=== PATIENT | female | born 1930 | race Caucasian/White ===

== ENCOUNTER 2016-05-05 06:50 | Emergency (ER) | payer MEDICARE ==
--- NOTE | 2016-05-05 08:33 | EDM.PDOC ---
ED HISTORY OF PRESENT ILLNESS - General Chief Complaint: Chest Pain Stated Complaint: CHEST PAIN Time Seen by Provider: 05/05/16 07:00 Source of Information: Reports: Patient History Limitations: Reports: No limitations - History of Present Illness INITIAL COMMENTS - FREE TEXT/NARRATIVE: History of present illness: [] patient started having substernal nonradiating chest pain 11:15 last night and took 3 of her nitroglycerin's without complete resolution of pain she continued to have pain and called the ambulance. The worse pain is right at 4/ 10 and when I interviewed at bedside her pain was completely subsided. She denies any shortness of breath at this time although she felt short of breath when the pain first started. She denies any dizziness, syncope, sweating, nausea or vomiting. Review of systems: As per history of present illness and below otherwise all systems reviewed and negative. Past medical history: As per history of present illness and as reviewed below otherwise noncontributory. Surgical history: As per history of present illness and as reviewed below otherwise noncontributory. Social history: No reported history of drug or alcohol abuse. Family history: As per history of present illness and as reviewed below otherwise noncontributory. Physical exam: General: Well developed, well nourished in NAD HEENT: Atraumatic, normocephalic, pupils reactive, negative for conjunctival pallor or scleral icterus, mucous membranes moist, throat clear, neck supple, nontender, trachea midline. Lungs: Clear to auscultation, breath sounds equal bilaterally, chest nontender. Heart: S1S2, regular, negative for clicks, rubs, or JVD. Abdomen: Soft, nondistended, nontender. Negative for masses or hepatosplenomegaly. Negative for costovertebral tenderness. Pelvis: Stable nontender. Genitourinary: Deferred. Rectal: Deferred. Extremities: Atraumatic, negative for cords or calf pain. Neurovascular unremarkable. Neuro: Awake, alert, oriented. Cranial nerves II through XII unremarkable. Cerebellum unremarkable. Motor and sensory unremarkable throughout. Exam nonfocal. Diagnostics: [] Labs x-ray EKG showing no signs of acute OR Therapeutics: [] Impression: [] Chest pain Plan: [] Followup with PMD or Dr. Vaca return to ED if symptoms worsen or change. Definitive disposition and diagnosis as appropriate pending reevaluation and review of above. - Related Data Allergies/ADRs: Allergies Allergy/AdvReac Type Severity Reaction Status Date / Time hydromorphone HCl Allergy Cannot Verified 05/05/16 07:04 [From Dilaudid] Remember Iodinated Contrast Media - Allergy Cannot Verified 05/05/16 07:04 Oral and Remember [Iodinated Contrast Media - IV Dye] meperidine HCl [From Demerol] Allergy Cannot Verified 05/05/16 07:04 Remember metoclopramide Allergy Cannot Verified 05/05/16 07:04 Remember Penicillins Allergy Cannot Verified 05/05/16 07:04 Remember propoxyphene HCl Allergy Cannot Verified 05/05/16 07:04 [From Darvon] Remember Home Meds: Home Meds Albuterol Sulfate [Proair Respiclick] 2 inhaler LOREE Q6H 05/05/16 [History] Furosemide [Lasix] 40 mg PO DAILY 05/05/16 [History] Iron Polysaccharide Complex [Poly-Iron] 150 mg PO DAILY 05/05/16 [History] Isosorbide Mononitrate [Imdur] 30 mg PO DAILY 05/05/16 [History] Levothyroxine [Synthroid] 1 tab PO DAILY 05/05/16 [History] Nitroglycerin [Nitrostat] 0.4 mg SL ASDIRECTED PRN 05/05/16 [History] Warfarin [Coumadin] 1 tab PO DAILY 05/05/16 [History] Past Medical History HEENT History: Reports: Other (see below) Other HEENT History: dysphagia Cardiovascular History: Reports: Hypertension, Other (see below) Other Cardiovascular History: lung nodule followed by CT Respiratory History: Reports: Bronchitis, recurrent, Other (see below) Other Respiratory History: On 07/16/[address] scan identified 6 mm nodule plural base. History of PE. Gastrointestinal History: Reports: Bowel obstruction, GERD Genitourinary History: Reports: None CHILD ADVOCATE History: Reports: Other OB/BYN History: Of breast cancer right side/right mastectomy Neurological History: Reports: Other (see below) Other Neuro History: tardive dyskinesia Psychiatric History: Reports: None Endocrine/Metabolic History: Reports: Hypothyroidism, Other (see below) Other Endocrine/Metabolic History: none Hematologic History: Reports: Anemia, Anticoagulation therapy Other Hematologic History: DVT and PE Immunologic History: Reports: Other (see below) Other Immunologic History: lupus Oncologic (Cancer) History: Reports: Breast, Other (see below) Other Oncologic History: left breast Dermatologic History: Reports: None - Infectious Disease History Infectious Disease History: Reports: Chicken pox, Measles, Mumps - Past Surgical History HEENT Surgical History: Reports: Adenoidectomy, Tonsillectomy Cardiovascular Surgical History: Reports: None GI Surgical History: Reports: Appendectomy, Other (see below) Other GI Surgeries/Procedures: laparotomy Female Surgical History: Reports: Breast biopsy, D&C, Hysterectomy, Mastectomy, Tubal ligation, Other (see below) Other Female Surgeries/Procedures: left masectomy Endocrine Surgical History: Reports: Thyroidectomy, Other (see below) Other Endocrine Surgeries/Procedures: goiter removal Oncologic Surgical History: Reports: Biopsy of breast, Mastectomy, Other (see below) Other Oncologic Surgeries/Procedures: left breast Social & Family History - Family History Family Medical History: Noncontributory - Tobacco Use Smoking Status *Q: Never Smoker Second Hand Smoke Exposure: No - Caffeine Use Caffeine Use: Reports: None - Recreational Drug Use Recreational Drug Use: No ED ROS GENERAL - Review of Systems Review Of Systems: See Below (See history of present illness) ED EXAM, GENERAL - Physical Exam Exam: See Below (See history of present illness) Course - Vital Signs Last Recorded V/S: Last Vital Signs Temp 36.9 C 05/05/16 08:50 Pulse 60 05/05/16 08:50 Resp 18 05/05/16 08:50 BP 131/72 05/05/16 08:50 Pulse Ox 100 05/05/16 08:50 - Orders/Labs/Meds Orders: Active Orders 24 hr Category Date Time Status Cardiac Monitoring [RC] . DIRECTED Care 05/05/16 07:00 Active EKG Documentation Completion [RC] STAT Care 05/05/16 07:00 Active Chest 1V Frontal [CR] Stat Exams 05/05/16 07:01 Taken Labs: Laboratory Tests 05/05/16 05/05/16 05/05/16 Range/Units 07:11 07:11 07:11 WBC 4.81 (4.0-11.0) K/uL RBC 3.29 L (4.30-5.90) M/uL Hgb 9.6 L (12.0-16.0) g/dL Hct 30.3 L (36.0-46.0) % MCV 92.1 (80.0-98.0) fL MCH 29.2 (27.0-32.0) pg MCHC 31.7 (31.0-37.0) g/dL RDW Std Deviation 53.8 (28.0-62.0) fl RDW Coeff of Avinash 16 H (11.0-15.0) % Plt Count 154 (150-400) K/uL MPV 9.00 (7.40-12.00) fL Neut % (Auto) 69.9 (48.0-80.0) % Lymph % (Auto) 18.1 (16.0-40.0) % [place] % (Auto) 8.1 (0.0-15.0) % Eos % (Auto) 3.5 (0.0-7.0) % Baso % (Auto) 0.4 (0.0-1.5) % Neut # 3.4 (1.4-5.7) K/uL Lymph # 0.9 (0.6-2.4) K/uL [place] # 0.4 (0.0-0.8) K/uL Eos # 0.2 (0.0-0.7) K/uL Baso # 0.0 (0.0-0.1) K/uL Nucleated RBC % 0.0 /100WBC Nucleated RBCs # 0 K/uL INR 1.01 (0.86-1.11) Sodium 138 (136-146) mmol/L Potassium 3.7 (3.5-5.1) mmol/L Chloride 102 (98-110) mmol/L Carbon Dioxide 26 (21-31) mmol/L BUN 12 (6.0-23.0) mg/dL Creatinine 0.9 (0.6-1.5) mg/dL Est Cr Clr Drug Dosing 38.49 mL/min Estimated GFR (MDRD) 59.7 ml/min Glucose 77 (60-110) mg/dL Calcium 8.5 L (8.8-10.8) mg/dL Total Bilirubin 0.2 (0.1-1.5) mg/dL AST 28 (5-40) IU/L ALT 15 (8-54) IU/L Alkaline Phosphatase 45 (40-150) CK-MB (CK-2) 6.7 H (0-6.6) ng/ml Troponin I (0.0-0.29) NG/ML B-Natriuretic Peptide (<100) PG/ML Total Protein 7.1 (6.0-8.0) g/dL Albumin 2.6 L (3.4-4.8) g/dL Globulin 4.5 H (2.0-3.5) g/dL Albumin/Globulin Ratio 0.6 L (1.3-2.8) 05/05/16 05/05/16 Range/Units 07:11 07:11 WBC (4.0-11.0) K/uL RBC (4.30-5.90) M/uL Hgb (12.0-16.0) g/dL Hct (36.0-46.0) % MCV (80.0-98.0) fL MCH (27.0-32.0) pg MCHC (31.0-37.0) g/dL RDW Std Deviation (28.0-62.0) fl RDW Coeff of Avinash (11.0-15.0) % Plt Count (150-400) K/uL MPV (7.40-12.00) fL Neut % (Auto) (48.0-80.0) % Lymph % (Auto) (16.0-40.0) % [place] % (Auto) (0.0-15.0) % Eos % (Auto) (0.0-7.0) % Baso % (Auto) (0.0-1.5) % Neut # (1.4-5.7) K/uL Lymph # (0.6-2.4) K/uL [place] # (0.0-0.8) K/uL Eos # (0.0-0.7) K/uL Baso # (0.0-0.1) K/uL Nucleated RBC % /100WBC Nucleated RBCs # K/uL INR (0.86-1.11) Sodium (136-146) mmol/L Potassium (3.5-5.1) mmol/L Chloride (98-110) mmol/L Carbon Dioxide (21-31) mmol/L BUN (6.0-23.0) mg/dL Creatinine (0.6-1.5) mg/dL Est Cr Clr Drug Dosing mL/min Estimated GFR (MDRD) ml/min Glucose (60-110) mg/dL Calcium (8.8-10.8) mg/dL Total Bilirubin (0.1-1.5) mg/dL AST (5-40) IU/L ALT (8-54) IU/L Alkaline Phosphatase (40-150) CK-MB (CK-2) (0-6.6) ng/ml Troponin I < 0.10 (0.0-0.29) NG/ML B-Natriuretic Peptide 113 H (<100) PG/ML Total Protein (6.0-8.0) g/dL Albumin (3.4-4.8) g/dL Globulin (2.0-3.5) g/dL Albumin/Globulin Ratio (1.3-2.8) Departure - Departure Time of Disposition: 08:33 Disposition: Home, Self-Care 01 Condition: good Clinical Impression: Chest pain Qualifiers: Chest pain type: unspecified Qualified Code(s): R07.9 - Chest pain, unspecified Referrals: Deandre Antony MD [Primary Care Provider] - Forms: ED Department Discharge Additional Instructions: The following information is given to patients seen in the emergency department who are being discharged to home. This information is to outline your options for follow-up care. We provide all patients seen in our emergency department with a follow-up referral. The need for follow-up, as well as the timing and circumstances, are variable depending upon the specifics of your emergency department visit. If you don't have a primary care physician on staff, we will provide you with a referral. We always advise you to contact your personal physician following an emergency department visit to inform them of the circumstance of the visit and for follow-up with them and/or the need for any referrals to a consulting specialist. The emergency department will also refer you to a specialist when appropriate. This referral assures that you have the opportunity for follow-up care with a specialist. All of these measure are taken in an effort to provide you with optimal care, which includes your follow-up. Under all circumstances we always encourage you to contact your private physician who remains a resource for coordinating your care. When calling for follow-up care, please make the office aware that this follow-up is from your recent emergency room visit. If for any reason you are refused follow-up, please contact the [facility] Emergency Department at and asked to speak to the emergency department charge nurse. Take one extra dose of her Coumadin today then continue regular dosing Follow up with Dr. Vaca on Monday at 10:30 AM [facility] [address] [place] [address] [phone]
[2016-05-05 09:05] VITALS: BP 131/72
--- NOTE | 2016-05-05 16:08 | CR ---
EXAM DATE: 05/05/16 PATIENT'S AGE: 85 Patient: KATHI ELIZONDO Facility: [place], [place] Site . Site : [id number] Study: XRay Chest [id number]/9/2017 9:24:28 AM Ordering Physician: José Miguel Benites Final Report: HISTORY: Chest pain. Technique: One view portable chest. Comparison: Chest x-ray 07/14/2015. Findings: Atelectasis or scarring at the left lung base. Bilateral peripheral increased interstitial opacities similar to prior. No airspace consolidation. No pleural effusion or pneumothorax. Cardiomediastinal silhouette is unchanged. Surgical clips in left axilla. Impression: Bilateral peripheral interstitial opacities similar to 07/14/2015 chest x-ray may be chronic fibrotic changes or interstitial edema. Dictated by Torey Gonzalez MD @ May 05 2016 9:29AM (Electronic Signature) Report Signed by Proxy and Original Signed Document filed in the Medical Record. MTDD
== END 2016-05-05 09:15 | disposition home or self-care (01) ==
LOC: MW.ED 06:50
DX: R07.2 Precordial pain (principal); I10 Essential (primary) hypertension; K21.9 Gastro-esophageal reflux disease without esophagitis; Z85.3 Personal history of malignant neoplasm of breast; Z90.11 Acquired absence of right breast and nipple; Z90.49 Acquired absence of other specified parts of digestive tract; Z98.890 Other specified postprocedural states; E89.0 Postprocedural hypothyroidism; Z90.710 Acquired absence of both cervix and uterus; Z79.899 Other long term (current) drug therapy; Z88.0 Allergy status to penicillin; Z88.8 Allergy status to other drugs, medicaments and biological substances; Z88.5 Allergy status to narcotic agent; Z91.041 Radiographic dye allergy status
CPT/HCPCS: 36415; 71010; 71010-26; 80053; 82553; 83880; 84484; 85025; 85610; 99284; 99285-25

== ENCOUNTER → 2016-05-10 | Outpatient (CLI) | payer MEDICARE | LOC: MW.CHIM 08:00 | PROVIDERS: ATTEND Internal Medicine | DX: I35.0 Nonrheumatic aortic (valve) stenosis (principal); I48.91 Unspecified atrial fibrillation; I20.9 Angina pectoris, unspecified; I10 Essential (primary) hypertension | CPT/HCPCS: 99214 ==

== ENCOUNTER → 2016-05-12 | Outpatient (CLI) | payer MEDICARE | LOC: MW.CHFP 08:00 | PROVIDERS: ATTEND Emergency Medicine | DX: Z51.81 Encounter for therapeutic drug level monitoring (principal); Z79.01 Long term (current) use of anticoagulants; I48.91 Unspecified atrial fibrillation | CPT/HCPCS: 85610; 99211 ==

== ENCOUNTER → 2016-05-24 | Outpatient (CLI) | payer MEDICARE ==
--- NOTE | 2016-05-24 10:50 | NM ---
EXAMINATION: Nuclear medicine myocardial perfusion study HISTORY: Atrial fibrillation. PROCEDURE: Following intravenous administration of 0.4 mg of Lexiscan and 27.4 mCi of technetium 99m sestamib i, stress SPECT images including gating imaging was performed. FINDINGS: Stress myocardial SPECT images demonstrates mildly decreased perfusion along the inferior wall from the midportion and base. Review of gated images demonstrates normal wall motion, contractility and wall thickening. The left ventricular ejection fraction is 66 %. The left ventricular chamber size is normal. IMPRESSION: 1. Mildly decreased perfusion along the inferior wall, correlation with rest imaging may be benefici al. 2. Normal ventricular chamber size and function with ejection fraction of 66 %.
--- NOTE | 2016-05-24 18:26 | PCM.PRNOTE ---
- Free Text/Narrative Note: Lexiscan Indication chest pain Patient was supervised today during infusion portion of the stress test. The patient received Regadenoson 0.4 mg IV and nuclear agent using standard protocol. Sestamibi Tm99 25 Mci was gievn afterwards Baseline blood pressure is 103/59 with a heart rate 67 EKG sinus rhythm without ST abnormalities Vital signs at injection: Peak blood pressure 109/59 with a heart rate of 67 Vital signs at 4 minutes post injection: Peak blood pressure 139/75 with a heart rate of 66 EKG sinus rhythm without further ST changes Patient complains of abdominal cramps and headaches spontaneously resolved Adverse effects from Liz scan none Test done due to end of protocol Impression 1. electrocardiographically nondiagnostic for ischemia due to chemical protocol 2. nuclear imaging pending
== END ==
LOC: MW.NM 06:53
PROVIDERS: ATTEND Internal Medicine
DX: I48.91 Unspecified atrial fibrillation (principal); Z51.81 Encounter for therapeutic drug level monitoring; Z79.01 Long term (current) use of anticoagulants; I82.409 Acute embolism and thrombosis of unspecified deep veins of unspecified lower extremity
CPT/HCPCS: 78451; 85610; 93017; 99211; A9500; J2785

== ENCOUNTER → 2016-06-08 | Outpatient (CLI) | payer MEDICARE ==
[2016-06-08 10:50] LABS: CHLORIDE,CL 98 mmol/L (98-110); SODIUM,NA 136 mmol/L (136-146)
== END ==
LOC: MW.CHFP 10:00
PROVIDERS: ATTEND Emergency Medicine
DX: I10 Essential (primary) hypertension (principal); E11.59 Type 2 diabetes mellitus with other circulatory complications; I20.9 Angina pectoris, unspecified; E78.5 Hyperlipidemia, unspecified; E61.1 Iron deficiency; E03.9 Hypothyroidism, unspecified; D68.61 Antiphospholipid syndrome; J45.909 Unspecified asthma, uncomplicated; F41.0 Panic disorder [episodic paroxysmal anxiety]; D50.9 Iron deficiency anemia, unspecified
CPT/HCPCS: 36415; 80053; 80061; 83036; 83550; 84443; 85027; 85610; G0463

== ENCOUNTER → 2016-06-09 | Outpatient (CLI) | payer MEDICARE | LOC: MW.CHFP 08:00 | PROVIDERS: ATTEND Emergency Medicine | DX: Z51.81 Encounter for therapeutic drug level monitoring (principal); Z79.01 Long term (current) use of anticoagulants; I48.91 Unspecified atrial fibrillation | CPT/HCPCS: 85610; 99211 ==

== ENCOUNTER → 2016-06-14 | Outpatient (CLI) | payer MEDICARE | LOC: MW.CHIM 08:00 | PROVIDERS: ATTEND Internal Medicine | DX: I20.9 Angina pectoris, unspecified (principal); I35.0 Nonrheumatic aortic (valve) stenosis; I82.409 Acute embolism and thrombosis of unspecified deep veins of unspecified lower extremity; E78.5 Hyperlipidemia, unspecified | CPT/HCPCS: 99214 ==

== ENCOUNTER → 2016-06-15 | Outpatient (CLI) | payer MEDICARE | END | disposition home or self-care (01) | LOC: MW.CHFP 09:12 | PROVIDERS: ATTEND Emergency Medicine | DX: I48.91 Unspecified atrial fibrillation (principal); I82.409 Acute embolism and thrombosis of unspecified deep veins of unspecified lower extremity | CPT/HCPCS: 36415; 85610 ==

== ENCOUNTER → 2016-06-23 | Outpatient (CLI) | payer MEDICARE | LOC: MW.CHFP 11:13 | PROVIDERS: ATTEND Emergency Medicine | DX: I82.409 Acute embolism and thrombosis of unspecified deep veins of unspecified lower extremity (principal); Z51.81 Encounter for therapeutic drug level monitoring; Z79.01 Long term (current) use of anticoagulants; I48.91 Unspecified atrial fibrillation | CPT/HCPCS: 36415; 85014; 85018; 85610; 99211 ==

== ENCOUNTER → 2016-07-07 | Outpatient (CLI) | payer MEDICARE | LOC: MW.CHFP 08:00 | PROVIDERS: ATTEND Emergency Medicine | DX: Z51.81 Encounter for therapeutic drug level monitoring (principal); Z79.01 Long term (current) use of anticoagulants; I48.91 Unspecified atrial fibrillation | CPT/HCPCS: 85610; 99211 ==

== ENCOUNTER 2016-10-27 14:04 | Emergency (ER) | payer MEDICARE, SELFPAY ==
[2016-10-27 14:16] VITALS: BP 165/72
--- NOTE | 2016-10-27 14:53 | CR ---
EXAMINATION: Left shoulder HISTORY: Fall COMPARISON: None TECHNIQUE: 3 views FINDINGS: There is mildly displaced mid left clavicle fracture. The acromioclavicular and glenohumera l joints are preserved. The osseous structures appear mildly osteopenic. Clips project over the axill jack region. IMPRESSION: 1. Mid clavicle fracture.
--- NOTE | 2016-10-27 15:11 | EDM.PDOC ---
ED HPI GENERAL MEDICAL PROBLEM - General Chief Complaint: Upper Extremity Injury/Pain Stated Complaint: LEFT SHOULDER PAIN FROM FALL Time Seen by Provider: 10/27/16 15:04 - History of Present Illness INITIAL COMMENTS - FREE TEXT/NARRATIVE: HISTORY AND PHYSICAL: History of present illness: Patient is an 85-year-old white female presents status post fall she injured her left shoulder/clavicle she did this when she fell down approximately 8 stairs she denies any other trauma or concern she does have a history of chronic back pain and she is on multiple medicines including Coumadin she is followed at Coumadin clinic and had her last PT/INR check several weeks prior Review of systems: As per history of present illness and below otherwise all systems reviewed and negative. Past medical history: As per history of present illness and as reviewed below otherwise noncontributory. Surgical history: As per history of present illness and as reviewed below otherwise noncontributory. Social history: No reported history of drug or alcohol abuse. Family history: As per history of present illness and as reviewed below otherwise noncontributory. Physical exam: HEENT: Atraumatic, normocephalic, pupils reactive, negative for conjunctival pallor or scleral icterus, mucous membranes moist, throat clear, neck supple, nontender, trachea midline. Lungs: Clear to auscultation, breath sounds equal bilaterally, chest with left clavicle tenderness and what appears to be an obvious mid clavicle fracture clinically. Heart: S1S2, , negative for clicks, rubs, or JVD. Abdomen: Soft, nondistended, nontender. Negative for masses or hepatosplenomegaly. Negative for costovertebral tenderness. Pelvis: Stable nontender. Genitourinary: Deferred. Rectal: Deferred. Extremities: Atraumatic, negative for cords or calf pain. Neurovascular unremarkable. Neuro: Awake, alert, oriented. Cranial nerves II through XII unremarkable. Cerebellum unremarkable. Motor and sensory unremarkable throughout. Exam nonfocal. Diagnostics: CBC CMP PT/INR x-ray left shoulder CT brain EKG Therapeutics: To be determined Impression: #1 observation status post fall #2 left clavicle fracture Definitive disposition and diagnosis as appropriate pending reevaluation and review of above. Left Shoulder Pain Score (Numeric/FACES): 10 - Related Data Allergies Allergy/AdvReac Type Severity Reaction Status Date / Time hydromorphone HCl Allergy Other Verified 10/27/16 14:17 [From Dilaudid] Iodinated Contrast- Oral and Allergy Cannot Verified 10/27/16 14:17 IV Dye Remember [Iodinated Contrast Media - IV Dye] meperidine HCl [From Demerol] Allergy Hallucinati Verified 10/27/16 14:17 ons metoclopramide Allergy Cannot Verified 10/27/16 14:17 Remember Penicillins Allergy Swelling Verified 10/27/16 14:17 propoxyphene HCl Allergy Hallucinati Verified 10/27/16 14:17 [From Darvon] ons Home Meds: Home Meds Furosemide [Lasix] 40 mg PO DAILY 05/05/16 [History] Iron Polysaccharide Complex [Poly-Iron] 150 mg PO DAILY 05/05/16 [History] Isosorbide Mononitrate [Imdur] 30 mg PO DAILY 05/05/16 [History] Levothyroxine [Synthroid] 88 mcg PO DAILY 05/05/16 [History] Warfarin [Coumadin] 7.5 mg PO DAILY 05/05/16 [History] Acetaminophen with Codeine [Acetaminophen-Cod #3] 30 - 300 mg PO QID PRN [History] Atenolol [Tenormin] 50 mg PO BID 10/27/16 [History] Midodrine 2.5 mg PO DAILY 10/27/16 [History] Potassium Chloride 40 meq PO DAILY 10/27/16 [History] Past Medical History - Past Health History Medical/Surgical History: Denies Medical/Surgical History HEENT History: Reports: Other (See Below) Other HEENT History: dysphagia Cardiovascular History: Reports: Hypertension, [place] Other Cardiovascular History: lung nodule followed by CT Respiratory History: Reports: Bronchitis, Recurrent, Other (See Below) Other Respiratory History: On 07/16/[address] scan identified 6 mm nodule plural base. History of PE. Gastrointestinal History: Reports: Bowel Obstruction, GERD Genitourinary History: Reports: None ADVOCACY DIRECTOR History: Reports: Other OB/BYN History: Of breast cancer right side/right mastectomy Neurological History: Reports: CVA Other Neuro History: stroke 1991 Psychiatric History: Reports: None Endocrine/Metabolic History: Reports: Hypothyroidism, Other (See Below) Other Endocrine/Metabolic History: none Hematologic History: Reports: Anemia, Anticoagulation Therapy Other Hematologic History: DVT and PE Immunologic History: Reports: Other (See Below) Other Immunologic History: lupus Oncologic (Cancer) History: Reports: Breast Other Oncologic History: left breast removed Dermatologic History: Reports: None - Infectious Disease History Infectious Disease History: Reports: Chicken Pox, Measles, Mumps - Past Surgical History Cardiovascular Surgical History: Reports: None GI Surgical History: Reports: Appendectomy Other GI Surgeries/Procedures: surgery for bowel obstruction Female Surgical History: Reports: Breast Biopsy, D&C, Hysterectomy, Mastectomy, Other (See Below), Tubal Ligation Other Female Surgeries/Procedures: left breast removed Endocrine Surgical History: Reports: Thyroidectomy Oncologic Surgical History: Reports: Biopsy of Breast, Mastectomy, Other (See Below) Social & Family History - Family History Family Medical History: Noncontributory - Tobacco Use Smoking Status *Q: Never Smoker Second Hand Smoke Exposure: No - Caffeine Use Caffeine Use: Reports: Coffee Caffeine Use Comment: 3cups/day - Recreational Drug Use Recreational Drug Use: No Review of Systems - Review of Systems Review Of Systems: ROS reveals no pertinent complaints other than HPI. ED EXAM, GENERAL - Physical Exam Exam: See Below (See dictation) Course - Vital Signs Last Recorded V/S: Last Vital Signs Temp 36.8 C 10/27/16 14:09 Pulse 98 10/27/16 14:09 Resp 21 H 10/27/16 14:09 BP 165/72 H 10/27/16 14:09 Pulse Ox 97 10/27/16 14:09 - Orders/Labs/Meds Orders: Active Orders 24 hr Category Date Time Status EKG Documentation Completion [RC] STAT Care 10/27/16 15:08 Active Labs: Laboratory Tests 10/27/16 10/27/16 10/27/16 Range/Units 15:30 15:30 15:30 WBC 5.53 (4.0-11.0) K/uL RBC 3.37 L (4.30-5.90) M/uL Hgb 10.1 L (12.0-16.0) g/dL Hct 31.2 L (36.0-46.0) % MCV 92.6 (80.0-98.0) fL MCH 30.0 (27.0-32.0) pg MCHC 32.4 (31.0-37.0) g/dL RDW Std Deviation 54.6 (28.0-62.0) fl RDW Coeff of Avinash 16 H (11.0-15.0) % Plt Count 167 (150-400) K/uL MPV 9.20 (7.40-12.00) fL Neut % (Auto) 77.2 (48.0-80.0) % Lymph % (Auto) 12.1 L (16.0-40.0) % [place] % (Auto) 9.2 (0.0-15.0) % Eos % (Auto) 1.3 (0.0-7.0) % Baso % (Auto) 0.2 (0.0-1.5) % Neut # (Auto) 4.3 (1.4-5.7) K/uL Lymph # (Auto) 0.7 (0.6-2.4) K/uL [place] # (Auto) 0.5 (0.0-0.8) K/uL Eos # (Auto) 0.1 (0.0-0.7) K/uL Baso # (Auto) 0.0 (0.0-0.1) K/uL Nucleated RBC % 0.0 /100WBC Nucleated RBCs # 0 K/uL INR 4.04 H (0.86-1.11) Sodium 135 L (136-146) mmol/L Potassium 4.0 (3.5-5.1) mmol/L Chloride 102 (98-110) mmol/L Carbon Dioxide 22 (21-31) mmol/L BUN 15 (6.0-23.0) mg/dL Creatinine 1.0 (0.6-1.5) mg/dL Est Cr Clr Drug Dosing 34.64 mL/min Estimated GFR (MDRD) 52.8 ml/min Glucose 100 (60-110) mg/dL Calcium 9.1 (8.8-10.8) mg/dL Total Bilirubin 0.2 (0.1-1.5) mg/dL AST 21 (5-40) IU/L ALT 11 (8-54) IU/L Alkaline Phosphatase 47 (40-150) Total Protein 7.6 (6.0-8.0) g/dL Albumin 2.9 L (3.4-4.8) g/dL Globulin 4.7 H (2.0-3.5) g/dL Albumin/Globulin Ratio 0.6 L (1.3-2.8) Departure - Departure Time of Disposition: 16:23 Disposition: Home, Self-Care 01 Condition: Good Clinical Impression: Fracture of clavicle - Discharge Information Referrals: PCP,Unknown [Primary Care Provider] - Forms: ED Department Discharge Additional Instructions: The following information is given to patients seen in the emergency department who are being discharged to home. This information is to outline your options for follow-up care. We provide all patients seen in our emergency department with a follow-up referral. The need for follow-up, as well as the timing and circumstances, are variable depending upon the specifics of your emergency department visit. If you don't have a primary care physician on staff, we will provide you with a referral. We always advise you to contact your personal physician following an emergency department visit to inform them of the circumstance of the visit and for follow-up with them and/or the need for any referrals to a consulting specialist. The emergency department will also refer you to a specialist when appropriate. This referral assures that you have the opportunity for followup care with a specialist. All of these measure are taken in an effort to provide you with optimal care, which includes your followup. Under all circumstances we always encourage you to contact your private physician who remains a resource for coordinating your care. When calling for followup care, please make the office aware that this follow-up is from your recent emergency room visit. If for any reason you are refused follow-up, please contact the [facility] emergency department at and asked to speak to the emergency department charge nurse. [facility] Professional [address], [address] [place] [address] Sling as directed continue current medications hold Coumadin 2 days then resume follow-up with Coumadin clinic and/or private medical doctor for repeat PT/INR call to schedule appointment with orthopedic clinic as discussed return as needed as discussed - My Orders Last 24 Hours: My Active Orders 10/27/16 15:08 EKG Documentation Completion [RC] STAT - Assessment/Plan Last 24 Hours: My Active Orders 10/27/16 15:08 EKG Documentation Completion [RC] STAT
--- NOTE | 2016-10-27 16:07 | CT ---
EXAMINATION: Non contrast CT head. Coronal and sagittal reformats. HISTORY: Pain FINDINGS: No evidence of intra or extra axial hemorrhage, mass, midline shift, hydrocephalus or edema. Moderat e generalized atrophy. No hypoattenuation changes in the major vascular territories to suggest acute infarct. Likely old tin y right basal ganglia lacunar infarct. No abnormal intracranial calcifications are detected. No evidence of substantial vascular calcificat ions. Paranasal sinuses and mastoid air cells are well aerated without substantial findings. Pituitary fossa appears unremarkable. The orbits and globes are symmetric. Calvarium is intact. No evidence of skull fracture. IMPRESSION: 1. No acute intracranial findings. 2. Moderate generalized atrophy.
== END 2016-10-27 16:52 | disposition home or self-care (01) ==
LOC: MW.ED 14:04
DX: S42.022A Displaced fracture of shaft of left clavicle, initial encounter for closed fracture (principal); E03.9 Hypothyroidism, unspecified; K21.9 Gastro-esophageal reflux disease without esophagitis; Z86.718 Personal history of other venous thrombosis and embolism; Z86.711 Personal history of pulmonary embolism; Z91.041 Radiographic dye allergy status; Z88.0 Allergy status to penicillin; Z88.8 Allergy status to other drugs, medicaments and biological substances; Z79.899 Other long term (current) drug therapy; Z79.01 Long term (current) use of anticoagulants; Z86.73 Personal history of transient ischemic attack (TIA), and cerebral infarction without residual deficits; Z90.49 Acquired absence of other specified parts of digestive tract; W10.9XXA Fall (on) (from) unspecified stairs and steps, initial encounter; Z88.5 Allergy status to narcotic agent
CPT/HCPCS: 36415; 70450; 73030; 80053; 85025; 85610; 93005; 99284; A4566; 99283

== ENCOUNTER 2018-06-01 16:59 | Inpatient (IN) | payer MEDICARE ==
[2018-06-01] MEDS ORDERED: Sodium Chloride 0.9% 10 ML SDV IV PRN (17:01)
[2018-06-01] MEDS ORDERED: Sodium Chloride 0.9% 10 ML Syringe FLUSH PRN (17:01)
[2018-06-01] MEDS ORDERED: Sodium Chloride 0.9% 2.5 ML Syringe FLUSH PRN (17:01)
--- NOTE | 2018-06-01 17:31 | EDM.PDOC ---
ED HPI GENERAL MEDICAL PROBLEM - General Chief Complaint: Neuro Symptoms/Deficits Stated Complaint: POSSIBLE STROKE Time Seen by Provider: 06/01/18 17:01 Source of Information: Reports: Patient History Limitations: Reports: No Limitations - History of Present Illness INITIAL COMMENTS - FREE TEXT/NARRATIVE: History of present illness: []She was brought in by her daughter after she found her at 5 PM unable to plate a sentence and and saying random words. She did not have slurred speech and she has not noted any motor function or facial droop but this behavior is very abnormal for her. The daughter states she normally is very clear and coherent and speaks well. Stroke code was called on patient's arrival Review of systems: As per history of present illness and below otherwise all systems reviewed and negative. Past medical history: As per history of present illness and as reviewed below otherwise noncontributory. Surgical history: As per history of present illness and as reviewed below otherwise noncontributory. Social history: No reported history of drug or alcohol abuse. Family history: As per history of present illness and as reviewed below otherwise noncontributory. Physical exam: General: Well developed, well nourished in NAD HEENT: Atraumatic, normocephalic, pupils reactive, negative for conjunctival pallor or scleral icterus, mucous membranes moist, throat clear, neck supple, nontender, trachea midline. Lungs: Clear to auscultation, breath sounds equal bilaterally, chest nontender. Heart: S1S2, regular, negative for clicks, rubs, or JVD. Abdomen: NABS, Soft, nondistended, nontender. Negative for masses or hepatosplenomegaly. Negative for costovertebral tenderness. Pelvis: Stable nontender. Genitourinary: Deferred. Rectal: Deferred. Extremities: Atraumatic, negative for cords or calf pain. Neurovascular unremarkable. Neuro: Awake, alert, oriented. Cranial nerves II through XII unremarkable. Cerebellum unremarkable. Motor and sensory unremarkable throughout. Exam nonfocal. Skin:warm and dry Diagnostics: Stroke workup including CT head-neg bleed left, subacure infarct parietal lobe, CBC, chemistry, troponin, TSH, EKG Therapeutics: None ED Course: 17:45- discussed with Dr. Weber at [facility] neurology and he recommends admission for further stroke workup. Patient is beyond the time of any interventions Impression: CVA left parietal Prescriptions: Plan: Admit to Dr. Alves he accepts patient at 17:54 Definitive disposition and diagnosis as appropriate pending reevaluation and review of above. chest Pain Score (Numeric/FACES): 10 - Related Data Allergies Allergy/AdvReac Type Severity Reaction Status Date / Time hydromorphone HCl Allergy Other Verified 10/27/16 14:17 [From Dilaudid] Iodinated Contrast- Oral and Allergy Cannot Verified 10/27/16 14:17 IV Dye Remember [Iodinated Contrast Media - IV Dye] meperidine HCl [From Demerol] Allergy Hallucinati Verified 10/27/16 14:17 ons metoclopramide Allergy Cannot Verified 10/27/16 14:17 Remember Penicillins Allergy Swelling Verified 10/27/16 14:17 propoxyphene HCl Allergy Hallucinati Verified 10/27/16 14:17 [From Darvon] ons Home Meds: Home Meds Furosemide [Lasix] 40 mg PO DAILY 05/05/16 [History] Iron Polysaccharide Complex [Poly-Iron] 150 mg PO DAILY 05/05/16 [History] Isosorbide Mononitrate [Imdur] 30 mg PO DAILY 05/05/16 [History] Levothyroxine [Synthroid] 100 mcg PO DAILY 05/05/16 [History] Atenolol [Tenormin] 50 mg PO BID 10/27/16 [History] Potassium Chloride 40 meq PO DAILY 10/27/16 [History] Folic Acid 1 mg PO DAILY 06/01/18 [History] Turmeric Root Extract [Turmeric Curcumin] 1 cap PO DAILY 06/01/18 [History] Past Medical History - Past Health History Medical/Surgical History: Denies Medical/Surgical History HEENT History: Reports: Other (See Below) Other HEENT History: dysphagia Cardiovascular History: Reports: Hypertension, [place] Other Cardiovascular History: lung nodule followed by CT Respiratory History: Reports: Bronchitis, Recurrent, Other (See Below) Other Respiratory History: On 07/16/[address] scan identified 6 mm nodule plural base. History of PE. Gastrointestinal History: Reports: Bowel Obstruction, GERD Genitourinary History: Reports: None CERTIFIED CREDIT COUNSELOR History: Reports: Other CERTIFIED CREDIT COUNSELOR History: Of breast cancer right side/right mastectomy Neurological History: Reports: CVA Other Neuro History: stroke 1991 Psychiatric History: Reports: None Endocrine/Metabolic History: Reports: Hypothyroidism, Other (See Below) Other Endocrine/Metabolic History: none Hematologic History: Reports: Anemia, Anticoagulation Therapy Other Hematologic History: DVT and PE Immunologic History: Reports: Other (See Below) Other Immunologic History: lupus Oncologic (Cancer) History: Reports: Breast Other Oncologic History: left breast removed Dermatologic History: Reports: None - Infectious Disease History Infectious Disease History: Reports: Chicken Pox, Measles, Mumps - Past Surgical History Cardiovascular Surgical History: Reports: None GI Surgical History: Reports: Appendectomy Other GI Surgeries/Procedures: surgery for bowel obstruction Female Surgical History: Reports: Breast Biopsy, D&C, Hysterectomy, Mastectomy, Other (See Below), Tubal Ligation Other Female Surgeries/Procedures: left breast removed Endocrine Surgical History: Reports: Thyroidectomy Oncologic Surgical History: Reports: Biopsy of Breast, Mastectomy, Other (See Below) Social & Family History - Family History Family Medical History: Noncontributory - Tobacco Use Smoking Status *Q: Never Smoker - Caffeine Use Caffeine Use: Reports: Coffee Caffeine Use Comment: 3cups/day - Recreational Drug Use Recreational Drug Use: No ED ROS GENERAL - Review of Systems Review Of Systems: ROS reveals no pertinent complaints other than HPI. ED EXAM, NEURO - Physical Exam Exam: See Below (See history of present illness) Course - Vital Signs Last Recorded V/S: Last Vital Signs Temp Pulse 74 06/01/18 17:20 Resp 24 H 06/01/18 17:20 BP 140/64 06/01/18 17:20 Pulse Ox 95 06/01/18 17:20 - Orders/Labs/Meds Orders: Active Orders 24 hr Category Date Time Status Patient Status [ADT] Stat ADT 06/01/18 17:52 Ordered Assess Neurological Status [RC] ASDIRECTED Care 06/01/18 17:01 Active Bedrest [RC] ASDIRECTED Care 06/01/18 17:01 Active Cardiac Monitoring [RC] . DIRECTED Care 06/01/18 17:01 Active EKG Documentation Completion [RC] STAT Care 06/01/18 17:01 Active Height and Weight [RC] UPON Care 06/01/18 17:01 Active Initiate Acute Stroke Protocol [RC] STAT Care 06/01/18 17:01 Active NIH Stroke Scale [RC] ASDIRECTED Care 06/01/18 17:01 Active Nursing Bedside Swallow Screen [RC] ASDIRECTED Care 06/01/18 17:01 Active Oxygen Therapy [RC] ASDIRECTED Care 06/01/18 17:01 Active Stroke Education, General [RC] Click to Edit Care 06/01/18 17:01 Active Vital Signs [RC] Q15M Care 06/01/18 17:01 Active Head wo Cont [CT] Stat Exams 06/01/18 17:01 Taken CBC WITH AUTO DIFF [HEME] Stat Lab 06/01/18 17:01 Ordered COMPREHENSIVE METABOLIC PN,CMP [CHEM] Stat Lab 06/01/18 17:01 Ordered INR,PT,PROTHROMBIN TIME [COAG] Stat Lab 06/01/18 17:01 Ordered PTT,PARTIAL THROMBOPLSTIN TIME [COAG] Stat Lab 06/01/18 17:01 Ordered TROPONIN I [CHEM] Stat Lab 06/01/18 17:01 Ordered TSH [CHEM] Stat Lab 06/01/18 17:01 Ordered Sodium Chloride 0.9% [Normal Saline] Med 06/01/18 17:01 Active 10 ml IV ASDIRECTED PRN Sodium Chloride 0.9% [Saline Flush] Med 06/01/18 17:01 Active 10 ml FLUSH ASDIRECTED PRN Sodium Chloride 0.9% [Saline Flush] Med 06/01/18 17:01 Active 2.5 ml FLUSH ASDIRECTED PRN Peripheral IV Insertion Adult [OM.PC] Stat Oth 06/01/18 17:01 Ordered Peripheral IV Insertion Adult [OM.PC] Stat Oth 06/01/18 17:01 Ordered Medication Orders Sodium Chloride (Saline Flush) 10 ml FLUSH ASDIRECTED PRN PRN Reason: Keep Vein Open Sodium Chloride (Saline Flush) 2.5 ml FLUSH ASDIRECTED PRN PRN Reason: Keep Vein Open Sodium Chloride (Normal Saline) 10 ml IV ASDIRECTED PRN PRN Reason: IV Use Meds: Medications Generic Name Dose Route Start Last Admin Trade Name Freq PRN Reason Stop Dose Admin Sodium Chloride 10 ml 06/01/18 17:01 Saline Flush FLUSH ASDIRECTED PRN Keep Vein Open Sodium Chloride 2.5 ml 06/01/18 17:01 Saline Flush FLUSH ASDIRECTED PRN Keep Vein Open Sodium Chloride 10 ml 06/01/18 17:01 Normal Saline IV ASDIRECTED PRN IV Use Departure - Departure Time of Disposition: 17:55 Disposition: Admitted As Inpatient 67 Condition: Good Clinical Impression: CVA (cerebral vascular accident) Qualifiers: CVA mechanism: unspecified Qualified Code(s): I63.9 - Cerebral infarction, unspecified - Discharge Information *PRESCRIPTION DRUG MONITORING PROGRAM REVIEWED*: No *COPY OF PRESCRIPTION DRUG MONITORING REPORT IN PATIENT DAREN: No Referrals: PCP,Unknown [Primary Care Provider] - Forms: ED Department Discharge - My Orders Last 24 Hours: My Active Orders 06/01/18 17:01 Assess Neurological Status [RC] ASDIRECTED Bedrest [RC] ASDIRECTED Cardiac Monitoring [RC] . DIRECTED EKG Documentation Completion [RC] STAT Height and Weight [RC] UPON Initiate Acute Stroke Protocol [RC] STAT NIH Stroke Scale [RC] ASDIRECTED Nursing Bedside Swallow Screen [RC] ASDIRECTED Oxygen Therapy [RC] ASDIRECTED Stroke Education, General [RC] Click to Edit Vital Signs [RC] Q15M Head wo Cont [CT] Stat CBC WITH AUTO DIFF [HEME] Stat COMPREHENSIVE METABOLIC PN,CMP [CHEM] Stat INR,PT,PROTHROMBIN TIME [COAG] Stat PTT,PARTIAL THROMBOPLSTIN TIME [COAG] Stat TROPONIN I [CHEM] Stat TSH [CHEM] Stat Sodium Chloride 0.9% [Normal Saline] 10 ml IV ASDIRECTED PRN Sodium Chloride 0.9% [Saline Flush] 10 ml FLUSH ASDIRECTED PRN Sodium Chloride 0.9% [Saline Flush] 2.5 ml FLUSH ASDIRECTED PRN Peripheral IV Insertion Adult [OM.PC] Stat Peripheral IV Insertion Adult [OM.PC] Stat 06/01/18 17:52 Patient Status [ADT] Stat - Assessment/Plan Last 24 Hours: My Active Orders 06/01/18 17:01 Assess Neurological Status [RC] ASDIRECTED Bedrest [RC] ASDIRECTED Cardiac Monitoring [RC] . DIRECTED EKG Documentation Completion [RC] STAT Height and Weight [RC] UPON Initiate Acute Stroke Protocol [RC] STAT NIH Stroke Scale [RC] ASDIRECTED Nursing Bedside Swallow Screen [RC] ASDIRECTED Oxygen Therapy [RC] ASDIRECTED Stroke Education, General [RC] Click to Edit Vital Signs [RC] Q15M Head wo Cont [CT] Stat CBC WITH AUTO DIFF [HEME] Stat COMPREHENSIVE METABOLIC PN,CMP [CHEM] Stat INR,PT,PROTHROMBIN TIME [COAG] Stat PTT,PARTIAL THROMBOPLSTIN TIME [COAG] Stat TROPONIN I [CHEM] Stat TSH [CHEM] Stat Sodium Chloride 0.9% [Normal Saline] 10 ml IV ASDIRECTED PRN Sodium Chloride 0.9% [Saline Flush] 10 ml FLUSH ASDIRECTED PRN Sodium Chloride 0.9% [Saline Flush] 2.5 ml FLUSH ASDIRECTED PRN Peripheral IV Insertion Adult [OM.PC] Stat Peripheral IV Insertion Adult [OM.PC] Stat 06/01/18 17:52 Patient Status [ADT] Stat
[2018-06-01 18:41] LABS: CHLORIDE,CL 98 mmol/L (98-107); SODIUM,NA 136 mmol/L (136-145)
--- NOTE | 2018-06-01 18:43 | PCM.HP ---
H&P History of Present Illness - General Date of Service: 06/01/18 Admit Problem/Dx: Admission Diagnosis/Problem Admission Diagnosis/Problem CVA, Cerebrovascular accident - History of Present Illness Initial Comments - Free Text/Narative: The patient is a 87 year old female who presented to the ER with difficulty speaking and not making sense to her daughter. Her daughter went to her house around 5 pm and discovered her like this, last known normal was yesterday at the same time. Patient reports difficulty finding words. Daughter and patient denies any extremity weakness, facial droop, or slurred speech. The patient has a history of CVA back in 1991 without any residual effects. She also has a past medical history of GA, HTN, hypothyroidism, and PE. She denies headahce, vision changes, shortness of breath, abdominal pain, nausea/vomiting, constipation/diarrhea, burning with urination. The daughter reports the patient lives at home with her but notes both their memories aren't great. The patient does complain of sharp chest pain on the left side, non radiating, that is reproducible on palpation. She denies recent falls. In the ER workup included CBC, CMP, INR, and troponin. She has a hemoglobin of 9.9 but has a history of anemia and is at her baseline hemoglobin. CT of the head showed small to moderate subacute infarct of the left parietal lobe, no hemorrhage, with age related atrophy. chest Pain Score (Numeric/FACES): 10 - Related Data Allergies/Adverse Reactions: Allergies Allergy/AdvReac Type Severity Reaction Status Date / Time hydromorphone HCl Allergy Other Verified 10/27/16 14:17 [From Dilaudid] Iodinated Contrast- Oral and Allergy Cannot Verified 10/27/16 14:17 IV Dye Remember [Iodinated Contrast Media - IV Dye] meperidine HCl [From Demerol] Allergy Hallucinati Verified 10/27/16 14:17 ons metoclopramide Allergy Cannot Verified 10/27/16 14:17 Remember Penicillins Allergy Swelling Verified 10/27/16 14:17 propoxyphene HCl Allergy Hallucinati Verified 10/27/16 14:17 [From Darvon] ons Home Medications: Home Meds Furosemide [Lasix] 40 mg PO DAILY 05/05/16 [History] Iron Polysaccharide Complex [Poly-Iron] 150 mg PO DAILY 05/05/16 [History] Isosorbide Mononitrate [Imdur] 30 mg PO DAILY 05/05/16 [History] Levothyroxine [Synthroid] 100 mcg PO DAILY 05/05/16 [History] Atenolol [Tenormin] 50 mg PO BID 10/27/16 [History] Potassium Chloride 40 meq PO DAILY 10/27/16 [History] Folic Acid 1 mg PO DAILY 06/01/18 [History] Turmeric Root Extract [Turmeric Curcumin] 1 cap PO DAILY 06/01/18 [History] Past Medical History - Past Health History Medical/Surgical History: Denies Medical/Surgical History HEENT History: Reports: Other (See Below) Other HEENT History: dysphagia Cardiovascular History: Reports: Hypertension, [place] Other Cardiovascular History: lung nodule followed by CT Respiratory History: Reports: Bronchitis, Recurrent, Other (See Below) Other Respiratory History: On 07/16/[address] scan identified 6 mm nodule plural base. History of PE. Gastrointestinal History: Reports: Bowel Obstruction, GERD Genitourinary History: Reports: None DEAN OF EDUCATION History: Reports: Other OB/BYN History: Of breast cancer right side/right mastectomy Neurological History: Reports: CVA Other Neuro History: stroke 1991 Psychiatric History: Reports: None Endocrine/Metabolic History: Reports: Hypothyroidism, Other (See Below) Other Endocrine/Metabolic History: none Hematologic History: Reports: Anemia, Anticoagulation Therapy Other Hematologic History: DVT and PE Immunologic History: Reports: Other (See Below) Other Immunologic History: lupus Oncologic (Cancer) History: Reports: Breast Other Oncologic History: left breast removed Dermatologic History: Reports: None - Infectious Disease History Infectious Disease History: Reports: Chicken Pox, Measles, Mumps - Past Surgical History Cardiovascular Surgical History: Reports: None GI Surgical History: Reports: Appendectomy Other GI Surgeries/Procedures: surgery for bowel obstruction Female Surgical History: Reports: Breast Biopsy, D&C, Hysterectomy, Mastectomy, Other (See Below), Tubal Ligation Other Female Surgeries/Procedures: left breast removed Endocrine Surgical History: Reports: Thyroidectomy Oncologic Surgical History: Reports: Biopsy of Breast, Mastectomy, Other (See Below) Social & Family History - Family History Family Medical History: Noncontributory - Tobacco Use Smoking Status *Q: Never Smoker - Caffeine Use Caffeine Use: Reports: Coffee Caffeine Use Comment: 3cups/day - Recreational Drug Use Recreational Drug Use: No H&P Review of Systems - Review of Systems: Review Of Systems: See Below General: Reports: No Symptoms HEENT: Reports: No Symptoms Pulmonary: Reports: No Symptoms Cardiovascular: Reports: Chest Pain Gastrointestinal: Reports: No Symptoms Genitourinary: Reports: No Symptoms Musculoskeletal: Reports: No Symptoms Skin: Reports: No Symptoms Psychiatric: Reports: No Symptoms Neurological: Reports: Change in Speech Hematologic/Lymphatic: Reports: Anemia Immunologic: Reports: No Symptoms Exam - Exam Exam: See Below - Vital Signs Vital Signs: Last Vital Signs Temp Pulse 74 06/01/18 17:20 Resp 24 H 06/01/18 17:20 BP 140/64 06/01/18 17:20 Pulse Ox 95 06/01/18 17:20 Weight: 58.967 kg - Exam General: Alert, Cooperative. No: Oriented HEENT: Conjunctiva Clear, EOMI, Mucosa Moist & [place], Posterior Pharynx Clear, Pupils Equal, Pupils Reactive Neck: Supple, Trachea Midline Lungs: Clear to Auscultation, Normal Respiratory Effort Cardiovascular: Regular Rate, Regular Rhythm GI/Abdominal Exam: Normal Bowel Sounds, Soft, Non-Tender, No Distention Extremities: No Pedal Edema Skin: Warm, Dry Neuro Extensive - Mental Status: Alert. No: Oriented x3 Neuro Extensive - Motor, Sensory, Reflexes: Expressive Aphasia, Other (slight weakness in left upper extremity, no facial asymmetry, word finding difficulties ). No: Tongue Deviation (L), Tongue Deviation (R) Psychiatric: Alert, Normal Affect, Normal Mood - Patient Data Lab Results Last 24 hrs: Laboratory Results - last 24 hr 06/01/18 06/01/18 Range/Units 18:04 18:04 WBC 3.78 L (4.0-11.0) K/uL RBC 3.41 L (4.30-5.90) M/uL Hgb 9.9 L (12.0-16.0) g/dL Hct 30.0 L (36.0-46.0) % MCV 88.0 (80.0-98.0) fL MCH 29.0 (27.0-32.0) pg MCHC 33.0 (31.0-37.0) g/dL RDW Std Deviation 53.4 (28.0-62.0) fl RDW Coeff of Avinash 17 H (11.0-15.0) % Plt Count 224 (150-400) K/uL MPV 9.10 (7.40-12.00) fL Neut % (Auto) 72.0 (48.0-80.0) % Lymph % (Auto) 12.4 L (16.0-40.0) % Faulk % (Auto) 9.5 (0.0-15.0) % Eos % (Auto) 5.8 (0.0-7.0) % Baso % (Auto) 0.3 (0.0-1.5) % Neut # (Auto) 2.7 (1.4-5.7) K/uL Lymph # (Auto) 0.5 L (0.6-2.4) K/uL Faulk # (Auto) 0.4 (0.0-0.8) K/uL Eos # (Auto) 0.2 (0.0-0.7) K/uL Baso # (Auto) 0.0 (0.0-0.1) K/uL Nucleated RBC % 0.0 /100WBC Nucleated RBCs # 0 K/uL INR 1.03 APTT 26.4 (18.6-31.3) SEC Result Diagrams: 06/01/18 18:04 06/01/18 18:04 Problem List Initiated/Reviewed/Updated: Yes Orders Last 24hrs: Active Orders 24 hr Category Date Time Status Patient Status [ADT] Stat ADT 06/01/18 17:52 Active Assess Neurological Status [RC] ASDIRECTED Care 06/01/18 17:01 Active Bedrest [RC] ASDIRECTED Care 06/01/18 17:01 Active Cardiac Monitoring [RC] . DIRECTED Care 06/01/18 17:01 Active EKG Documentation Completion [RC] STAT Care 06/01/18 17:01 Active Height and Weight [RC] UPON Care 06/01/18 17:01 Active Initiate Acute Stroke Protocol [RC] STAT Care 06/01/18 17:01 Active NIH Stroke Scale [RC] ASDIRECTED Care 06/01/18 17:01 Active Nursing Bedside Swallow Screen [RC] ASDIRECTED Care 06/01/18 17:01 Active Oxygen Therapy [RC] ASDIRECTED Care 06/01/18 17:01 Active Stroke Education, General [RC] Click to Edit Care 06/01/18 17:01 Active Vital Signs [RC] Q15M Care 06/01/18 17:01 Active Head wo Cont [CT] Stat Exams 06/01/18 17:01 Taken COMPREHENSIVE METABOLIC PN,CMP [CHEM] Stat Lab 06/01/18 18:04 Received TROPONIN I [CHEM] Stat Lab 06/01/18 18:04 Received TSH [CHEM] Stat Lab 06/01/18 18:04 Received Sodium Chloride 0.9% [Normal Saline] Med 06/01/18 17:01 Active 10 ml IV ASDIRECTED PRN Sodium Chloride 0.9% [Saline Flush] Med 06/01/18 17:01 Active 10 ml FLUSH ASDIRECTED PRN Sodium Chloride 0.9% [Saline Flush] Med 06/01/18 17:01 Active 2.5 ml FLUSH ASDIRECTED PRN Peripheral IV Insertion Adult [OM.PC] Stat Oth 06/01/18 17:01 Ordered Peripheral IV Insertion Adult [OM.PC] Stat Oth 06/01/18 17:01 Ordered Medication Orders Sodium Chloride (Saline Flush) 10 ml FLUSH ASDIRECTED PRN PRN Reason: Keep Vein Open Sodium Chloride (Saline Flush) 2.5 ml FLUSH ASDIRECTED PRN PRN Reason: Keep Vein Open Sodium Chloride (Normal Saline) 10 ml IV ASDIRECTED PRN PRN Reason: IV Use Assessment/Plan Comment:: 1. Admit to inpatient 2. Code status- full 3. Vitals per routine 4. I/Os per routine 5. Diet- heart healthy once she has passed bedside swallow screen 6. DVT prophylaxis with lovenox 7. CVA- subacute infarct L parietal lobe- PT/OT/ST evaluate and treat. Will allow for permissive HTN and hold atenolol. Will start aspirin and statin. Family wants full workup, so will order MRI brain w/wo, MRA neck wo, MRA brain wo, echo. Explained that these services will not be available until Monday and family voiced understanding. Will watch on telemetry. 8. Chest pain- reproducible, troponin negative- will get CXR 9. Hypokalemia- will replace and recheck in AM
[2018-06-01] MEDS ORDERED: Potassium Chloride 20 MEQ Tab.ER PO ONE (19:01)
--- NOTE | 2018-06-01 19:26 | CR ---
INDICATION: Stroke TECHNIQUE: Chest radiograph 1 view COMPARISON: None FINDINGS: Mediastinum: The mediastinum is normal in appearance. The heart silhouette is normal in size and morphology. Lung: Moderate stable pulmonary fibrosis is present with a predominance in the lung bases. No sign of pleural effusion seen. No pneumothorax is identified. Musculoskeletal: Severe diffuse osteopenia is noted. Patient status post left axillary dissection. IMPRESSION: 1. Moderate stable pulmonary fibrosis is present with a predominance in the lung bases. Dictated by Ernesto Elizabeth MD @ 06/01/2018 7:21:55 PM Dictated by: Ernesto Elizabeth MD @ 06/01/2018 19:23:56 (Electronically Signed)
[2018-06-01] MEDS ORDERED: Potassium Chloride 20 MEQ Tab.ER ONE (21:28)
[2018-06-01] MEDS: atorvaSTATin 40 MG Tab PO SCH (21:31)
[2018-06-01] MEDS: Enoxaparin 40 MG/0.4 ML Syringe SUBCUT SCH (21:32)
[2018-06-02] MEDS ORDERED: Potassium Chloride 20 MEQ Packet PO SCH (09:00)
--- NOTE | 2018-06-02 09:42 | PCM.PN ---
- General Info Date of Service: 06/02/18 Subjective Update: The patient is a 87 year old female admitted for CVA. Patient has no complaints today. She is still having trouble with word finding and word salad. Yesterday she knew her name but was not oriented to time or place. Today she is not oriented at all but is pleasant. Daughter in the room and thinks there is slight improvement. Review of medical records found that she has been diagnosed with paroxysmal Afib and was on warfarin. This was discontinued by her PCP due to frequent falls and medication non compliance. The patient would forget to take her medications and did not follow up with INR checks. Echo from 2017 showed a EF of 55-60% with Grade 2 LV diastolic filling, and aortic stenosis. Stress test fro m2017 showed no ischemia. She was started on Imdur by Dr. López for angina. She was monitored on telemetry and found to be in sinus rhythm with HR ranging from 60-80s with rare PVCs. - Review of Systems General: Reports: No Symptoms HEENT: Reports: No Symptoms Pulmonary: Reports: No Symptoms Cardiovascular: Reports: No Symptoms Gastrointestinal: Reports: No Symptoms Genitourinary: Reports: No Symptoms Musculoskeletal: Reports: No Symptoms Skin: Reports: No Symptoms Neurological: Reports: Confusion, Trouble Speaking - Patient Data Vitals - Most Recent: Last Vital Signs Temp 97.5 F 06/02/18 08:00 Pulse 78 06/02/18 08:00 Resp 16 06/02/18 08:00 BP 117/59 L 06/02/18 08:00 Pulse Ox 94 L 06/02/18 08:00 Weight - Most Recent: 50.916 kg I&O - Last 24 Hours: Intake & Output 06/01/18 06/02/18 06/02/18 22:59 06:59 14:59 Intake Total 240 Balance 240 Lab Results Last 24 Hours: Laboratory Results - last 24 hr 06/01/18 06/01/18 06/01/18 Range/Units 18:04 18:04 18:04 WBC 3.78 L (4.0-11.0) K/uL RBC 3.41 L (4.30-5.90) M/uL Hgb 9.9 L (12.0-16.0) g/dL Hct 30.0 L (36.0-46.0) % MCV 88.0 (80.0-98.0) fL MCH 29.0 (27.0-32.0) pg MCHC 33.0 (31.0-37.0) g/dL RDW Std Deviation 53.4 (28.0-62.0) fl RDW Coeff of Avinash 17 H (11.0-15.0) % Plt Count 224 (150-400) K/uL MPV 9.10 (7.40-12.00) fL Neut % (Auto) 72.0 (48.0-80.0) % Lymph % (Auto) 12.4 L (16.0-40.0) % [place] % (Auto) 9.5 (0.0-15.0) % Eos % (Auto) 5.8 (0.0-7.0) % Baso % (Auto) 0.3 (0.0-1.5) % Neut # (Auto) 2.7 (1.4-5.7) K/uL Lymph # (Auto) 0.5 L (0.6-2.4) K/uL [place] # (Auto) 0.4 (0.0-0.8) K/uL Eos # (Auto) 0.2 (0.0-0.7) K/uL Baso # (Auto) 0.0 (0.0-0.1) K/uL Nucleated RBC % 0.0 /100WBC Nucleated RBCs # 0 K/uL INR 1.03 APTT 26.4 (18.6-31.3) SEC Sodium 136 (136-145) mmol/L Potassium 3.2 L (3.5-5.1) mmol/L Chloride 98 (98-107) mmol/L Carbon Dioxide 28.6 (21.0-32.0) mmol/L BUN 26 H (7.0-18.0) mg/dL Creatinine 1.0 (0.6-1.0) mg/dL Est Cr Clr Drug Dosing 31.94 mL/min Estimated GFR (MDRD) 52.6 ml/min Glucose 101 (74-106) mg/dL Calcium 9.0 (8.5-10.1) mg/dL Total Bilirubin 0.3 (0.2-1.0) mg/dL AST 18 (15-37) IU/L ALT 16 (14-63) IU/L Alkaline Phosphatase 54 (46-116) U/L Troponin I < 0.050 (0.000-0.056) ng/mL Total Protein 7.1 (6.4-8.2) g/dL Albumin 1.5 L (3.4-5.0) g/dL Globulin 5.6 H (2.6-4.0) g/dL Albumin/Globulin Ratio 0.3 L (0.9-1.6) TSH 3rd Generation 2.87 (0.36-3.74) uIU/mL 06/02/18 06/02/18 Range/Units 05:53 05:53 WBC 3.37 L (4.0-11.0) K/uL RBC 3.14 L (4.30-5.90) M/uL Hgb 8.9 L (12.0-16.0) g/dL Hct 27.6 L (36.0-46.0) % MCV 87.9 (80.0-98.0) fL MCH 28.3 (27.0-32.0) pg MCHC 32.2 (31.0-37.0) g/dL RDW Std Deviation 52.8 (28.0-62.0) fl RDW Coeff of Avinash 17 H (11.0-15.0) % Plt Count 199 (150-400) K/uL MPV 9.20 (7.40-12.00) fL Neut % (Auto) 66.5 (48.0-80.0) % Lymph % (Auto) 14.2 L (16.0-40.0) % [place] % (Auto) 11.6 (0.0-15.0) % Eos % (Auto) 7.4 H (0.0-7.0) % Baso % (Auto) 0.3 (0.0-1.5) % Neut # (Auto) 2.2 (1.4-5.7) K/uL Lymph # (Auto) 0.5 L (0.6-2.4) K/uL [place] # (Auto) 0.4 (0.0-0.8) K/uL Eos # (Auto) 0.3 (0.0-0.7) K/uL Baso # (Auto) 0.0 (0.0-0.1) K/uL Nucleated RBC % 0.0 /100WBC Nucleated RBCs # 0 K/uL INR APTT (18.6-31.3) SEC Sodium 137 (136-145) mmol/L Potassium 3.8 (3.5-5.1) mmol/L Chloride 102 (98-107) mmol/L Carbon Dioxide 25.2 (21.0-32.0) mmol/L BUN 23 H (7.0-18.0) mg/dL Creatinine 0.9 (0.6-1.0) mg/dL Est Cr Clr Drug Dosing 35.49 mL/min Estimated GFR (MDRD) 59.4 ml/min Glucose 70 L (74-106) mg/dL Calcium 8.4 L (8.5-10.1) mg/dL Total Bilirubin (0.2-1.0) mg/dL AST (15-37) IU/L ALT (14-63) IU/L Alkaline Phosphatase (46-116) U/L Troponin I (0.000-0.056) ng/mL Total Protein (6.4-8.2) g/dL Albumin (3.4-5.0) g/dL Globulin (2.6-4.0) g/dL Albumin/Globulin Ratio (0.9-1.6) TSH 3rd Generation (0.36-3.74) uIU/mL Med Orders - Current: Current Medications Aspirin (Aspirin) 81 mg PO DAILY [facility] Atorvastatin Calcium (Lipitor) 40 mg PO BEDTIME [facility] Last Admin: 06/01/18 21:31 Dose: 40 mg Enoxaparin Sodium (Lovenox) 40 mg SUBCUT Q24H [facility] Last Admin: 06/01/18 21:32 Dose: 40 mg Folic Acid (Folic Acid) 1 mg PO DAILY [facility] Furosemide (Lasix) 40 mg PO DAILY [facility] Isosorbide Mononitrate (Imdur) 30 mg PO DAILY [facility] Levothyroxine Sodium (Synthroid) 100 mcg PO DAILY [facility] Polysaccharide Iron Complex (Ferrex 150) 150 mg PO DAILY [facility] Potassium Chloride (Klor-Con M20) 40 meq PO DAILY [facility] Sodium Chloride (Saline Flush) 10 ml FLUSH ASDIRECTED PRN PRN Reason: Keep Vein Open Sodium Chloride (Saline Flush) 2.5 ml FLUSH ASDIRECTED PRN PRN Reason: Keep Vein Open Sodium Chloride (Normal Saline) 10 ml IV ASDIRECTED PRN PRN Reason: IV Use Discontinued Medications Potassium Chloride (Klor-Con M20) 40 meq PO ONETIME ONE Stop: 06/01/18 19:02 Last Admin: 06/01/18 21:31 Dose: 40 meq Potassium Chloride (Klor-Con M20) Confirm Administered Dose 40 meq .ROUTE .STK- MED ONE Stop: 06/01/18 21:29 Last Admin: 06/01/18 21:32 Dose: Not Given Potassium Chloride (Klor-Con) 40 meq PO DAILY [facility] - Exam General: Alert, Cooperative. No: Oriented Lungs: Normal Respiratory Effort Cardiovascular: Regular Rate, Regular Rhythm, Murmurs GI/Abdominal Exam: Normal Bowel Sounds, Soft, Non-Tender, No Distention Extremities: No Pedal Edema Skin: Warm, Dry Neurological: Other (word finding difficulites, word salad, not oriented at all , difficulty following directions when testing cranial nerves, follows directions with strenthg testing, slight LUE weakness). No: Normal Speech Psy/Mental Status: Alert, Normal Affect, Normal Mood - Problem List Review Problem List Initiated/Reviewed/Updated: Yes - My Orders Last 24 Hours: My Active Orders 06/01/18 19:01 Intake and Output [RC] Q12H Vital Signs [RC] Q4H OT Evaluation and Treatment [CONS] Stat PT Evaluation and Treatment [CONS] Stat [employer] Evaluation and Treatment [CONS] Routine Ang Head wo Cont [MR] Stat Ang Neck wo Cont [MR] Stat Brain w wo Cont [MR] Stat Echo Comp wo Cont [US] Stat UA W/CHELSEY RFLX IF INDICATED [URIN] Stat Resuscitation Status Stat 06/01/18 19:15 Enoxaparin [Lovenox] 40 mg SUBCUT Q24H 06/01/18 21:00 atorvaSTATin [Lipitor] 40 mg PO BEDTIME 06/01/18 21:01 Telemetry Monitoring [Cardiac Monitoring] [RC] Q8H 06/02/18 09:00 Aspirin 81 mg PO DAILY Folic Acid 1 mg PO DAILY Furosemide [Lasix] 40 mg PO DAILY Iron Polysaccharides Complex [Ferrex 150] 150 mg PO DAILY Isosorbide Mononitrate [Imdur] 30 mg PO DAILY Levothyroxine [Synthroid] 100 mcg PO DAILY Potassium Chloride [Klor-Con M20] 40 meq PO DAILY 06/02/18 Breakfast Heart Healthy Diet [DIET] - Plan Plan:: 1. CVA- subacute infarct L parietal lobe- PT/OT/ST evaluate and treat. Will allow for permissive HTN and hold atenolol. Will start aspirin and statin. Family wants full workup, so will order MRI brain w/wo, MRA neck wo, MRA brain wo, echo. Explained that these services will not be available until Monday and family voiced understanding. Will watch on telemetry. Based on medical record review, patient has history of paroxysmal Afib but was taken off warfarin due to falls and non compliance. 2. Chest pain- resolved, has history of angina and takes imdur at home, this was restarted. 3. Hypokalemia- resolved 4. Hypothyroidism- TSH within normal limits- continue home meds
[2018-06-02] MEDS: Isosorbide Mononitrate 30 MG Tab.ER PO SCH (09:56)
[2018-06-02] MEDS: Potassium Chloride 20 MEQ Tab.ER PO SCH (09:56)
[2018-06-02] MEDS: Folic Acid 1 MG Tab PO SCH (09:56)
[2018-06-02] MEDS: Iron Polysaccharides Complex 150 MG Cap PO SCH (09:56)
[2018-06-02] MEDS: Aspirin 81 MG Tab.Chew PO SCH (09:56)
[2018-06-02] MEDS: Furosemide 40 MG Tab PO SCH (09:57)
[2018-06-02] MEDS: Levothyroxine 100 MCG Tab PO SCH (13:04)
[2018-06-02] MEDS: Enoxaparin 40 MG/0.4 ML Syringe SUBCUT SCH (18:30)
[2018-06-02] MEDS: Sodium Chloride 0.9% 1,000 ML IV SCH (18:30)
[2018-06-02] MEDS: atorvaSTATin 40 MG Tab PO SCH (20:18)
[2018-06-02] MEDS: Nitrofurantoin Monohydrate/Macrocrystalline 100 MG Cap PO SCH (20:19)
[2018-06-03] MEDS: Isosorbide Mononitrate 30 MG Tab.ER PO SCH (09:52)
[2018-06-03] MEDS: Aspirin 81 MG Tab.Chew PO SCH (09:52)
[2018-06-03] MEDS: Potassium Chloride 20 MEQ Tab.ER PO SCH (09:52)
[2018-06-03] MEDS: Furosemide 40 MG Tab PO SCH (09:52)
[2018-06-03] MEDS: Levothyroxine 100 MCG Tab PO SCH (09:53)
[2018-06-03] MEDS: Folic Acid 1 MG Tab PO SCH (09:53)
[2018-06-03] MEDS: Iron Polysaccharides Complex 150 MG Cap PO SCH (09:53)
[2018-06-03] MEDS: Nitrofurantoin Monohydrate/Macrocrystalline 100 MG Cap PO SCH ×2 (09:53→20:51)
[2018-06-03] MEDS: Sodium Chloride 0.9% 1,000 ML IV SCH (09:57)
--- NOTE | 2018-06-03 18:15 | PCM.PN ---
- General Info Date of Service: 06/03/18 - Review of Systems Systems Review Comment:: no new complaints, still having difficulty with word finding. - Patient Data Vitals - Most Recent: Last Vital Signs Temp 36.3 C 06/03/18 16:00 Pulse 76 06/03/18 16:00 Resp 16 06/03/18 16:00 BP 101/57 L 06/03/18 16:00 Pulse Ox 97 06/03/18 16:00 Weight - Most Recent: 50.916 kg I&O - Last 24 Hours: Intake & Output 06/03/18 06/03/18 06/03/18 06:59 14:59 22:59 Intake Total 1011 1690 Output Total 350 225 Balance 661 1465 Lab Results Last 24 Hours: Laboratory Results - last 24 hr 06/03/18 06/03/18 Range/Units 06:28 06:28 WBC 3.60 L (4.0-11.0) K/uL RBC 2.90 L (4.30-5.90) M/uL Hgb 8.2 L (12.0-16.0) g/dL Hct 25.6 L (36.0-46.0) % MCV 88.3 (80.0-98.0) fL MCH 28.3 (27.0-32.0) pg MCHC 32.0 (31.0-37.0) g/dL RDW Std Deviation 53.6 (28.0-62.0) fl RDW Coeff of Avinash 17 H (11.0-15.0) % Plt Count 185 (150-400) K/uL MPV 9.00 (7.40-12.00) fL Neut % (Auto) 64.9 (48.0-80.0) % Lymph % (Auto) 13.3 L (16.0-40.0) % [place] % (Auto) 13.1 (0.0-15.0) % Eos % (Auto) 8.1 H (0.0-7.0) % Baso % (Auto) 0.6 (0.0-1.5) % Neut # (Auto) 2.3 (1.4-5.7) K/uL Lymph # (Auto) 0.5 L (0.6-2.4) K/uL [place] # (Auto) 0.5 (0.0-0.8) K/uL Eos # (Auto) 0.3 (0.0-0.7) K/uL Baso # (Auto) 0.0 (0.0-0.1) K/uL Nucleated RBC % 0.0 /100WBC Nucleated RBCs # 0 K/uL Sodium 138 (136-145) mmol/L Potassium 3.7 (3.5-5.1) mmol/L Chloride 105 (98-107) mmol/L Carbon Dioxide 26.4 (21.0-32.0) mmol/L BUN 22 H (7.0-18.0) mg/dL Creatinine 0.9 (0.6-1.0) mg/dL Est Cr Clr Drug Dosing 35.49 mL/min Estimated GFR (MDRD) 59.4 ml/min Glucose 75 (74-106) mg/dL Calcium 8.0 L (8.5-10.1) mg/dL Med Orders - Current: Current Medications Aspirin (Aspirin) 81 mg PO DAILY [facility] Last Admin: 06/03/18 09:52 Dose: 81 mg Atorvastatin Calcium (Lipitor) 40 mg PO BEDTIME [facility] Last Admin: 06/02/18 20:18 Dose: 40 mg Enoxaparin Sodium (Lovenox) 40 mg SUBCUT Q24H [facility] Last Admin: 06/02/18 18:30 Dose: 40 mg Folic Acid (Folic Acid) 1 mg PO DAILY [facility] Last Admin: 06/03/18 09:53 Dose: 1 mg Furosemide (Lasix) 40 mg PO DAILY [facility] Last Admin: 06/03/18 09:52 Dose: 40 mg Sodium Chloride (Normal Saline) 1,000 mls @ 75 mls/hr IV ASDIRECTED [facility] Last Admin: 06/03/18 09:57 Dose: 75 mls/hr Isosorbide Mononitrate (Imdur) 30 mg PO DAILY [facility] Last Admin: 06/03/18 09:52 Dose: 30 mg Levothyroxine Sodium (Synthroid) 100 mcg PO DAILY [facility] Last Admin: 06/03/18 09:53 Dose: 100 mcg Nitrofurantoin Macrocrystals (Macrobid) 100 mg PO BID [facility] Last Admin: 06/03/18 09:53 Dose: 100 mg Polysaccharide Iron Complex (Ferrex 150) 150 mg PO DAILY [facility] Last Admin: 06/03/18 09:53 Dose: 150 mg Potassium Chloride (Klor-Con M20) 40 meq PO DAILY [facility] Last Admin: 06/03/18 09:52 Dose: 40 meq Sodium Chloride (Saline Flush) 10 ml FLUSH ASDIRECTED PRN PRN Reason: Keep Vein Open Sodium Chloride (Saline Flush) 2.5 ml FLUSH ASDIRECTED PRN PRN Reason: Keep Vein Open Sodium Chloride (Normal Saline) 10 ml IV ASDIRECTED PRN PRN Reason: IV Use Discontinued Medications Potassium Chloride (Klor-Con M20) 40 meq PO ONETIME ONE Stop: 06/01/18 19:02 Last Admin: 06/01/18 21:31 Dose: 40 meq Potassium Chloride (Klor-Con M20) Confirm Administered Dose 40 meq .ROUTE .STK- MED ONE Stop: 06/01/18 21:29 Last Admin: 06/01/18 21:32 Dose: Not Given Potassium Chloride (Klor-Con) 40 meq PO DAILY [facility] - Exam General: Cooperative, No Acute Distress Lungs: Clear to Auscultation, Normal Respiratory Effort Cardiovascular: Regular Rate, Regular Rhythm GI/Abdominal Exam: Normal Bowel Sounds, Soft, Non-Tender Extremities: Non-Tender, No Pedal Edema Skin: Warm, Dry, Intact Neurological: No New Focal Deficit. No: Normal Speech (unable to name objects but able to answer yes and no questions and speak in simple sentences) - Problem List Review Problem List Initiated/Reviewed/Updated: Yes - My Orders Last 24 Hours: My Active Orders 06/03/18 15:51 May Shower [RC] ASDIRECTED - Plan Plan:: 1. CVA- subacute infarct L parietal lobe- PT/OT/ST evaluate and treat. MRI of brain ordered. continue ASA and statin 2. Chest pain- resolved, has history of angina and takes imdur at home, this was restarted. 3. Hypokalemia- resolved 4. Hypothyroidism- TSH within normal limits- continue home meds
[2018-06-03] MEDS: Enoxaparin 40 MG/0.4 ML Syringe SUBCUT SCH (18:57)
[2018-06-03] MEDS: atorvaSTATin 40 MG Tab PO SCH (20:51)
--- NOTE | 2018-06-04 07:30 | PCM.PN ---
- General Info Date of Service: 06/04/18 - Review of Systems Systems Review Comment:: able to say yes and no to questions but not able to name objects - Patient Data Vitals - Most Recent: Last Vital Signs Temp 36.6 C 06/04/18 04:00 Pulse 82 06/04/18 04:00 Resp 16 06/04/18 04:00 BP 125/73 06/04/18 04:00 Pulse Ox 93 L 06/04/18 04:00 Weight - Most Recent: 53.977 kg I&O - Last 24 Hours: Intake & Output 06/03/18 06/04/18 06/04/18 22:59 06:59 14:59 Intake Total 1690 790 Output Total 225 500 Balance 1465 290 Med Orders - Current: Current Medications Aspirin (Aspirin) 81 mg PO DAILY [facility] Last Admin: 06/03/18 09:52 Dose: 81 mg Atorvastatin Calcium (Lipitor) 40 mg PO BEDTIME [facility] Last Admin: 06/03/18 20:51 Dose: 40 mg Enoxaparin Sodium (Lovenox) 40 mg SUBCUT Q24H [facility] Last Admin: 06/03/18 18:57 Dose: 40 mg Folic Acid (Folic Acid) 1 mg PO DAILY [facility] Last Admin: 06/03/18 09:53 Dose: 1 mg Furosemide (Lasix) 40 mg PO DAILY [facility] Last Admin: 06/03/18 09:52 Dose: 40 mg Isosorbide Mononitrate (Imdur) 30 mg PO DAILY [facility] Last Admin: 06/03/18 09:52 Dose: 30 mg Levothyroxine Sodium (Synthroid) 100 mcg PO DAILY [facility] Last Admin: 06/03/18 09:53 Dose: 100 mcg Nitrofurantoin Macrocrystals (Macrobid) 100 mg PO BID [facility] Last Admin: 06/03/18 20:51 Dose: 100 mg Polysaccharide Iron Complex (Ferrex 150) 150 mg PO DAILY [facility] Last Admin: 06/03/18 09:53 Dose: 150 mg Potassium Chloride (Klor-Con M20) 40 meq PO DAILY [facility] Last Admin: 06/03/18 09:52 Dose: 40 meq Sodium Chloride (Saline Flush) 10 ml FLUSH ASDIRECTED PRN PRN Reason: Keep Vein Open Sodium Chloride (Saline Flush) 2.5 ml FLUSH ASDIRECTED PRN PRN Reason: Keep Vein Open Sodium Chloride (Normal Saline) 10 ml IV ASDIRECTED PRN PRN Reason: IV Use Discontinued Medications Sodium Chloride (Normal Saline) 1,000 mls @ 75 mls/hr IV ASDIRECTED [facility] Last Admin: 06/03/18 09:57 Dose: 75 mls/hr Potassium Chloride (Klor-Con M20) 40 meq PO ONETIME ONE Stop: 06/01/18 19:02 Last Admin: 06/01/18 21:31 Dose: 40 meq Potassium Chloride (Klor-Con M20) Confirm Administered Dose 40 meq .ROUTE .STK- MED ONE Stop: 06/01/18 21:29 Last Admin: 06/01/18 21:32 Dose: Not Given Potassium Chloride (Klor-Con) 40 meq PO DAILY [facility] - Exam General: Alert, Oriented Lungs: Clear to Auscultation, Normal Respiratory Effort Cardiovascular: Regular Rate, Regular Rhythm GI/Abdominal Exam: Normal Bowel Sounds, Soft, Non-Tender Extremities: Non-Tender, No Pedal Edema Skin: Warm, Dry, Intact Neurological: No New Focal Deficit - Problem List Review Problem List Initiated/Reviewed/Updated: Yes - My Orders Last 24 Hours: My Active Orders 06/03/18 15:51 May Shower [RC] ASDIRECTED - Plan Plan:: 87 yo female who presented with aphasia and found to have subacute infact of left parietal lobe on CT scan. Plan for today is to continue therapy with PT/OT /ST, MRI of brain and neck ordered will continue ASA and statin. Patient has a history of atrial fib but her coumadin was discontinued by PCP due to fall risk.
[2018-06-04] MEDS: Levothyroxine 100 MCG Tab PO SCH (09:24)
[2018-06-04] MEDS: Nitrofurantoin Monohydrate/Macrocrystalline 100 MG Cap PO SCH ×2 (09:24→21:29)
[2018-06-04] MEDS: Isosorbide Mononitrate 30 MG Tab.ER PO SCH (09:24)
[2018-06-04] MEDS: Furosemide 40 MG Tab PO SCH (09:25)
[2018-06-04] MEDS: Aspirin 81 MG Tab.Chew PO SCH (09:25)
[2018-06-04] MEDS: Iron Polysaccharides Complex 150 MG Cap PO SCH (09:25)
[2018-06-04] MEDS: Potassium Chloride 20 MEQ Tab.ER PO SCH (09:25)
[2018-06-04] MEDS: Folic Acid 1 MG Tab PO SCH (09:25)
--- NOTE | 2018-06-04 12:46 | MR ---
EXAMINATION: MR of the head without contrast. MRA head without contrast. TECHNIQUE: Multiplanar multisequence imaging of the head without intravenous contrast. Diffusion weighted sequences were performed. [id number] imaging obtained through the head without contrast. MIP reconstructions obtained. Moderate motion artifact on multiple sequences. HISTORY: CVA. FINDINGS: MRI brain: There is a moderate area of increased diffusion restriction within the left parietal-occipital region with increased FLAIR signal. There are also a few punctate areas of cortical diffusion restriction within the left frontal region. There is moderate severe generalized atrophy with symmetric ventricular prominence. Mild periventricular white matter FLAIR signal abnormalities identified. Ventricular system is of normal size and configuration without hydrocephalus. Brainstem and cerebellum are without hemorrhage, mass, edema, gliosis or atrophy. The carotid and basilar artery flow voids are intact. Venous sinuses are patent. The otomastoid airspaces are clear. No internal auditory canal or cerebellopontine angle masses. Paranasal sinuses are clear. Craniocervical junction is unremarkable. MRA head: Mild atheromatous narrowing of the distal internal carotid arteries, left greater than right. The basilar artery appears normal. The middle, anterior, and posterior cerebral arteries appear grossly patent. There is a mild paucity of vasculature within the region of the left parietal occipital infarct. IMPRESSION: 1. Moderate-sized left parietal occipital ischemic infarct. 2. There are a few small the trachea left frontal cortical infarcts also noted. 3. Generalized atrophy and small vessel ischemic changes are noted.
--- NOTE | 2018-06-04 12:51 | CT ---
EXAM DATE: 06/01/18 PATIENT'S AGE: 87 Patient: KATHI ELIZONDO Facility: [facility] : 1930 Study: CT-Head STROKE PROTOCOL [id number]/[id number] 5:32:00 PM Ordering Physician: BLANE Final Report: INDICATION: CONFUSION CT HEAD WITHOUT CONTRAST TECHNIQUE: Multiple axial CT images were performed through the head without intravenous contrast administration. COMPARISON: No previous studies are currently available for comparison. FINDINGS: No acute intracranial hemorrhage is identified. No extra-axial collections are evident and there is no midline shift. There is mild diffuse age -related brain atrophy. Ventricular size and configuration are within normal limits for the patient`s age. There is a small to moderate-sized area of abnormal hypodensity in the left parietal lobe consistent with a subacute infarct. Mg-white differentiation elsewhere is within normal limits. There is patchy hypodensity in the periventricular white matter, a nonspecific finding which most likely reflects chronic small vessel ischemic change. A tiny chronic right basal ganglia lacunar is seen. Intracranial atherosclerotic vascular calcifications are noted. Osseous structures are within normal limits and no fractures are seen. Included portions of the paranasal sinuses and mastoid air cells are normally aerated. IMPRESSION: 1. Small to moderate-sized subacute infarct in the left parietal lobe. No intracranial hemorrhage identified. 2. Age-related brain atrophy, white matter hypodensity consistent with chronic small vessel ischemic change, and intracranial atherosclerotic vascular calcifications. Results were called to Dr. Valdez at 5:38 p.m. on 06/01/2018. ANTHONY ENCINAS MD [employer] Dictated by Milad Encinas MD @ 06/01/2018 5:40:20 PM Dictated by: Milad Encinas MD @ 06/01/2018 17:41:05 Signed by: Milad Encinas MD @06/01/2018 5:41:05 PM (Electronic Signature) Report Signed by Proxy. [facility]
[2018-06-04] MEDS: Enoxaparin 40 MG/0.4 ML Syringe SUBCUT SCH ×2 (18:25→18:41)
[2018-06-04] MEDS ORDERED: Potassium Chloride 20 MEQ Tab.ER PO ONE (19:21)
[2018-06-04] MEDS: Atenolol 50 MG Tab PO SCH ×2 (19:47→20:52)
[2018-06-04] MEDS ORDERED: Magnesium Sulfate/Water 2 GM in Premix Bag 1 BAG IV ONE (20:04)
--- NOTE | 2018-06-04 20:10 | PCM.SN ---
- Free Text/Narrative Note: Rapid response was called on patient due to SVT that was sustained for around three minutes. I was called and adenosine was ordered but patient converted to normal sinus before any medications were given. Patient has aphasia due to stroke so it is difficulty to get history from patient but when I asked her if she has chest pain she responded from time to time. She was given 40mg of potassium and IV magnesium. She was transfered to the ICU. EKG showed no ST segment changes. Troponin was mildly elevated at 0.084. Serial troponins were ordered. I spoke with eICU and they will follow. The case was discussed with Dr. Quintanilla at handoff.
[2018-06-04] MEDS: atorvaSTATin 40 MG Tab PO SCH (21:29)
[2018-06-05] MEDS ORDERED: Adenosine 6 MG/2 ML SDV IVPUSH ONE ×2 (06:26→16:54)
--- NOTE | 2018-06-05 06:56 | PCM.PN ---
- General Info Date of Service: 06/05/18 Admission Dx/Problem (Free Text): Admission Diagnosis/Problem Admission Diagnosis/Problem CVA, Cerebrovascular accident Subjective Update: The patient is an 87-year-old lady who had been admitted originally on June 01, 2018 secondary to CVA. MRI obtained at that time showed a moderate-sized left parietal occipital ischemic infarct. The patient had been referred to the intensive care unit secondary to sustained SVT. The patient was then sustained SVT on June 04, 2018 and a rapid response was called. The patient also had an episode of sustained SVT this morning and had been given a single dose of adenosine by eICU. The patient is currently in normal sinus rhythm. The patient also is awake but not alert to place or time and therefore her history is not reliable. Family at bedside. The patient has denied any pain. She says she she feels very good. Functional Status: Reports: Pain Controlled - Review of Systems General: Reports: No Symptoms HEENT: Reports: No Symptoms Pulmonary: Reports: No Symptoms Cardiovascular: Reports: No Symptoms Gastrointestinal: Reports: No Symptoms Genitourinary: Reports: No Symptoms Musculoskeletal: Reports: No Symptoms Skin: Reports: No Symptoms Neurological: Reports: No Symptoms Psychiatric: Reports: No Symptoms Systems Review Comment:: Patient with mild baseline dementia. - Patient Data Vitals - Most Recent: Last Vital Signs Temp 37 C 06/05/18 04:00 Pulse 88 06/04/18 20:52 Resp 21 H 06/05/18 06:00 BP 98/46 L 06/05/18 06:00 Pulse Ox 97 06/05/18 06:00 Weight - Most Recent: 51.8 kg I&O - Last 24 Hours: Intake & Output 06/04/18 06/04/18 06/05/18 14:59 22:59 06:59 Intake Total 550 200 Output Total 630 Balance -80 200 Lab Results Last 24 Hours: Laboratory Results - last 24 hr 06/04/18 06/05/18 Range/Units 19:14 00:55 Magnesium 1.5 L (1.8-2.4) mg/dL Troponin I 0.084 H* 0.068 H* (0.000-0.056) ng/mL Artis Results Last 24 Hours: Microbiology 06/02/18 12:50 Urine Culture - Final Urine, Clean Catch MIXED KYLEE >100,000 CFU/ML Med Orders - Current: Current Medications Aspirin (Aspirin) 81 mg PO DAILY [facility] Last Admin: 06/04/18 09:25 Dose: 81 mg Atenolol (Tenormin) 50 mg PO BID [facility] Last Admin: 06/04/18 20:52 Dose: Not Given Atorvastatin Calcium (Lipitor) 40 mg PO BEDTIME [facility] Last Admin: 06/04/18 21:29 Dose: 40 mg Enoxaparin Sodium (Lovenox) 40 mg SUBCUT Q24H [facility] Last Admin: 06/04/18 18:41 Dose: 40 mg Folic Acid (Folic Acid) 1 mg PO DAILY [facility] Last Admin: 06/04/18 09:25 Dose: 1 mg Furosemide (Lasix) 40 mg PO DAILY [facility] Last Admin: 06/04/18 09:25 Dose: 40 mg Isosorbide Mononitrate (Imdur) 30 mg PO DAILY [facility] Last Admin: 06/04/18 09:24 Dose: 30 mg Levothyroxine Sodium (Synthroid) 100 mcg PO DAILY [facility] Last Admin: 06/04/18 09:24 Dose: 100 mcg Nitrofurantoin Macrocrystals (Macrobid) 100 mg PO BID [facility] Last Admin: 06/04/18 21:29 Dose: 100 mg Polysaccharide Iron Complex (Ferrex 150) 150 mg PO DAILY [facility] Last Admin: 06/04/18 09:25 Dose: 150 mg Potassium Chloride (Klor-Con M20) 40 meq PO DAILY [facility] Last Admin: 06/04/18 09:25 Dose: 40 meq Sodium Chloride (Saline Flush) 10 ml FLUSH ASDIRECTED PRN PRN Reason: Keep Vein Open Sodium Chloride (Saline Flush) 2.5 ml FLUSH ASDIRECTED PRN PRN Reason: Keep Vein Open Sodium Chloride (Normal Saline) 10 ml IV ASDIRECTED PRN PRN Reason: IV Use Discontinued Medications Adenosine (Adenocard) 6 mg IVPUSH NOW ONE Stop: 06/05/18 06:27 Sodium Chloride (Normal Saline) 1,000 mls @ 75 mls/hr IV ASDIRECTED [facility] Last Admin: 06/03/18 09:57 Dose: 75 mls/hr Magnesium Sulfate 2 gm/ Premix 50 mls @ 50 mls/hr IV ONETIME ONE Stop: 06/04/18 21:03 Last Admin: 06/04/18 21:30 Dose: 50 mls/hr Potassium Chloride (Klor-Con M20) 40 meq PO ONETIME ONE Stop: 06/01/18 19:02 Last Admin: 06/01/18 21:31 Dose: 40 meq Potassium Chloride (Klor-Con M20) Confirm Administered Dose 40 meq .ROUTE .STK- MED ONE Stop: 06/01/18 21:29 Last Admin: 06/01/18 21:32 Dose: Not Given Potassium Chloride (Klor-Con) 40 meq PO DAILY [facility] Potassium Chloride (Klor-Con M20) 40 meq PO ONETIME ONE Stop: 06/04/18 19:22 Last Admin: 06/04/18 19:47 Dose: 40 meq - Exam Quality Assessment: No: Supplemental Oxygen General: Alert, Cooperative, No Acute Distress. No: Oriented HEENT: Pupils Equal, Pupils Reactive Neck: Supple, Trachea Midline Lungs: Clear to Auscultation, Normal Respiratory Effort Cardiovascular: Regular Rate, Regular Rhythm. No: Murmurs GI/Abdominal Exam: Normal Bowel Sounds, Soft, Non-Tender, No Distention (Female) Exam: Deferred Back Exam: Normal Inspection (Kyphosis) Extremities: Normal Inspection, No Pedal Edema Skin: Warm, Dry, Intact Neurological: No New Focal Deficit Psy/Mental Status: Alert - Problem List & Annotations (1) Paroxysmal SVT (supraventricular tachycardia) SNOMED Code(s): 13477427 Code(s): I47.1 - SUPRAVENTRICULAR TACHYCARDIA Status: Chronic Priority: High Current Visit: Yes (2) CVA (cerebral vascular accident) SNOMED Code(s): 075206549 Code(s): I63.9 - CEREBRAL INFARCTION, UNSPECIFIED Status: Acute Priority : High Current Visit: Yes Qualifiers: CVA mechanism: unspecified Qualified Code(s): I63.9 - Cerebral infarction, unspecified (3) Falls frequently SNOMED Code(s): 671160873 Code(s): R29.6 - REPEATED FALLS Status: Chronic Priority: High Current Visit: Yes (4) Dementia SNOMED Code(s): 70203299 Code(s): F03.90 - UNSPECIFIED DEMENTIA WITHOUT BEHAVIORAL DISTURBANCE Status: Chronic Priority: High Current Visit: Yes Qualifiers: Dementia type: vascular dementia Dementia behavioral disturbance: without behavioral disturbance Qualified Code(s): F01.50 - Vascular dementia without behavioral disturbance - Problem List Review Problem List Initiated/Reviewed/Updated: Yes - Plan Plan:: The patient is an 87-year-old lady who had been admitted initially for subacute parietal stroke. The patient also has a history of anticoagulation and this was discontinued secondary to her frequent falls. She had been anticoagulated secondary to atrial fibrillation. The patient is currently in ICU on monitoring secondary to paroxysmal supraventricular tachycardia. I had a discussion with the patient's daughter and son-in-law with regards to her living situation and the patient is currently at home with her elderly . He is in poor health as well. As a result of this I do not think that the patient is safe at home and I had a discussion with the family with regards to [facility] [place]. The patient also had a run of sustained supraventricular tachycardia which was evaluated by eICU physician and had recommended single dose of adenosine which was given and stop the SVT. The patient right now is still in a full CODE STATUS although her daughter says that she has advanced directives and location is unknown. The patient may have her resuscitation code changed later. 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 Recurrent EGFR is 35 mL/m. The patient will be continued on her diet as tolerated. She'll be kept on telemetry intensive care unit. We'll follow with eICU. Depending on the patient's condition over the next few days she may be appropriate for discharge to [facility] [place] in 1-2 days.
[2018-06-05] MEDS: Isosorbide Mononitrate 30 MG Tab.ER PO SCH (08:46)
[2018-06-05] MEDS: Atenolol 50 MG Tab PO SCH ×2 (08:47→20:15)
[2018-06-05] MEDS: Levothyroxine 100 MCG Tab PO SCH (08:48)
[2018-06-05] MEDS: Nitrofurantoin Monohydrate/Macrocrystalline 100 MG Cap PO SCH ×2 (08:48→20:15)
[2018-06-05] MEDS: Potassium Chloride 20 MEQ Tab.ER PO SCH (08:48)
[2018-06-05] MEDS: Aspirin 81 MG Tab.Chew PO SCH (08:49)
[2018-06-05] MEDS: Furosemide 40 MG Tab PO SCH (08:49)
[2018-06-05] MEDS: Iron Polysaccharides Complex 150 MG Cap PO SCH (08:49)
[2018-06-05] MEDS: Folic Acid 1 MG Tab PO SCH (08:49)
[2018-06-05] MEDS ORDERED: Sodium Chloride 0.9% 500 ML IV SCH (14:45)
[2018-06-05] MEDS: Metoprolol Tartrate 5 MG/5 ML SDV IVPUSH ONE ×2 (14:47→15:11)
[2018-06-05] MEDS: Digoxin 500 MCG/2 ML Amp IVPUSH SCH ×3 (15:36→19:51)
[2018-06-05] MEDS: Sodium Chloride 0.9% 1,000 ML IV SCH (18:00)
--- NOTE | 2018-06-05 18:13 | PCM.SN ---
- Free Text/Narrative Note: The patient is an 87-year-old lady who had been in intensive care since yesterday evening due to supraventricular tachycardia. The patient had an episode of sustained V. tach in which eICU had ordered IV adenosine and this helped to slow her heart rate. The patient also has been followed by cardiology by telemetry. It 1417 the patient went into sustained SVT and she had been dosed with metoprolol, digoxin by cardiology. The patient is currently pending swallow study secondary to her stroke and not being able to handle some medications. She is currently nothing by mouth. EICU had recommended that the patient be transferred out secondary to her SVT. I had a long discussion with the patient's daughter and regarding this. The patient's family do not want her transferred. Physician was called to examine patient and she is awake and alert although confused but she is otherwise hemodynamically stable with the exception of her pulse rate being around 140. EKG obtained did show SVT. I ordered 6 mg of adenosine and this was given to her IV push at 1752 which had broken SVT and the patient had remained in normal sinus rhythm with occasional PVCs. EKG was obtained post adenosine administration. Due to the patient's confusion and baseline dementia the family has considered the patient to be in a DO NOT INTUBATE/DO NOT RESUSCITATE category although this can be changed as necessary. There are advanced directives in place.
[2018-06-05] MEDS ORDERED: Metoprolol Tartrate 5 MG/5 ML SDV IVPUSH PRN (18:54)
[2018-06-05] MEDS: atorvaSTATin 40 MG Tab PO SCH (20:15)
[2018-06-05] MEDS: Heparin Sodium 5,000 Units/ML Vial SUBCUT SCH (21:00)
[2018-06-06 05:57] LABS: CHLORIDE,CL 106 mmol/L (98-107); SODIUM,NA 139 mmol/L (136-145)
[2018-06-06] MEDS: Heparin Sodium 5,000 Units/ML Vial SUBCUT SCH ×3 (06:19→21:11)
--- NOTE | 2018-06-06 06:51 | PCM.PN ---
- General Info Date of Service: 06/06/18 Admission Dx/Problem (Free Text): Admission Diagnosis/Problem Admission Diagnosis/Problem CVA, Cerebrovascular accident Subjective Update: The patient says that she is doing much better today. She does not remember what happened yesterday. She has denied any pain. Functional Status: Reports: Pain Controlled - Review of Systems General: Reports: No Symptoms HEENT: Reports: No Symptoms Pulmonary: Reports: No Symptoms Cardiovascular: Reports: No Symptoms Gastrointestinal: Reports: No Symptoms Genitourinary: Reports: No Symptoms Musculoskeletal: Reports: No Symptoms Skin: Reports: No Symptoms Neurological: Reports: No Symptoms Psychiatric: Reports: No Symptoms Systems Review Comment:: Review of systems is suspect secondary to the patient's dementia. - Patient Data Vitals - Most Recent: Last Vital Signs Temp 36.7 C 06/06/18 04:00 Pulse 77 06/05/18 20:15 Resp 18 06/06/18 06:00 BP 120/45 L 06/06/18 06:00 Pulse Ox 100 06/06/18 06:00 Weight - Most Recent: 51.8 kg I&O - Last 24 Hours: Intake & Output 06/05/18 06/05/18 06/06/18 14:59 22:59 06:59 Intake Total 270 Output Total 525 450 Balance -255 -450 Lab Results Last 24 Hours: Laboratory Results - last 24 hr 06/05/18 06/05/18 06/05/18 Range/Units 06:40 06:40 07:00 WBC 5.57 (4.0-11.0) K/uL RBC 3.05 L (4.30-5.90) M/uL Hgb 8.8 L (12.0-16.0) g/dL Hct 26.9 L (36.0-46.0) % MCV 88.2 (80.0-98.0) fL MCH 28.9 (27.0-32.0) pg MCHC 32.7 (31.0-37.0) g/dL RDW Std Deviation 54.4 (28.0-62.0) fl RDW Coeff of Avinash 17 H (11.0-15.0) % Plt Count 186 (150-400) K/uL MPV 9.30 (7.40-12.00) fL Neut % (Auto) 78.8 (48.0-80.0) % Lymph % (Auto) 5.0 L (16.0-40.0) % Duval % (Auto) 6.1 (0.0-15.0) % Eos % (Auto) 9.7 H (0.0-7.0) % Baso % (Auto) 0.4 (0.0-1.5) % Neut # (Auto) 4.4 (1.4-5.7) K/uL Lymph # (Auto) 0.3 L (0.6-2.4) K/uL Duval # (Auto) 0.3 (0.0-0.8) K/uL Eos # (Auto) 0.5 (0.0-0.7) K/uL Baso # (Auto) 0.0 (0.0-0.1) K/uL Nucleated RBC % 0.0 /100WBC Nucleated RBCs # 0 K/uL Sodium 136 (136-145) mmol/L Potassium 4.3 (3.5-5.1) mmol/L Chloride 104 (98-107) mmol/L Carbon Dioxide 26.1 (21.0-32.0) mmol/L BUN 16 (7.0-18.0) mg/dL Creatinine 0.9 (0.6-1.0) mg/dL Est Cr Clr Drug Dosing 35.49 mL/min Estimated GFR (MDRD) 59.4 ml/min Glucose 85 (74-106) mg/dL Calcium 8.4 L (8.5-10.1) mg/dL Phosphorus (2.6-4.7) mg/dL Magnesium (1.8-2.4) mg/dL Troponin I 0.059 H* (0.000-0.056) ng/mL Triglycerides (0-200) mg/dL Cholesterol (50-200) mg/dL LDL Cholesterol, Calc (60-180) mg/dL VLDL Cholesterol (5-55) mg/dL HDL Cholesterol (40-60) mg/dL Cholesterol/HDL Ratio (3.3-6.0) Urine Color Urine Appearance Urine pH (5.0-8.0) Ur Specific Waldron (1.001-1.035) Urine Protein (NEGATIVE) mg/dL Urine Glucose (UA) (NEGATIVE) mg/dL Urine Ketones (NEGATIVE) mg/dL Urine Occult Blood (NEGATIVE) Urine Nitrite (NEGATIVE) Urine Bilirubin (NEGATIVE) Urine Urobilinogen (<2.0) EU/dL Ur Leukocyte Esterase (NEGATIVE) Urine RBC (0-2/HPF) Urine WBC (0-5/HPF) Ur Epithelial Cells (NONE-FEW) Urine Bacteria (NEGATIVE) 06/05/18 06/05/18 06/05/18 Range/Units 12:59 17:05 17:12 WBC (4.0-11.0) K/uL RBC (4.30-5.90) M/uL Hgb (12.0-16.0) g/dL Hct (36.0-46.0) % MCV (80.0-98.0) fL MCH (27.0-32.0) pg MCHC (31.0-37.0) g/dL RDW Std Deviation (28.0-62.0) fl RDW Coeff of Avinash (11.0-15.0) % Plt Count (150-400) K/uL MPV (7.40-12.00) fL Neut % (Auto) (48.0-80.0) % Lymph % (Auto) (16.0-40.0) % Duval % (Auto) (0.0-15.0) % Eos % (Auto) (0.0-7.0) % Baso % (Auto) (0.0-1.5) % Neut # (Auto) (1.4-5.7) K/uL Lymph # (Auto) (0.6-2.4) K/uL Duval # (Auto) (0.0-0.8) K/uL Eos # (Auto) (0.0-0.7) K/uL Baso # (Auto) (0.0-0.1) K/uL Nucleated RBC % /100WBC Nucleated RBCs # K/uL Sodium 136 (136-145) mmol/L Potassium 4.5 (3.5-5.1) mmol/L Chloride 103 (98-107) mmol/L Carbon Dioxide 24.8 (21.0-32.0) mmol/L BUN 16 (7.0-18.0) mg/dL Creatinine 0.9 (0.6-1.0) mg/dL Est Cr Clr Drug Dosing 35.49 mL/min Estimated GFR (MDRD) 59.4 ml/min Glucose 89 (74-106) mg/dL Calcium 8.4 L (8.5-10.1) mg/dL Phosphorus 3.0 (2.6-4.7) mg/dL Magnesium 2.0 (1.8-2.4) mg/dL Troponin I < 0.050 (0.000-0.056) ng/mL Triglycerides (0-200) mg/dL Cholesterol (50-200) mg/dL LDL Cholesterol, Calc (60-180) mg/dL VLDL Cholesterol (5-55) mg/dL HDL Cholesterol (40-60) mg/dL Cholesterol/HDL Ratio (3.3-6.0) Urine Color YELLOW Urine Appearance CLEAR Urine pH 7.0 (5.0-8.0) Ur Specific Waldron 1.025 (1.001-1.035) Urine Protein >=300 H (NEGATIVE) mg/dL Urine Glucose (UA) NEGATIVE (NEGATIVE) mg/dL Urine Ketones NEGATIVE (NEGATIVE) mg/dL Urine Occult Blood SMALL H (NEGATIVE) Urine Nitrite NEGATIVE (NEGATIVE) Urine Bilirubin NEGATIVE (NEGATIVE) Urine Urobilinogen 0.2 (<2.0) EU/dL Ur Leukocyte Esterase NEGATIVE (NEGATIVE) Urine RBC 1-2 (0-2/HPF) Urine WBC 0-1 (0-5/HPF) Ur Epithelial Cells RARE (NONE-FEW) Urine Bacteria RARE (NEGATIVE) 06/06/18 06/06/18 Range/Units 05:20 05:20 WBC 3.98 L (4.0-11.0) K/uL RBC 3.06 L (4.30-5.90) M/uL Hgb 8.7 L (12.0-16.0) g/dL Hct 27.5 L (36.0-46.0) % MCV 89.9 (80.0-98.0) fL MCH 28.4 (27.0-32.0) pg MCHC 31.6 (31.0-37.0) g/dL RDW Std Deviation 55.0 (28.0-62.0) fl RDW Coeff of Avinash 17 H (11.0-15.0) % Plt Count 165 (150-400) K/uL MPV 9.00 (7.40-12.00) fL Neut % (Auto) 67.2 (48.0-80.0) % Lymph % (Auto) 7.3 L (16.0-40.0) % Duval % (Auto) 11.6 (0.0-15.0) % Eos % (Auto) 13.6 H (0.0-7.0) % Baso % (Auto) 0.3 (0.0-1.5) % Neut # (Auto) 2.7 (1.4-5.7) K/uL Lymph # (Auto) 0.3 L (0.6-2.4) K/uL Duval # (Auto) 0.5 (0.0-0.8) K/uL Eos # (Auto) 0.5 (0.0-0.7) K/uL Baso # (Auto) 0.0 (0.0-0.1) K/uL Nucleated RBC % 0.0 /100WBC Nucleated RBCs # 0 K/uL Sodium 139 (136-145) mmol/L Potassium 3.9 (3.5-5.1) mmol/L Chloride 106 (98-107) mmol/L Carbon Dioxide 24.4 (21.0-32.0) mmol/L BUN 15 (7.0-18.0) mg/dL Creatinine 0.8 (0.6-1.0) mg/dL Est Cr Clr Drug Dosing 39.92 mL/min Estimated GFR (MDRD) > 60.0 ml/min Glucose 68 L (74-106) mg/dL Calcium 8.1 L (8.5-10.1) mg/dL Phosphorus (2.6-4.7) mg/dL Magnesium (1.8-2.4) mg/dL Troponin I (0.000-0.056) ng/mL Triglycerides 119 (0-200) mg/dL Cholesterol 183 (50-200) mg/dL LDL Cholesterol, Calc 122 (60-180) mg/dL VLDL Cholesterol 23 (5-55) mg/dL HDL Cholesterol 37 L (40-60) mg/dL Cholesterol/HDL Ratio 4.9 (3.3-6.0) Urine Color Urine Appearance Urine pH (5.0-8.0) Ur Specific Waldron (1.001-1.035) Urine Protein (NEGATIVE) mg/dL Urine Glucose (UA) (NEGATIVE) mg/dL Urine Ketones (NEGATIVE) mg/dL Urine Occult Blood (NEGATIVE) Urine Nitrite (NEGATIVE) Urine Bilirubin (NEGATIVE) Urine Urobilinogen (<2.0) EU/dL Ur Leukocyte Esterase (NEGATIVE) Urine RBC (0-2/HPF) Urine WBC (0-5/HPF) Ur Epithelial Cells (NONE-FEW) Urine Bacteria (NEGATIVE) Med Orders - Current: Current Medications Aspirin (Aspirin) 81 mg PO DAILY [facility] Last Admin: 06/05/18 08:49 Dose: 81 mg Atenolol (Tenormin) 50 mg PO BID [facility] Last Admin: 06/05/18 20:15 Dose: Not Given Atorvastatin Calcium (Lipitor) 40 mg PO BEDTIME [facility] Last Admin: 06/05/18 20:15 Dose: Not Given Folic Acid (Folic Acid) 1 mg PO DAILY [facility] Last Admin: 06/05/18 08:49 Dose: 1 mg Furosemide (Lasix) 40 mg PO DAILY [facility] Last Admin: 06/05/18 08:49 Dose: 40 mg Heparin Sodium (Porcine) (Heparin Sodium) 5,000 units SUBCUT Q8H [facility] Last Admin: 06/06/18 06:19 Dose: 5,000 units Sodium Chloride (Normal Saline) 500 mls @ 1,000 mls/hr IV .BOLUS [facility] Last Admin: 06/05/18 14:52 Dose: 1,000 mls/hr Sodium Chloride (Normal Saline) 1,000 mls @ 75 mls/hr IV CONTINUOUS [facility] Last Admin: 06/05/18 18:00 Dose: 75 mls/hr Isosorbide Mononitrate (Imdur) 30 mg PO DAILY [facility] Last Admin: 06/05/18 08:46 Dose: 30 mg Levothyroxine Sodium (Synthroid) 100 mcg PO DAILY [facility] Last Admin: 06/05/18 08:48 Dose: 100 mcg Metoprolol Tartrate (Lopressor) 2.5 - 5 mg IVPUSH ASDIRECTED PRN PRN Reason: Tachycardia Nitrofurantoin Macrocrystals (Macrobid) 100 mg PO BID [facility] Last Admin: 06/05/18 20:15 Dose: Not Given Polysaccharide Iron Complex (Ferrex 150) 150 mg PO DAILY [facility] Last Admin: 06/05/18 08:49 Dose: 150 mg Potassium Chloride (Klor-Con M20) 40 meq PO DAILY [facility] Last Admin: 06/05/18 08:48 Dose: 40 meq Sodium Chloride (Saline Flush) 10 ml FLUSH ASDIRECTED PRN PRN Reason: Keep Vein Open Sodium Chloride (Saline Flush) 2.5 ml FLUSH ASDIRECTED PRN PRN Reason: Keep Vein Open Sodium Chloride (Normal Saline) 10 ml IV ASDIRECTED PRN PRN Reason: IV Use Discontinued Medications Adenosine (Adenocard) 6 mg IVPUSH NOW ONE Stop: 06/05/18 06:27 Last Admin: 06/05/18 06:26 Dose: 6 mg Adenosine (Adenocard) 6 mg IVPUSH NOW ONE Stop: 06/05/18 16:55 Last Admin: 06/05/18 17:52 Dose: 6 mg Digoxin (Lanoxin) 250 mcg IVPUSH Q2HR [facility] Stop: 06/05/18 20:01 Last Admin: 06/05/18 19:51 Dose: Not Given Enoxaparin Sodium (Lovenox) 40 mg SUBCUT Q24H [facility] Last Admin: 06/04/18 18:41 Dose: 40 mg Sodium Chloride (Normal Saline) 1,000 mls @ 75 mls/hr IV ASDIRECTED [facility] Last Admin: 06/03/18 09:57 Dose: 75 mls/hr Magnesium Sulfate 2 gm/ Premix 50 mls @ 50 mls/hr IV ONETIME ONE Stop: 06/04/18 21:03 Last Admin: 06/04/18 21:30 Dose: 50 mls/hr Metoprolol Tartrate (Lopressor) 2.5 mg IVPUSH ONETIME ONE Stop: 06/05/18 14:32 Last Admin: 06/05/18 15:11 Dose: 2.5 mg Potassium Chloride (Klor-Con M20) 40 meq PO ONETIME ONE Stop: 06/01/18 19:02 Last Admin: 06/01/18 21:31 Dose: 40 meq Potassium Chloride (Klor-Con M20) Confirm Administered Dose 40 meq .ROUTE .STK- MED ONE Stop: 06/01/18 21:29 Last Admin: 06/01/18 21:32 Dose: Not Given Potassium Chloride (Klor-Con) 40 meq PO DAILY [facility] Potassium Chloride (Klor-Con M20) 40 meq PO ONETIME ONE Stop: 06/04/18 19:22 Last Admin: 06/04/18 19:47 Dose: 40 meq - Exam Quality Assessment: No: Supplemental Oxygen General: Alert (Then), Other (Confused, pleasant). No: Oriented HEENT: Pupils Equal, Pupils Reactive Neck: Supple, Trachea Midline Lungs: Clear to Auscultation, Normal Respiratory Effort Cardiovascular: Regular Rate, Regular Rhythm GI/Abdominal Exam: Normal Bowel Sounds, Soft, No Distention (Female) Exam: Deferred Back Exam: Normal Inspection (Kyphosis) Extremities: Normal Inspection, No Pedal Edema Skin: Warm, Dry, Intact Neurological: No New Focal Deficit Psy/Mental Status: Alert - Problem List & Annotations (1) Paroxysmal SVT (supraventricular tachycardia) SNOMED Code(s): 25562536 Code(s): I47.1 - SUPRAVENTRICULAR TACHYCARDIA Status: Chronic Priority: High Current Visit: Yes (2) CVA (cerebral vascular accident) SNOMED Code(s): 381873544 Code(s): I63.9 - CEREBRAL INFARCTION, UNSPECIFIED Status: Acute Priority : High Current Visit: Yes Qualifiers: CVA mechanism: unspecified Qualified Code(s): I63.9 - Cerebral infarction, unspecified (3) Falls frequently SNOMED Code(s): 531068692 Code(s): R29.6 - REPEATED FALLS Status: Chronic Priority: High Current Visit: Yes (4) Dementia SNOMED Code(s): 03891848 Code(s): F03.90 - UNSPECIFIED DEMENTIA WITHOUT BEHAVIORAL DISTURBANCE Status: Chronic Priority: High Current Visit: Yes Qualifiers: Dementia type: vascular dementia Dementia behavioral disturbance: without behavioral disturbance Qualified Code(s): F01.50 - Vascular dementia without behavioral disturbance - Problem List Review Problem List Initiated/Reviewed/Updated: Yes - My Orders Last 24 Hours: My Active Orders 06/05/18 07:51 Consult to Physician [CONS] Stat 06/05/18 07:54 Notify Provider Consults [RC] ASDIRECTED 06/05/18 08:00 Consult to Speech Language Pathology [SCHOOL SUPERINTENDENT Evaluation and Treatment] [CONS] Routine 06/05/18 17:00 Insert Chung Catheter [Insert Urinary Catheter] [OM.PC] Q24H 06/05/18 18:00 Sodium Chloride 0.9% [Normal Saline] 1,000 ml IV CONTINUOUS 06/05/18 18:15 Resuscitation Status Routine 06/05/18 19:20 Urinary Catheter Assessment [RC] Q6H 06/06/18 08:00 Swallowing Function w Video [CR] Routine - Plan Plan:: The patient is an 87-year-old lady who overall is doing somewhat better today from her admission for parietal stroke. The patient had a video swallow study which had indicated that she is aspirating thin liquids. His been recommended that she continue with nectar thick liquids and smooth foods to avoid swallowing. The patient also was noted to have an at least 2 minute run of SVT and had been prepared to be given metoprolol and his self terminated. Currently at time of examination the patient is in normal sinus rhythm. The patient's family is not with her at this time although as of yesterday she was placed in a DO NOT INTUBATE/DO NOT RESUSCITATE category. The patient's family does not want the patient transferred for any further care and the patient's family is available we'll consider discussing hospice care. The patient may need to be transferred back to [place] in 1-2 days depending upon the level of care needed. The patient will be kept on telemetry for now. The patient's chronic kidney disease will also be monitored closely with basic metabolic panel. Other laboratory testings have been ordered.
--- NOTE | 2018-06-06 09:55 | CR ---
EXAMINATION: Oropharyngeal video swallow study. HISTORY: Failed bedside swallow COMPARISON: None TECHNIQUE: Lateral images obtained, speech pathologist present, various barium consistencies provided. FINDINGS: There is good bolus formation and transfer with thinner consistencies. There is adequate epiglottic inversion and tracheal elevation. There is deep penetration with thin liquids with late silent aspiration throughout the examination. Thicker consistencies were better tolerated. 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 IMPRESSION: 1. The penetration with delayed aspiration of thin liquids, silent. Please see speech pathology report for full details.
[2018-06-06] MEDS: Levothyroxine 100 MCG Tab PO SCH (10:15)
[2018-06-06] MEDS: Nitrofurantoin Monohydrate/Macrocrystalline 100 MG Cap PO SCH ×2 (10:15→20:47)
[2018-06-06] MEDS: Atenolol 50 MG Tab PO SCH (10:16)
[2018-06-06] MEDS: Potassium Chloride 20 MEQ Tab.ER PO SCH (10:16)
[2018-06-06] MEDS: Furosemide 40 MG Tab PO SCH (10:16)
[2018-06-06] MEDS: Folic Acid 1 MG Tab PO SCH (10:16)
[2018-06-06] MEDS: Iron Polysaccharides Complex 150 MG Cap PO SCH (10:17)
[2018-06-06] MEDS: Aspirin 81 MG Tab.Chew PO SCH (10:17)
[2018-06-06] MEDS: Isosorbide Mononitrate 30 MG Tab.ER PO SCH (10:42)
[2018-06-06] MEDS: Sodium Chloride 0.9% 1,000 ML IV SCH (11:40)
[2018-06-06] MEDS: Metoprolol Tartrate 25 MG Tab PO SCH (20:47)
[2018-06-06] MEDS: atorvaSTATin 40 MG Tab PO SCH (20:47)
[2018-06-06] MEDS: Isosorbide Dinitrate 10 MG Tab PO SCH (21:11)
[2018-06-07] MEDS: Sodium Chloride 0.9% 1,000 ML IV SCH (00:43)
[2018-06-07] MEDS: Isosorbide Dinitrate 10 MG Tab PO SCH (05:44)
[2018-06-07] MEDS: Heparin Sodium 5,000 Units/ML Vial SUBCUT SCH (05:44)
[2018-06-07 06:03] LABS: CHLORIDE,CL 107 mmol/L (98-107); SODIUM,NA 140 mmol/L (136-145)
--- NOTE | 2018-06-07 08:08 | PCM.DCSUM1 ---
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 Diagnosis: Stroke: Yes Modified Avery Scale: Mod.Sev.Disability ;Unable to Walk/Attend Bodily Needs W/ O Assistance Modified Avery Scale Score: 4 - Discharge Data Discharge Date: 06/07/18 Discharge Disposition: DC/Tfer to SNF 03 Condition: Fair - Discharge Diagnosis/Problem(s) (1) Paroxysmal SVT (supraventricular tachycardia) SNOMED Code(s): 03348249 ICD Code: I47.1 - SUPRAVENTRICULAR TACHYCARDIA Status: Chronic Priority: High Current Visit: Yes (2) CVA (cerebral vascular accident) SNOMED Code(s): 892402212 ICD Code: I63.9 - CEREBRAL INFARCTION, UNSPECIFIED Status: Acute Priority : High Current Visit: Yes Qualifiers: CVA mechanism: thrombosis Precerebral and cerebral artery: posterior cerebral artery Laterality of affected vessel: left Qualified Code(s): I63.332 - 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 (3) Falls frequently SNOMED Code(s): 073558798 ICD Code: R29.6 - REPEATED FALLS Status: Chronic Priority: High Current Visit: Yes (4) Dementia SNOMED Code(s): 58056838 ICD Code: F03.90 - UNSPECIFIED DEMENTIA WITHOUT BEHAVIORAL DISTURBANCE Status: Chronic Priority: High Current Visit: Yes Qualifiers: Dementia type: vascular dementia Dementia behavioral disturbance: without behavioral disturbance Qualified Code(s): F01.50 - Vascular dementia without behavioral disturbance - Patient Summary/Data Consults: Consultations 06/01/18 19:01 OT Evaluation and Treatment [CONS] Stat PT Evaluation and Treatment [CONS] Stat INJECTION OPERATOR Evaluation and Treatment [CONS] Routine 06/05/18 07:51 Consult to Physician [CONS] Stat 06/05/18 08:00 Consult to Speech Language Pathology [INJECTION OPERATOR Evaluation and Treatment] [CONS] Routine Hospital Course: The patient is an 87-year-old lady who had presented to the emergency department for admission on June 01, 2018. MRI obtained on June 01, 2018 showed a moderate sized left parietal occipital ischemic infarct. The patient had presented with her family due to confusion and "not making sense". The patient had initially been admitted and she was started on appropriate medication and also had been given permissive hypertension with regards to her ischemic stroke. She was also kept on telemetry. On June 04, 2018 it was also noted that the patient had episodes of sustained supraventricular tachycardia. Initially this had been for 3 minutes and the patient was otherwise asymptomatic. The patient had adenosine ordered but had converted back to normal sinus rhythm initially before this was given. The patient's electrolytes were monitored and replaced. She had been transferred to the intensive care unit. During the time patient has exhibited supraventricular tachycardia she had remained asymptomatic. Cardiology had been consulted and recommended that she be placed on metoprolol 12.5 mg by mouth twice a day. This has had the result of controlling the patient's episodes of SVT. She has not had any episodes of SVT over the past 48 hours while on telemetry in the intensive care unit. Anticoagulation is not recommended at this time. The patient also had a video fluoroscopic examination due to dysphagia and she was noted to have penetration of thin liquids into the bronchial tree. The patient had been placed on nectar thick fluids as well as mechanical soft diet. During the entire hospitalization the patient had remained pleasantly demented. She is able to converse but she is unable to recall place or time or recent events. Physical therapy is also evaluated the patient. She has been recommended for continued physical therapy while at alf facility. After conversation with the family she has been recommended to be in a DO NOT INTUBATE/DO NOT RESUSCITATE category. Further , the patient's family did not want any transfer to tertiary care center. We had also discussed hospice although this is not a consideration at this time. For now the patient is also on a nectar thick, mechanically soft diet in order to help prevent aspirations and I have discussed with the family the possibility of a PEG tube in the near future. This is something that they would not like to pursue. Palliative care measures may be a consideration in the future. The patient has been recommended to continue on her current mechanically soft, nectar thick diet as tolerated. She is to have physical therapy, occupational therapy with regards to her recent stroke. She is also to have activity as tolerated. The patient is currently hemodynamically stable and she has had no episodes of SVT and she has been discharged to alf facility when bed and transportation are available. - Patient Instructions Diet: Mechanical Soft Diet, Other: [place] thick liquids Activity: As Tolerated - Discharge Plan *PRESCRIPTION DRUG MONITORING PROGRAM REVIEWED*: No *COPY OF PRESCRIPTION DRUG MONITORING REPORT IN PATIENT DAREN: No Prescriptions/Med Rec: Metoprolol Tartrate [Lopressor] 12.5 mg PO BID #60 tablet Home Medications: Home Meds Iron Polysaccharide Complex [Poly-Iron] 150 mg PO DAILY 05/05/16 [History] Isosorbide Mononitrate [Imdur] 30 mg PO DAILY 05/05/16 [History] Potassium Chloride 40 meq PO DAILY 10/27/16 [History] Folic Acid 1 mg PO DAILY 06/01/18 [History] Levothyroxine [Synthroid] 100 mcg PO ACBREAKFAST 06/02/18 [History] Metoprolol Tartrate [Lopressor] 12.5 mg PO BID #60 tablet 06/07/18 [Rx] Nitrofurantoin [place]/Macrocryst [Nitrofurantoin [place]-MCR] 100 mg PO BID cap 01/15 [Rx] atorvaSTATin [Lipitor] 40 mg PO BEDTIME tablet 06/07/18 [Rx] Other Amb Orders: OT Evaluation and Treatment [CONS] Location: None Selected PT Evaluation and Treatment [CONS] Location: None Selected Oxygen Therapy Mode: Room Air Forms: ED Department Discharge Referrals: Chris Herzog MD [Physician] - 06/14/18 8:00 am (Next [place] rounds.) PCP,Unknown [Primary Care Provider] - - Discharge Summary/Plan Comment DC Time >30 min.: Yes - General Info Date of Service: 06/07/18 Admission Dx/Problem (Free Text: Admission Diagnosis/Problem Admission Diagnosis/Problem CVA, Cerebrovascular accident, PSVT, dementia Subjective Update: Doing better, awake and alert but not oriented to place or time. Short term memory impaired. Functional Status: Reports: Pain Controlled - Review of Systems General: Reports: No Symptoms HEENT: Reports: No Symptoms Pulmonary: Reports: No Symptoms Cardiovascular: Reports: No Symptoms Gastrointestinal: Reports: No Symptoms Genitourinary: Reports: No Symptoms Musculoskeletal: Reports: No Symptoms Skin: Reports: No Symptoms Neurological: Reports: No Symptoms Psychiatric: Reports: No Symptoms Systems Review Comment: Suspect - Patient Data Vitals - Most Recent: Last Vital Signs Temp 36.7 C 06/07/18 04:00 Pulse 76 06/06/18 20:47 Resp 19 06/07/18 07:00 BP 112/54 L 06/07/18 07:00 Pulse Ox 93 L 06/07/18 07:00 Weight - Most Recent: 52.707 kg I&O - Last 24 hours: Intake & Output 06/06/18 06/07/18 06/07/18 22:59 06:59 14:59 Intake Total 200 1619 Output Total 400 400 Balance -200 1219 Lab Results - Last 24 hrs: Laboratory Results - last 24 hr 06/07/18 06/07/18 Range/Units 05:42 05:42 WBC 5.13 (4.0-11.0) K/uL RBC 2.84 L (4.30-5.90) M/uL Hgb 8.1 L (12.0-16.0) g/dL Hct 25.4 L (36.0-46.0) % MCV 89.4 (80.0-98.0) fL MCH 28.5 (27.0-32.0) pg MCHC 31.9 (31.0-37.0) g/dL RDW Std Deviation 54.7 (28.0-62.0) fl RDW Coeff of Avinash 17 H (11.0-15.0) % Plt Count 189 (150-400) K/uL MPV 9.10 (7.40-12.00) fL Neut % (Auto) 74.1 (48.0-80.0) % Lymph % (Auto) 6.6 L (16.0-40.0) % [place] % (Auto) 10.9 (0.0-15.0) % Eos % (Auto) 8.2 H (0.0-7.0) % Baso % (Auto) 0.2 (0.0-1.5) % Neut # (Auto) 3.8 (1.4-5.7) K/uL Lymph # (Auto) 0.3 L (0.6-2.4) K/uL [place] # (Auto) 0.6 (0.0-0.8) K/uL Eos # (Auto) 0.4 (0.0-0.7) K/uL Baso # (Auto) 0.0 (0.0-0.1) K/uL Nucleated RBC % 0.0 /100WBC Nucleated RBCs # 0 K/uL Sodium 140 (136-145) mmol/L Potassium 3.8 (3.5-5.1) mmol/L Chloride 107 (98-107) mmol/L Carbon Dioxide 24.3 (21.0-32.0) mmol/L BUN 14 (7.0-18.0) mg/dL Creatinine 0.8 (0.6-1.0) mg/dL Est Cr Clr Drug Dosing 39.92 mL/min Estimated GFR (MDRD) > 60.0 ml/min Glucose 77 (74-106) mg/dL Calcium 8.0 L (8.5-10.1) mg/dL Med Orders - Current: Current Medications Aspirin (Aspirin) 81 mg PO DAILY [facility] Last Admin: 06/06/18 10:17 Dose: 81 mg Atorvastatin Calcium (Lipitor) 40 mg PO BEDTIME [facility] Last Admin: 06/06/18 20:47 Dose: 40 mg Folic Acid (Folic Acid) 1 mg PO DAILY [facility] Last Admin: 06/06/18 10:16 Dose: 1 mg Furosemide (Lasix) 40 mg PO DAILY [facility] Last Admin: 06/06/18 10:16 Dose: 40 mg Heparin Sodium (Porcine) (Heparin Sodium) 5,000 units SUBCUT Q8H [facility] Last Admin: 06/07/18 05:44 Dose: 5,000 units Sodium Chloride (Normal Saline) 500 mls @ 1,000 mls/hr IV .BOLUS [facility] Last Admin: 06/05/18 14:52 Dose: 1,000 mls/hr Sodium Chloride (Normal Saline) 1,000 mls @ 75 mls/hr IV CONTINUOUS [facility] Last Admin: 06/07/18 00:43 Dose: 75 mls/hr Isosorbide Dinitrate (Isordil) 10 mg PO TID [facility] Last Admin: 06/07/18 05:44 Dose: 10 mg Levothyroxine Sodium (Synthroid) 100 mcg PO DAILY [facility] Last Admin: 06/06/18 10:15 Dose: 100 mcg Metoprolol Tartrate (Lopressor) 2.5 - 5 mg IVPUSH ASDIRECTED PRN PRN Reason: Tachycardia Metoprolol Tartrate (Lopressor) 12.5 mg PO BID [facility] Last Admin: 06/06/18 20:47 Dose: 12.5 mg Nitrofurantoin Macrocrystals (Macrobid) 100 mg PO BID [facility] Last Admin: 06/06/18 20:47 Dose: 100 mg Polysaccharide Iron Complex (Ferrex 150) 150 mg PO DAILY [facility] Last Admin: 06/06/18 10:17 Dose: 150 mg Potassium Chloride (Klor-Con M20) 40 meq PO DAILY [facility] Last Admin: 06/06/18 10:16 Dose: 40 meq Sodium Chloride (Saline Flush) 10 ml FLUSH ASDIRECTED PRN PRN Reason: Keep Vein Open Sodium Chloride (Saline Flush) 2.5 ml FLUSH ASDIRECTED PRN PRN Reason: Keep Vein Open Sodium Chloride (Normal Saline) 10 ml IV ASDIRECTED PRN PRN Reason: IV Use Discontinued Medications Adenosine (Adenocard) 6 mg IVPUSH NOW ONE Stop: 06/05/18 06:27 Last Admin: 06/05/18 06:26 Dose: 6 mg Adenosine (Adenocard) 6 mg IVPUSH NOW ONE Stop: 06/05/18 16:55 Last Admin: 06/05/18 17:52 Dose: 6 mg Atenolol (Tenormin) 50 mg PO BID [facility] Last Admin: 06/06/18 10:16 Dose: Not Given Digoxin (Lanoxin) 250 mcg IVPUSH Q2HR [facility] Stop: 06/05/18 20:01 Last Admin: 06/05/18 19:51 Dose: Not Given Enoxaparin Sodium (Lovenox) 40 mg SUBCUT Q24H [facility] Last Admin: 06/04/18 18:41 Dose: 40 mg Sodium Chloride (Normal Saline) 1,000 mls @ 75 mls/hr IV ASDIRECTED [facility] Last Admin: 06/03/18 09:57 Dose: 75 mls/hr Magnesium Sulfate 2 gm/ Premix 50 mls @ 50 mls/hr IV ONETIME ONE Stop: 06/04/18 21:03 Last Admin: 06/04/18 21:30 Dose: 50 mls/hr Isosorbide Mononitrate (Imdur) 30 mg PO DAILY [facility] Last Admin: 06/06/18 10:42 Dose: Not Given Metoprolol Tartrate (Lopressor) 2.5 mg IVPUSH ONETIME ONE Stop: 06/05/18 14:32 Last Admin: 06/05/18 15:11 Dose: 2.5 mg Potassium Chloride (Klor-Con M20) 40 meq PO ONETIME ONE Stop: 06/01/18 19:02 Last Admin: 06/01/18 21:31 Dose: 40 meq Potassium Chloride (Klor-Con M20) Confirm Administered Dose 40 meq .ROUTE .STK- MED ONE Stop: 06/01/18 21:29 Last Admin: 06/01/18 21:32 Dose: Not Given Potassium Chloride (Klor-Con) 40 meq PO DAILY [facility] Potassium Chloride (Klor-Con M20) 40 meq PO ONETIME ONE Stop: 06/04/18 19:22 Last Admin: 06/04/18 19:47 Dose: 40 meq - Exam Quality Assessment: Denies: Supplemental Oxygen General: Reports: Alert, Cooperative, No Acute Distress. Denies: Oriented HEENT: Reports: Pupils Equal, Pupils Reactive, Mucous Membr. Moist/[place] Neck: Reports: Supple, Trachea Midline Lungs: Reports: Clear to Auscultation, Normal Respiratory Effort Cardiovascular: Reports: Regular Rate, Regular Rhythm GI/Abdominal Exam: Normal Bowel Sounds, Soft, No Distention (Female) Exam: Deferred Rectal (Female) Exam: Deferred Back Exam: Denies: Normal Inspection (Kyphosis), Full Range of Motion (Age- related changes) Extremities: No Pedal Edema Skin: Reports: Warm, Dry, Intact Neurological: Reports: No New Focal Deficit. Denies: Normal Gait Psy/Mental Status: Reports: Alert, Normal Affect, Normal Mood
[2018-06-07] MEDS: Aspirin 81 MG Tab.Chew PO SCH (08:34)
[2018-06-07] MEDS: Nitrofurantoin Monohydrate/Macrocrystalline 100 MG Cap PO SCH (08:34)
[2018-06-07] MEDS: Metoprolol Tartrate 25 MG Tab PO SCH (08:34)
[2018-06-07] MEDS: Potassium Chloride 20 MEQ Tab.ER PO SCH (08:34)
[2018-06-07] MEDS: Furosemide 40 MG Tab PO SCH (08:34)
[2018-06-07] MEDS: Folic Acid 1 MG Tab PO SCH (08:35)
[2018-06-07] MEDS: Levothyroxine 100 MCG Tab PO SCH (08:35)
[2018-06-07] MEDS: Iron Polysaccharides Complex 150 MG Cap PO SCH (08:36)
[2018-06-07] MEDS ORDERED: Bisacodyl 10 MG Supp RECTAL ONE (08:51)
[2018-06-07 12:06] VITALS: BP 128/64
--- NOTE | 2018-06-07 14:19 | ECHO ---
EXAM DATE: 06/01/18 PATIENT'S AGE: 87 The echocardiogram report can be seen in this patient's EMR (Electronic Medical Record) in the Reports section. The report has also been scanned into PACs. NAVEED
--- NOTE | 2018-06-08 00:36 | CONS ---
DATE OF CONSULTATION: DATE OF : 1930 PRIMARY CARE PHYSICIAN: Unknown PCP REASON FOR CONSULTATION: Tachycardia. HISTORY OF PRESENT ILLNESS: This is an 87-year-old female who had a history of paroxysmal atrial fibrillation, antiphospholipid syndrome, hypertension, moeo-xq-nyzrtnyv aortic stenosis, rheumatoid arthritis, history of syncope. I had seen her last time 1- 1/2 year ago for syncope when I did the stress test and it was positive for inferolateral wall ischemia as well as the inferior wall. At that time, I recommended her to have the angiogram done at [place]; however, she has not gone for it and she did not have transportation and then she has not come to my clinic for followup. At this time, she was admitted to the hospital because of new onset of slurred speech, difficulty speaking, but no focal weakness or numbness. She was found to have left parietal subacute infarct on the CT scan and she was admitted to the hospital. When she came into the hospital, her heart rate was doing okay until the 2nd day of her admission when her heart rate going up to like 149 and EKG showed SVT at that time with a heart rate of 149. Her blood pressure was ranging between 90/40 to 100/50 and she was on atenolol 50 mg twice a day as well as Imdur at 30 mg once a day for her chest pain; however, during her admission for her stroke, the atenolol and Imdur have not been given. She was given one dose of digoxin 250 IV; however, her heart rate still not coming down and adenosine 6 mg was given twice. She was converted to sinus rhythm afterwards. The echocardiogram was done showing preserved ejection fraction at this time as well. PAST MEDICAL HISTORY: Including paroxysmal atrial fibrillation, hypertension, lmpx-sn-xgzizdez aortic stenosis, rheumatoid arthritis, antiphospholipid syndrome. Not anticoagulated due to fall risk for atrial fibrillation and also history of syncope, unclear etiology. Abnormal stress test, possibly CAD. CURRENT MEDICATION: Home medications including atenolol 50 mg twice a day, Lasix 40 mg once a day, Imdur 30 mg once a day, KCl 40 mEq once a day. The current medication while she is in the hospital including Lipitor 40 mg once a day, aspirin 81 mg, folic acid 1 mg once a day, Lasix 40 mg once a day. Otherwise, atenolol and Imdur has been on hold. ALLERGIES: Darvon, Demerol, hydromorphone, iodine contrast, , penicillin. PAST SURGICAL HISTORY: Appendectomy, breast surgery, mastectomy, cataract surgery, tonsillectomy, tubal ligation, hysterectomy. FAMILY HISTORY: Mother has a history of kidney disease. Father has history of cardiac disorder. SOCIAL HISTORY: No smoking. No drug use. No alcohol use. REVIEW OF SYSTEMS: Except as indicated in HPI, positive for syncope, positive for difficulty speaking and stroke. Positive for abnormal stress test. Otherwise has been negative. PHYSICAL EXAMINATION: VITAL SIGNS: The current blood pressure after she converted to sinus rhythm 104/55, heart rate of 76, respirations 17, O2 saturation 99% on 1 L. HEENT: Not pale. No jaundice. No JVD. HEART: Normal S1, S2. No murmur. Regular rate and rhythm. LUNGS: Clear. ABDOMEN: Soft, nontender. Bowel sounds are present. No hepatosplenomegaly. EXTREMITIES: Legs, no edema. LABORATORY INVESTIGATION: CBC showed WBC 5, hematocrit of 26, hemoglobin of 8.8, platelets 186. Sodium 136, potassium 4.3, chloride 104, bicarb 26, BUN 16, creatinine 0.9. Troponin was 0.059, coming down to less than 0.05. EKG on June 05, 2018, at 3:29 p.m. showing SVT, possibly Q-waves in III and AVF, ST depression in I and aVL. After adenosine 16 mg x2, she converted back to sinus rhythm and the prelim echo show preserved ejection fraction. ASSESSMENT AND PLAN: This is an 87-year-old female history of paroxysmal atrial fibrillation, hypertension, qwea-ou-tvrzfmih aortic stenosis, rheumatoid arthritis, history of syncope unclear etiology, positive stress test, history of antiphospholipid syndrome, history of frequent falls and not on anticoagulation because of fall risk presented to the hospital with acute stroke and experiencing the episode of tachycardia, SVT, converted to sinus rhythm after adenosine. I had a conversation with the family, and the family and the patient herself verbalized understanding and wished to pursue only conservative management. They could not drive out of town at all definitely. They prefer just to try the conservative management. If any testing that has to be done outside of the town, they would not do it for sure because of lack of transportation and they totally understand of not having a test done and they are pretty much satisfied whatever that can be done in town rather than go out of town. Other than that, I will probably go conservative for her regarding her tachycardia as well as abnormal stress test. She should be on aspirin as well as the statin for the acute stroke. She also has aspiration risk, so I would probably change the atenolol to metoprolol 12.5 twice a day as well as change the long-acting Imdur to isosorbide dinitrate 10 mg 3 times a day. Regarding her atrial fibrillation and her history of stroke with the risks of fall, I would probably have her on just aspirin. The patient's family and the patient herself understand that aspirin is not as effective as the NOAC or Coumadin; however, due to the fall risk and also uncertain compliance that it would be safer for her to take just an aspirin expecting the higher risk of a stroke from atrial fibrillation. ROSS ORELLANA /[id number]
== END 2018-06-07 13:45 | DRG 65 ==
LOC: MW.ED 16:59 → MW.MS 18:47 → MW.ICU 06-04 20:00
PROVIDERS: ADMIT Internal Medicine; ATTEND Internal Medicine
DX: I63.9 Cerebral infarction, unspecified (principal); I63.432 Cerebral infarction due to embolism of left posterior cerebral artery; I47.1 Supraventricular tachycardia; I10 Essential (primary) hypertension; D68.61 Antiphospholipid syndrome; N18.4 Chronic kidney disease, stage 4 (severe); R47.01 Aphasia; R13.10 Dysphagia, unspecified; R47.89 Other speech disturbances; R29.6 Repeated falls; I25.119 Atherosclerotic heart disease of native coronary artery with unspecified angina pectoris; F01.50 Vascular dementia, unspecified severity, without behavioral disturbance, psychotic disturbance, mood disturbance, and anxiety; R33.9 Retention of urine, unspecified; E87.6 Hypokalemia; I48.0 Paroxysmal atrial fibrillation; I35.0 Nonrheumatic aortic (valve) stenosis; M06.9 Rheumatoid arthritis, unspecified; I12.9 Hypertensive chronic kidney disease with stage 1 through stage 4 chronic kidney disease, or unspecified chronic kidney disease; R91.1 Solitary pulmonary nodule; Z79.01 Long term (current) use of anticoagulants; K21.9 Gastro-esophageal reflux disease without esophagitis; D64.9 Anemia, unspecified; E89.0 Postprocedural hypothyroidism; I25.2 Old myocardial infarction; Z88.5 Allergy status to narcotic agent; Z86.711 Personal history of pulmonary embolism; Z88.0 Allergy status to penicillin; Z88.8 Allergy status to other drugs, medicaments and biological substances; Z91.041 Radiographic dye allergy status; Z85.3 Personal history of malignant neoplasm of breast; Z90.11 Acquired absence of right breast and nipple; Z86.73 Personal history of transient ischemic attack (TIA), and cerebral infarction without residual deficits; Z79.899 Other long term (current) drug therapy; Z86.718 Personal history of other venous thrombosis and embolism; Z79.890 Hormone replacement therapy; Z90.710 Acquired absence of both cervix and uterus; Z66 Do not resuscitate
CPT/HCPCS: 36415; 51702; 70450; 70450-26; 70544; 70544-26; 70551; 70551-26; 71045; 71045-26; 74230; 74230-26; 80048; 80053; 80061; 81001; 83735; 84100; 84443; 84484; 85025; 85610; 85730; 87086; 92523-GN-52; 92610-GN; 92611-GN; 93005; 93306; 97161-GP; 97164-GP; 97165-GO; 99285-25; A9270-GY; J0153; J1160; J1644; J1650; J3475; J3490; J7040

== ENCOUNTER 2018-08-23 11:42 | Emergency (ER) | payer MEDICARE ==
[2018-08-23] MEDS ORDERED: Sodium Chloride 0.9% 1,000 ML IV SCH (11:45)
--- NOTE | 2018-08-23 11:46 | EDM.PDOC ---
ED HPI GENERAL MEDICAL PROBLEM - General Stated Complaint: possible stroke Time Seen by Provider: 08/23/18 11:45 Source of Information: Reports: Patient - History of Present Illness INITIAL COMMENTS - FREE TEXT/NARRATIVE: HISTORY AND PHYSICAL: History of present illness: [Patient was with speech pathologist today Upon getting ready to leave she was assisted up and walking towards the door, she started to get dizzy and the speech pathologist helped lower her to the floor she was somewhat altered for a few moments and then perked up and was at baseline, she arrives in no distress no complaints no fever nausea vomiting chills sweats no chest pain shortness breath headache dizziness palpitation no bowel or urine symptoms She arrives as such alert interactive easily examined ] Review of systems: As per history of present illness and below otherwise all systems reviewed and negative. Past medical history: As per history of present illness and as reviewed below otherwise noncontributory. Surgical history: As per history of present illness and as reviewed below otherwise noncontributory. Social history: No reported history of drug or alcohol abuse. Family history: As per history of present illness and as reviewed below otherwise noncontributory. Physical exam: HEENT: Atraumatic, normocephalic, pupils reactive, negative for conjunctival pallor or scleral icterus, mucous membranes moist, throat clear, neck supple, nontender, trachea midline. Lungs: Clear to auscultation, breath sounds equal bilaterally, chest nontender. Heart: S1S2, regular, negative for clicks, rubs, or JVD. Abdomen: Soft, nondistended, nontender. Negative for masses or hepatosplenomegaly. Negative for costovertebral tenderness. Pelvis: Stable nontender. Genitourinary: Deferred. Rectal: Deferred. Extremities: Atraumatic, negative for cords or calf pain. Neurovascular unremarkable. Neuro: Awake, alert, oriented. Cranial nerves II through XII unremarkable. Cerebellum unremarkable. Motor and sensory unremarkable throughout. Exam nonfocal. Diagnostics: [CBC CMP troponin INR EKG Chest [address] Therapeutics: [ normal saline ] Impression: [Vasovagal Syncope] Atrial fibrillation rate control Chronic history of baseline Definitive disposition and diagnosis as appropriate pending reevaluation and review of above. - Related Data Allergies Allergy/AdvReac Type Severity Reaction Status Date / Time hydromorphone HCl Allergy Other Verified 08/23/18 11:50 [From Dilaudid] Iodinated Contrast- Oral and Allergy Cannot Verified 08/23/18 11:50 IV Dye Remember [Iodinated Contrast Media - IV Dye] meperidine HCl [From Demerol] Allergy Hallucinati Verified 08/23/18 11:50 ons metoclopramide Allergy Cannot Verified 08/23/18 11:50 Remember Penicillins Allergy Swelling Verified 08/23/18 11:50 propoxyphene HCl Allergy Hallucinati Verified 08/23/18 11:50 [From Darvon] ons Home Meds: Home Meds Iron Polysaccharide Complex [Poly-Iron] 150 mg PO DAILY 05/05/16 [History] Isosorbide Mononitrate [Imdur] 30 mg PO DAILY 05/05/16 [History] Potassium Chloride 40 meq PO DAILY 10/27/16 [History] Folic Acid 1 mg PO DAILY 06/01/18 [History] Levothyroxine [Synthroid] 100 mcg PO ACBREAKFAST 06/02/18 [History] Metoprolol Tartrate [Lopressor] 12.5 mg PO BID #60 tablet 06/07/18 [Rx] atorvaSTATin [Lipitor] 40 mg PO BEDTIME tablet 06/07/18 [Rx] Acetaminophen 500 mg PO Q4H PRN 08/23/18 [History] Acetaminophen 500 mg PO TID 08/23/18 [History] Diphenhyd/Lidocaine/MagAl/Daniel [First-Mouthwash BLM Susp] 1 swab PO Q8H PRN [History] Multivitamin [Daily Multiple Vitamin] 1 each PO DAILY 08/23/18 [History] Past Medical History - Past Health History Medical/Surgical History: Denies Medical/Surgical History HEENT History: Reports: Other (See Below) Other HEENT History: dysphagia Cardiovascular History: Reports: Hypertension, NC Other Cardiovascular History: lung nodule followed by CT Respiratory History: Reports: Bronchitis, Recurrent, Other (See Below) Other Respiratory History: On 07/16/[address] scan identified 6 mm nodule plural base. History of PE. Gastrointestinal History: Reports: Bowel Obstruction, GERD Genitourinary History: Reports: None CLINICAL ADMINISTRATIVE COORDINATOR History: Reports: Other CLINICAL ADMINISTRATIVE COORDINATOR History: Of breast cancer left side/left mastectomy Neurological History: Reports: CVA Other Neuro History: stroke 1991 Psychiatric History: Reports: None Endocrine/Metabolic History: Reports: Hypothyroidism, Other (See Below) Other Endocrine/Metabolic History: none Hematologic History: Reports: Anemia, Anticoagulation Therapy Other Hematologic History: DVT and PE Immunologic History: Reports: Other (See Below) Other Immunologic History: lupus Oncologic (Cancer) History: Reports: Breast Other Oncologic History: left breast removed Dermatologic History: Reports: None - Infectious Disease History Infectious Disease History: Reports: Chicken Pox, Measles, Mumps - Past Surgical History Female Surgical History: Reports: Breast Biopsy, D&C, Hysterectomy, Mastectomy, Other (See Below), Tubal Ligation Social & Family History - Family History Family Medical History: Noncontributory - Caffeine Use Caffeine Use: Reports: Coffee, Tea Caffeine Use Comment: 3cups/day ED ROS GENERAL - Review of Systems Review Of Systems: See Below ED EXAM, GENERAL - Physical Exam Exam: See Below Course - Vital Signs Last Recorded V/S: Last Vital Signs Temp 97.6 F 08/23/18 11:50 Pulse 70 08/23/18 13:26 Resp 16 08/23/18 13:26 BP 97/53 L 08/23/18 13:26 Pulse Ox 98 08/23/18 13:26 Orthostatic Blood Pressure [ 107/63 Standing] Orthostatic Blood Pressure [ 122/74 Sitting] Orthostatic Blood Pressure [ 98/49 Supine] - Orders/Labs/Meds Labs: Laboratory Tests 08/23/18 08/23/18 08/23/18 Range/Units 12:22 12:22 12:22 WBC 5.22 (4.0-11.0) K/uL RBC 3.13 L (4.30-5.90) M/uL Hgb 9.3 L (12.0-16.0) g/dL Hct 29.6 L (36.0-46.0) % MCV 94.6 (80.0-98.0) fL MCH 29.7 (27.0-32.0) pg MCHC 31.4 (31.0-37.0) g/dL RDW Std Deviation 67.0 H (28.0-62.0) fl RDW Coeff of Avinash 19 H (11.0-15.0) % Plt Count 239 (150-400) K/uL MPV 8.50 (7.40-12.00) fL Neut % (Auto) 77.5 (48.0-80.0) % Lymph % (Auto) 10.2 L (16.0-40.0) % [place] % (Auto) 9.4 (0.0-15.0) % Eos % (Auto) 2.5 (0.0-7.0) % Baso % (Auto) 0.4 (0.0-1.5) % Neut # (Auto) 4.1 (1.4-5.7) K/uL Lymph # (Auto) 0.5 L (0.6-2.4) K/uL [place] # (Auto) 0.5 (0.0-0.8) K/uL Eos # (Auto) 0.1 (0.0-0.7) K/uL Baso # (Auto) 0.0 (0.0-0.1) K/uL Nucleated RBC % 0.0 /100WBC Nucleated RBCs # 0 K/uL INR 0.98 Sodium 135 L (136-145) mmol/L Potassium 4.2 (3.5-5.1) mmol/L Chloride 103 (98-107) mmol/L Carbon Dioxide 25.6 (21.0-32.0) mmol/L BUN 13 (7.0-18.0) mg/dL Creatinine 0.8 (0.6-1.0) mg/dL Est Cr Clr Drug Dosing TNP Estimated GFR (MDRD) > 60.0 ml/min Glucose 115 H (74-106) mg/dL Calcium 8.2 L (8.5-10.1) mg/dL Total Bilirubin 0.2 (0.2-1.0) mg/dL AST 24 (15-37) IU/L ALT 28 (14-63) IU/L Alkaline Phosphatase 69 (46-116) U/L Troponin I < 0.050 (0.000-0.056) ng/mL Total Protein 6.4 (6.4-8.2) g/dL Albumin 1.6 L (3.4-5.0) g/dL Globulin 4.8 H (2.6-4.0) g/dL Albumin/Globulin Ratio 0.3 L (0.9-1.6) Meds: Medications Discontinued Medications Generic Name Dose Route Start Last Admin Trade Name Freq PRN Reason Stop Dose Admin Sodium Chloride 1,000 mls @ 125 mls/hr 08/23/18 11:45 08/23/18 12:41 Normal Saline IV 125 mls/hr STAT AYESHA Administration Departure - Departure Time of Disposition: 13:56 Disposition: Home, Self-Care 01 Condition: Good Clinical Impression: Vasovagal syncope, Encounter for medical screening examination - Discharge Information Instructions: Medical Screening Exam, Syncope, [id number] Referrals: Chris Herzog MD [Primary Care Provider] - Forms: ED Department Discharge
--- NOTE | 2018-08-23 12:07 | CT ---
EXAMINATION: Non contrast CT head. Coronal and sagittal reformats. HISTORY: Syncope FINDINGS: No evidence of intra or extra axial hemorrhage, mass, midline shift, hydrocephalus or edema. There is moderate generalized atrophy. Encephalomalacia noted within the left parietal region. No hypoattenuation changes in the major vascular territories to suggest acute infarct. No abnormal intracranial calcifications are detected. No evidence of substantial vascular calcifications. Paranasal sinuses and mastoid air cells are essentially well aerated without substantial findings. Pituitary fossa appears unremarkable. Orbits and globes are symmetric. Calvarium is intact. No evidence of skull fracture. IMPRESSION: 1. No definite acute intracranial findings. 2. Encephalomalacia within the left parietal region. 3. Moderate generalized atrophy. The findings were called to the ER at 12:00 PM.
--- NOTE | 2018-08-23 12:26 | CR ---
EXAMINATION: Portable chest radiograph. HISTORY: Syncope. FINDINGS: The trachea is midline. The cardiomediastinal silhouette is within normal limits. Stable scarring and interstitial prominence bilaterally. No pulmonary infiltrates, effusions or pneumothorax. Osseous structures appear osteopenic. IMPRESSION: Chronic interstitial changes without definite acute cardiopulmonary finding.
[2018-08-23 12:53] LABS: CHLORIDE,CL 103 mmol/L (98-107); SODIUM,NA 135 mmol/L (136-145)
[2018-08-23 13:36] VITALS: BP 97/53
== END 2018-08-23 14:30 | disposition home or self-care (01) ==
LOC: MW.ED 11:42
DX: R55 Syncope and collapse (principal); I48.91 Unspecified atrial fibrillation; I10 Essential (primary) hypertension; I25.2 Old myocardial infarction; K21.9 Gastro-esophageal reflux disease without esophagitis; E03.9 Hypothyroidism, unspecified; Z88.6 Allergy status to analgesic agent; Z91.041 Radiographic dye allergy status; Z88.5 Allergy status to narcotic agent; Z88.0 Allergy status to penicillin; Z88.8 Allergy status to other drugs, medicaments and biological substances; Z79.899 Other long term (current) drug therapy
CPT/HCPCS: 36415; 70450; 70450-26; 71045; 71045-26; 80053; 84484; 85025; 85610; 93005; 99284; 99285-25; J7040

== ENCOUNTER 2019-08-20 07:51 | Emergency (ER) | payer MEDICARE, MEDICAID ==
[2019-08-20] MEDS ORDERED: Sodium Chloride 0.9% 10 ML SDV IV PRN (08:05)
[2019-08-20] MEDS ORDERED: Sodium Chloride 0.9% 10 ML Syringe FLUSH PRN (08:05)
[2019-08-20] MEDS ORDERED: Sodium Chloride 0.9% 2.5 ML Syringe FLUSH PRN (08:05)
--- NOTE | 2019-08-20 08:08 | EDM.PDOC ---
ED HPI GENERAL MEDICAL PROBLEM - General Chief Complaint: General Stated Complaint: BROUGHT IN FROM [facility] Time Seen by Provider: 08/20/19 07:53 Source of Information: Reports: Group Home Records, Old Records History Limitations: Reports: Other (Dementia) - History of Present Illness INITIAL COMMENTS - FREE TEXT/NARRATIVE: This is an 88-year-old female with a past medical history of paroxysmal atrial fibrillation, antiphospholipid antibody syndrome, hypertension, mild to moderate aortic stenosis, rheumatoid arthritissevere dementia, ischemic CVA, pulmonary embolism not on anticoagulation, hypothyroidism, CKD stage IV, hypertension, SVT, atrial fibrillation, prior myocardial infarction, SLE presenting from detention with reports of headache, abdominal guarding, and frequent urination. On arrival she is not accompanied by any family or staff from her detention. She is unable to participate in the HPI due to severe dementia. I spoke with the patient's nurse at the detention. She was concerned because she obtained a urinalysis and it seemed very malodorous. Today, she noticed that the patient was trying to urinate frequently. She complained of feeling nauseated and had some retching but no actual emesis. She was also holding her head and complaining of a headache. - Related Data Allergies Allergy/AdvReac Type Severity Reaction Status Date / Time hydromorphone HCl Allergy Other Verified 08/20/19 08:29 [From Dilaudid] Iodinated Contrast Media Allergy Cannot Verified 08/20/19 08:29 [Iodinated Contrast Media - Remember IV Dye] meperidine Allergy Other Verified 08/20/19 08:29 meperidine HCl [From Demerol] Allergy Hallucinati Verified 08/20/19 08:29 ons metoclopramide Allergy Cannot Verified 08/20/19 08:29 Remember Penicillins Allergy Swelling Verified 08/20/19 08:29 propoxyphene HCl Allergy Hallucinati Verified 08/20/19 08:29 [From Darvon] ons Home Meds: Home Meds Iron Polysaccharide Complex [Poly-Iron] 150 mg PO DAILY 05/05/16 [History] Isosorbide Mononitrate [Imdur] 30 mg PO DAILY 05/05/16 [History] Potassium Chloride 40 meq PO DAILY 10/27/16 [History] Folic Acid 1 mg PO DAILY 06/01/18 [History] Levothyroxine [Synthroid] 100 mcg PO ACBREAKFAST 06/02/18 [History] Metoprolol Tartrate [Lopressor] 12.5 mg PO BID #60 tablet 06/07/18 [Rx] atorvaSTATin [Lipitor] 40 mg PO BEDTIME tablet 06/07/18 [Rx] Acetaminophen 500 mg PO Q4H PRN 08/23/18 [History] Acetaminophen 500 mg PO TID 08/23/18 [History] Multivitamin [Daily Multiple Vitamin] 1 each PO DAILY 08/23/18 [History] Albuterol Sulfate 1 dose INH Q4HR PRN 08/20/19 [History] Biscolax Suppository 1 supp RECTAL DAILY PRN 08/20/19 [History] Docusate Sodium [Colace] 100 mg PO BID 08/20/19 [History] Magnesium Hydroxide [Milk of Magnesia] 30 ml PO DAILY 08/20/19 [History] polyethylene glycoL 3350 [MiraLAX] 17 gm PO BID 08/20/19 [History] Past Medical History - Past Health History Medical/Surgical History: Denies Medical/Surgical History HEENT History: Reports: Other (See Below) Other HEENT History: dysphagia Cardiovascular History: Reports: Hypertension, [place] Other Cardiovascular History: lung nodule followed by CT Respiratory History: Reports: Bronchitis, Recurrent, Other (See Below) Other Respiratory History: On 07/16/[address] scan identified 6 mm nodule plural base. History of PE. Gastrointestinal History: Reports: Bowel Obstruction, GERD Genitourinary History: Reports: None HEALTH INSURANCE AGENT History: Reports: Other HEALTH INSURANCE AGENT History: Of breast cancer left side/left mastectomy Neurological History: Reports: CVA Other Neuro History: stroke 1991 Psychiatric History: Reports: None Endocrine/Metabolic History: Reports: Hypothyroidism, Other (See Below) Other Endocrine/Metabolic History: none Hematologic History: Reports: Anemia, Anticoagulation Therapy Other Hematologic History: DVT and PE Immunologic History: Reports: Other (See Below) Other Immunologic History: lupus Oncologic (Cancer) History: Reports: Breast Other Oncologic History: left breast removed Dermatologic History: Reports: None - Infectious Disease History Infectious Disease History: Reports: Chicken Pox, Measles, Mumps - Past Surgical History Female Surgical History: Reports: Breast Biopsy, D&C, Hysterectomy, Mastectomy, Other (See Below), Tubal Ligation Social & Family History - Family History Family Medical History: Noncontributory - Caffeine Use Caffeine Use: Reports: Coffee, Tea Caffeine Use Comment: 3cups/day ED ROS GENERAL - Review of Systems Review Of Systems: Unable To Obtain Reason Not Obtained: Dementia ED EXAM, GENERAL - Physical Exam Exam: See Below Free Text/Narrative:: Vital signs reviewed. Nursing notes reviewed. Constitutional: Awake, alert, non-distressed. Thin appearing woman Head: Normocephalic, atraumatic. Eyes: EOMI, conjunctiva normal, no discharge, no scleral icterus. Pupils 3 mm bilaterally Ears, Nose, Throat: External ears and nose normal, moist oral mucosa. Cardiovascular: 2+ radial pulse, capillary refill less than 2 seconds. Pulmonary: normal work of breathing, no accessory muscle use. CTA BL Abdomen/GI: Soft, nontender, nondistended, no guarding or rigidity, no masses. Musculoskeletal: No deformities. No pain over the spine over the back Integumentary: Appropriate color for ethnicity, warm, dry, no pallor or jaundice, no rash. Neurologic: Alert, oriented to person only, normal speech, no facial droop, moving all extremities well. Exam Limited By: Other (dementia) EKG INTERPRETATION EKG Interpretation Comments: 12-Lead ECG Interpretation Acquired: 8:14 AM Rhythm: Sinus rhythm Rate: 90 bpm Vanderbilt: Left axis deviation Intervals: Normal Ectopy: None Ischemic Changes: QS complexes in 2, 3, aVF. Poor R wave progression. RV Strain: No obvious RV strain pattern. ST Segments/T-Waves: No notable changes Interpretation: Marked artifact, but no acute ischemia appreciated. Q waves in inferior leads. Course - Vital Signs Text/Narrative:: Patient hemodynamically stable, afebrile, well-appearing, looks nontoxic. Differential diagnosis includes but is not limited to: UTI, pyelonephritis, sepsis, intracranial hemorrhage, stroke, migraine, benign headache, appendicitis, kidney stone, intra-abdominal infection, electrolyte disturbance, hypo-or hyperglycemia, anemia, etc. Head CT shows no acute findings. Labs show leukocytosis to 15.84, normocytic anemia, normal platelet count. Lactate is normal. Electrolytes and renal function are reassuring. Troponin is elevated at 0.090. Albumin low at 1.3. Lipase is within normal limits. Urinalysis appears grossly infected with 4+ bacteria, too many white blood cells to count, and small leukocyte esterase. Trace blood also noted. Patient is severely demented and is not able to answer if she has chest discomfort or any trouble breathing. Her twelve-lead EKG does not appear overtly ischemic. SIRS criteria met. 2 sets of blood cultures were ordered prior to IV ceftriaxone administration. Urine culture was also added on. Patient will need to be admitted to the hospital for sepsis due to UTI and concern for type II myocardial infarction. 9:58 AM: I spoke with the hospitalist Dr. Whelan regarding the case. He feels comfortable admitting the patient to the hospital here as long as the second troponin is not elevated compared to the first. We will plan to monitor the patient here in the emergency department until the second troponin results. We obtained a second EKG which appears essentially identical to the first. 12:23: Troponin jacquie from 0.090-0.146. Given this rise, patient would not be appropriate to admit to our facility given lack of on-call cardiology and lack of interventional cardiology. We will plan to transfer the patient to [facility] in [place], [place]. 12:[address] Nbole at the [facility] ([place]) ED who agrees to accept the transfer. I also spoke with the patient's daughter by phone, she is agreeable to the plan of transport to [facility] and admission. Transferred to the ground EMS crew in good condition. Last Recorded V/S: Last Vital Signs Temp 36.6 C 08/20/19 12:46 Pulse 91 08/20/19 12:46 Resp 18 08/20/19 12:46 BP 134/72 08/20/19 12:46 Pulse Ox 97 08/20/19 12:46 - Orders/Labs/Meds Orders: Active Orders 24 hr Category Date Time Status EKG 12 Lead [EKG Documentation Completion] [RC] STAT Care 08/20/19 08:05 Active EKG 12 Lead [EKG Documentation Completion] [RC] STAT Care 08/20/19 09:23 Active Pulse Oximetry [RC] ASDIRECTED Care 08/20/19 08:06 Active CULTURE BLOOD [BC] Stat Lab 08/20/19 08:35 Received CULTURE BLOOD [BC] Stat Lab 08/20/19 09:23 Results CULTURE URINE [RM] Stat Lab 08/20/19 08:13 Received Sodium Chloride 0.9% [Normal Saline] Med 08/20/19 08:05 Active 10 ml IV ASDIRECTED PRN Sodium Chloride 0.9% [Saline Flush] Med 08/20/19 08:05 Active 10 ml FLUSH ASDIRECTED PRN Sodium Chloride 0.9% [Saline Flush] Med 08/20/19 08:05 Active 2.5 ml FLUSH ASDIRECTED PRN Blood Culture x2 Reflex Set [OM.PC] Stat Ot 08/20/19 09:05 Ordered Peripheral IV Insertion Adult [OM.PC] Stat Ot 08/20/19 08:05 Ordered Medication Orders Sodium Chloride (Saline Flush) 10 ml FLUSH ASDIRECTED PRN PRN Reason: Keep Vein Open Sodium Chloride (Saline Flush) 2.5 ml FLUSH ASDIRECTED PRN PRN Reason: Keep Vein Open Sodium Chloride (Normal Saline) 10 ml IV ASDIRECTED PRN PRN Reason: IV Use Labs: Laboratory Tests 08/20/19 08/20/19 08/20/19 Range/Units 08:13 08:35 08:35 WBC 15.84 H (4.0-11.0) K/uL RBC 3.55 L (4.30-5.90) M/uL Hgb 10.7 L (12.0-16.0) g/dL Hct 33.0 L (36.0-46.0) % MCV 93.0 (80.0-98.0) fL MCH 30.1 (27.0-32.0) pg MCHC 32.4 (31.0-37.0) g/dL RDW Std Deviation 56.2 (28.0-62.0) fl RDW Coeff of Avinash 16 H (11.0-15.0) % Plt Count 233 (150-400) K/uL MPV 9.00 (7.40-12.00) fL Neut % (Auto) 88.8 H (48.0-80.0) % Lymph % (Auto) 3.0 L (16.0-40.0) % [place] % (Auto) 8.0 (0.0-15.0) % Eos % (Auto) 0.1 (0.0-7.0) % Baso % (Auto) 0.1 (0.0-1.5) % Neut # (Auto) 14.1 H (1.4-5.7) K/uL Lymph # (Auto) 0.5 L (0.6-2.4) K/uL [place] # (Auto) 1.3 H (0.0-0.8) K/uL Eos # (Auto) 0.0 (0.0-0.7) K/uL Baso # (Auto) 0.0 (0.0-0.1) K/uL Nucleated RBC % 0.0 /100WBC Nucleated RBCs # 0 K/uL Lactate 1.4 (0.20-2.00) mmol/L Sodium (136-145) mmol/L Potassium (3.5-5.1) mmol/L Chloride (98-107) mmol/L Carbon Dioxide (21.0-32.0) mmol/L BUN (7.0-18.0) mg/dL Creatinine (0.6-1.0) mg/dL Est Cr Clr Drug Dosing Estimated GFR (MDRD) ml/min Glucose (74-106) mg/dL Calcium (8.5-10.1) mg/dL Total Bilirubin (0.2-1.0) mg/dL AST (15-37) IU/L ALT (14-63) IU/L Alkaline Phosphatase (46-116) U/L Troponin I (0.000-0.056) ng/mL Total Protein (6.4-8.2) g/dL Albumin (3.4-5.0) g/dL Globulin (2.6-4.0) g/dL Albumin/Globulin Ratio (0.9-1.6) Lipase (73-393) U/L Urine Color YELLOW Urine Appearance CLOUDY Urine pH 7.5 (5.0-8.0) Ur Specific [place] 1.020 (1.001-1.035) Urine Protein >=300 H (NEGATIVE) mg/dL Urine Glucose (UA) NEGATIVE (NEGATIVE) mg/dL Urine Ketones TRACE H (NEGATIVE) mg/dL Urine Occult Blood TRACE-INTACT H (NEGATIVE) Urine Nitrite NEGATIVE (NEGATIVE) Urine Bilirubin NEGATIVE (NEGATIVE) Urine Urobilinogen 0.2 (<2.0) EU/dL Ur Leukocyte Esterase SMALL H (NEGATIVE) Urine RBC 3-5 (0-2/HPF) Urine WBC TO NUMEROUS TO COUNT H (0-5/HPF) Ur Epithelial Cells RARE (NONE-FEW) Urine Bacteria 4+ H (NEGATIVE) 08/20/19 08/20/19 Range/Units 08:35 11:26 WBC (4.0-11.0) K/uL RBC (4.30-5.90) M/uL Hgb (12.0-16.0) g/dL Hct (36.0-46.0) % MCV (80.0-98.0) fL MCH (27.0-32.0) pg MCHC (31.0-37.0) g/dL RDW Std Deviation (28.0-62.0) fl RDW Coeff of Avinash (11.0-15.0) % Plt Count (150-400) K/uL MPV (7.40-12.00) fL Neut % (Auto) (48.0-80.0) % Lymph % (Auto) (16.0-40.0) % [place] % (Auto) (0.0-15.0) % Eos % (Auto) (0.0-7.0) % Baso % (Auto) (0.0-1.5) % Neut # (Auto) (1.4-5.7) K/uL Lymph # (Auto) (0.6-2.4) K/uL [place] # (Auto) (0.0-0.8) K/uL Eos # (Auto) (0.0-0.7) K/uL Baso # (Auto) (0.0-0.1) K/uL Nucleated RBC % /100WBC Nucleated RBCs # K/uL Lactate (0.20-2.00) mmol/L Sodium 134 L (136-145) mmol/L Potassium 4.3 (3.5-5.1) mmol/L Chloride 100 (98-107) mmol/L Carbon Dioxide 24.4 (21.0-32.0) mmol/L BUN 21 H (7.0-18.0) mg/dL Creatinine 0.9 (0.6-1.0) mg/dL Est Cr Clr Drug Dosing TNP Estimated GFR (MDRD) 59.2 ml/min Glucose 132 H (74-106) mg/dL Calcium 9.0 (8.5-10.1) mg/dL Total Bilirubin 0.2 (0.2-1.0) mg/dL AST 28 (15-37) IU/L ALT 22 (14-63) IU/L Alkaline Phosphatase 110 (46-116) U/L Troponin I 0.090 H* 0.146 H* (0.000-0.056) ng/mL Total Protein 7.5 (6.4-8.2) g/dL Albumin 1.3 L (3.4-5.0) g/dL Globulin 6.2 H (2.6-4.0) g/dL Albumin/Globulin Ratio 0.2 L (0.9-1.6) Lipase 130 (73-393) U/L Urine Color Urine Appearance Urine pH (5.0-8.0) Ur Specific [place] (1.001-1.035) Urine Protein (NEGATIVE) mg/dL Urine Glucose (UA) (NEGATIVE) mg/dL Urine Ketones (NEGATIVE) mg/dL Urine Occult Blood (NEGATIVE) Urine Nitrite (NEGATIVE) Urine Bilirubin (NEGATIVE) Urine Urobilinogen (<2.0) EU/dL Ur Leukocyte Esterase (NEGATIVE) Urine RBC (0-2/HPF) Urine WBC (0-5/HPF) Ur Epithelial Cells (NONE-FEW) Urine Bacteria (NEGATIVE) Meds: Medications Generic Name Dose Route Start Last Admin Trade Name Freq PRN Reason Stop Dose Admin Sodium Chloride 10 ml 08/20/19 08:05 Saline Flush FLUSH ASDIRECTED PRN Keep Vein Open Sodium Chloride 2.5 ml 08/20/19 08:05 Saline Flush FLUSH ASDIRECTED PRN Keep Vein Open Sodium Chloride 10 ml 08/20/19 08:05 Normal Saline IV ASDIRECTED PRN IV Use Discontinued Medications Generic Name Dose Route Start Last Admin Trade Name Freq PRN Reason Stop Dose Admin Ceftriaxone Sodium/Dextrose 1 50 mls @ 100 mls/hr 08/20/19 08:39 08/20/19 09: 56 gm/ Premix IV 08/20/19 09:08 100 mls/hr ONETIME ONE Administration Sodium Chloride 1,000 mls @ 1,000 mls/hr 08/20/19 09:23 08/20/19 09:31 Normal Saline IV 08/20/19 10:22 1,000 mls/hr .Bolus ONE Administration Departure - Departure Time of Disposition: 12:36 Disposition: DC/Tfer to Acute Hospital 02 Clinical Impression: Sepsis due to undetermined organism, Acute cystitis with hematuria, Type [address] elevation - Discharge Information Referrals: PCP,Unobtain [Primary Care Provider] - Forms: ED Department Discharge Sepsis Event Note (ED) - Focused Exam Vital Signs: Vital Signs Temp Pulse Resp BP Pulse Ox 08/20/19 12:46 36.6 C 91 18 134/72 97 08/20/19 12:36 36.6 C 90 18 147/73 H 96 08/20/19 12:07 36.7 C 86 18 144/79 H 96 08/20/19 11:36 36.9 C 85 18 150/81 H 96 08/20/19 11:06 36.8 C 85 18 169/79 H 96 08/20/19 10:00 36.6 C 85 18 111/87 96 08/20/19 07:55 36.2 C 94 14 133/67 96 - My Orders Last 24 Hours: My Active Orders 08/20/19 08:05 EKG 12 Lead [EKG Documentation Completion] [RC] STAT Sodium Chloride 0.9% [Normal Saline] 10 ml IV ASDIRECTED PRN Sodium Chloride 0.9% [Saline Flush] 10 ml FLUSH ASDIRECTED PRN Sodium Chloride 0.9% [Saline Flush] 2.5 ml FLUSH ASDIRECTED PRN Peripheral IV Insertion Adult [OM.PC] Stat 08/20/19 08:06 Pulse Oximetry [RC] ASDIRECTED 08/20/19 08:13 CULTURE URINE [RM] Stat 08/20/19 08:35 CULTURE BLOOD [BC] Stat 08/20/19 09:05 Blood Culture x2 Reflex Set [OM.PC] Stat 08/20/19 09:23 EKG 12 Lead [EKG Documentation Completion] [RC] STAT CULTURE BLOOD [BC] Stat - Assessment/Plan Last 24 Hours: My Active Orders 08/20/19 08:05 EKG 12 Lead [EKG Documentation Completion] [RC] STAT Sodium Chloride 0.9% [Normal Saline] 10 ml IV ASDIRECTED PRN Sodium Chloride 0.9% [Saline Flush] 10 ml FLUSH ASDIRECTED PRN Sodium Chloride 0.9% [Saline Flush] 2.5 ml FLUSH ASDIRECTED PRN Peripheral IV Insertion Adult [OM.PC] Stat 08/20/19 08:06 Pulse Oximetry [RC] ASDIRECTED 08/20/19 08:13 CULTURE URINE [RM] Stat 08/20/19 08:35 CULTURE BLOOD [BC] Stat 08/20/19 09:05 Blood Culture x2 Reflex Set [OM.PC] Stat 08/20/19 09:23 EKG 12 Lead [EKG Documentation Completion] [RC] STAT CULTURE BLOOD [BC] Stat
[2019-08-20] MEDS ORDERED: cefTRIAXone 1 GM in Premix Bag 1 BAG IV ONE (08:39)
--- NOTE | 2019-08-20 09:02 | CT ---
Head CT Technique: Multiple axial sections through the brain were obtained. Intravenous contrast was not utilized. Comparison: Prior noncontrast head CT study of 08/23/18. Findings: Ventricles along with basal cisterns and sulci over convexities are moderately prominent. Low density is noted within the left parietal-occipital region compatible with old infarct. Old lacunar infarct is noted within the basal ganglia. Minimal small vessel ischemic demyelination change is noted. Vascular calcification is seen within the carotid siphon and within the vertebral vessels. No evidence of intracranial hemorrhage. No midline shift or mass effect is seen. Bone window settings were reviewed which shows no acute calvarial abnormality. Small retention cyst is noted within the inferior left maxillary sinus measuring 1.1 cm. Enlarged sella turcica is seen compatible with so-called empty sella which is chronic. Impression: 1. Senescent change and old infarcts as described above. 2. Minimal sinus finding believed to be chronic. 3. No acute intracranial abnormality is appreciated. Diagnostic code #2 Study was dictated in MDT
[2019-08-20 09:17] LABS: BLOOD UREA NITROGEN,BUN 21 mg/dL (7.0-18.0); CARBON DIOXIDE,CO2 24.4 mmol/L (21.0-32.0); CHLORIDE,CL 100 mmol/L (98-107); GLUCOSE RANDOM 132 mg/dL (74-106); LIPASE 130 U/L (73-393); POTASSIUM,K 4.3 mmol/L (3.5-5.1); SODIUM,NA 134 mmol/L (136-145)
[2019-08-20] MEDS ORDERED: Sodium Chloride 0.9% 1,000 ML IV ONE (09:23)
[2019-08-20] MEDS ORDERED: Sodium Chloride 0.9% 1,000 ML IV STA (10:35)
[2019-08-20 12:54] VITALS: BP 134/72; PULSE 91
== END 2019-08-20 13:35 ==
LOC: MW.ED 07:51
DX: A41.9 Sepsis, unspecified organism (principal); N30.01 Acute cystitis with hematuria; I21.A1 Myocardial infarction type 2; I10 Essential (primary) hypertension; E03.9 Hypothyroidism, unspecified; D64.9 Anemia, unspecified; F03.90 Unspecified dementia, unspecified severity, without behavioral disturbance, psychotic disturbance, mood disturbance, and anxiety; Z88.5 Allergy status to narcotic agent; Z88.8 Allergy status to other drugs, medicaments and biological substances; Z88.0 Allergy status to penicillin; Z91.041 Radiographic dye allergy status; Z79.899 Other long term (current) drug therapy; Z79.01 Long term (current) use of anticoagulants
CPT/HCPCS: 36415; 70450; 80053; 81001; 83605; 83690; 84484; 85025; 87040; 87086; 93005; 96365; 99285; J0696; J7030; 99284

== ENCOUNTER 2019-08-23 17:09 | Inpatient (IN) | payer MEDICARE, MEDICAID ==
[2019-08-23] MEDS ORDERED: Sodium Chloride 0.9% 10 ML Syringe FLUSH PRN (17:44)
[2019-08-23] MEDS ORDERED: Sodium Chloride 0.9% 2.5 ML Syringe FLUSH PRN (17:44)
[2019-08-23] MEDS ORDERED: Sodium Chloride 0.9% 1,000 ML IV ONE (17:44)
[2019-08-23] MEDS ORDERED: cefTRIAXone 1 GM in Sodium Chloride 0.9% 100 ML IV ONE (17:44)
--- NOTE | 2019-08-23 17:50 | EDM.PDOC ---
<NabeelHung adams Maribel - Last Filed: 08/23/19 18:48> ED HPI GENERAL MEDICAL PROBLEM - General Stated Complaint: ELEVATED HEARTRATE Time Seen by Provider: 08/23/19 17:31 - History of Present Illness INITIAL COMMENTS - FREE TEXT/NARRATIVE: History of present illness: Patient presents from senior care with fever and tachycardia. She was apparently recently admitted to the hospital on my not with a urinary tract infection presumable sepsis and she also has a history of supraventricular tachycardia and atrial fibrillation. snf center here because of continued tachycardia in the 150s as well as a fever of 104 reportedly at the senior care today. She is supposedly on some antibiotics for a urinary tract infection after discharge patient is demented and difficult historian. Review of systems: As per history of present illness and below otherwise all systems reviewed and negative. Past medical history: As per history of present illness and as reviewed below otherwise noncontributory. Surgical history: As per history of present illness and as reviewed below otherwise noncontributory. Social history: No reported history of drug or alcohol abuse. Family history: As per history of present illness and as reviewed below otherwise noncontributory. Physical exam: HEENT: Atraumatic, normocephalic, pupils reactive, negative for conjunctival pallor or scleral icterus, mucous membranes moist, throat clear, neck supple, nontender, trachea midline. Lungs: Clear to auscultation, breath sounds equal bilaterally, chest nontender. Heart: S1S2, regular, negative for clicks, rubs, or JVD. Cardiac 170s Abdomen: Soft, nondistended, nontender. Negative for masses or hepatosplenomegaly. Negative for costovertebral tenderness. Pelvis: Stable nontender. Genitourinary: Deferred. Rectal: Deferred. Extremities: Atraumatic, negative for cords or calf pain. Neurovascular unremarkable. Neuro: Awake, alert, oriented to person only. Cranial nerves II through XII unremarkable. Cerebellum unremarkable. Motor and sensory unremarkable throughout. Exam nonfocal. Diagnostics: [] Therapeutics: [] Impression: [] Plan: Patient will be treated for sepsis empirically as well as Identicard will be attempted to chemically cardiovert her SVT. [] Definitive disposition and diagnosis as appropriate pending reevaluation and review of above. - Related Data Allergies Allergy/AdvReac Type Severity Reaction Status Date / Time hydromorphone HCl Allergy Other Verified 08/24/19 01:17 [From Dilaudid] Iodinated Contrast Media Allergy Cannot Verified 08/24/19 01:17 [Iodinated Contrast Media - Remember IV Dye] meperidine Allergy Other Verified 08/24/19 01:17 meperidine HCl [From Demerol] Allergy Hallucinati Verified 08/24/19 01:17 ons metoclopramide Allergy Cannot Verified 08/24/19 01:17 Remember Penicillins Allergy Swelling Verified 08/24/19 01:17 propoxyphene HCl Allergy Hallucinati Verified 08/24/19 01:17 [From Darvon] ons Home Meds: Home Meds Iron Polysaccharide Complex [Poly-Iron] 150 mg PO DAILY 05/05/16 [History] Isosorbide Mononitrate [Imdur] 30 mg PO DAILY 05/05/16 [History] Potassium Chloride 40 meq PO DAILY 10/27/16 [History] Folic Acid 1 mg PO DAILY 06/01/18 [History] Levothyroxine [Synthroid] 200 mcg PO ACBREAKFAST 06/02/18 [History] Acetaminophen 500 mg PO TID 08/23/18 [History] Multivitamin [Daily Multiple Vitamin] 1 each PO DAILY 08/23/18 [History] Docusate Sodium [Colace] 100 mg PO BID 08/20/19 [History] Magnesium Hydroxide [Milk of Magnesia] 30 ml PO DAILY PRN 08/20/19 [History] polyethylene glycoL 3350 [MiraLAX] 17 gm PO BID 08/20/19 [History] Albuterol Sulfate 1 inh IH Q4H PRN 08/24/19 [History] Bisacodyl [Laxative Suppository] 1 supp.rect RC DAILY PRN 08/24/19 [History] Cefpodoxime Proxetil 5 ml PO BID 08/24/19 [History] Diphenhyd/Lidocaine/MagAl/Daniel [First-Mouthwash BLM Susp] 1 swab PO Q8H PRN 08/24/19 [History] Metoprolol Tartrate 25 mg PO BID 08/24/19 [History] atorvaSTATin [Lipitor] 40 mg PO BEDTIME 08/24/19 [History] Past Medical History - Past Health History Medical/Surgical History: Denies Medical/Surgical History HEENT History: Reports: Other (See Below) Other HEENT History: dysphagia Cardiovascular History: Reports: Hypertension, AL Other Cardiovascular History: lung nodule followed by CT Respiratory History: Reports: Bronchitis, Recurrent, Other (See Below) Other Respiratory History: On 07/16/[address] scan identified 6 mm nodule plural base. History of PE. Gastrointestinal History: Reports: Bowel Obstruction, GERD Genitourinary History: Reports: None CARDIOLOGY TEACHER History: Reports: Other CARDIOLOGY TEACHER History: Of breast cancer left side/left mastectomy Other Musculoskeletal History: repeated falls, abnormal gait and mobility, lack of coordination, generalized weakness, Neurological History: Reports: CVA Other Neuro History: stroke 1991 Psychiatric History: Reports: None Endocrine/Metabolic History: Reports: Hypothyroidism, Other (See Below) Other Endocrine/Metabolic History: none Hematologic History: Reports: Anemia, Anticoagulation Therapy Other Hematologic History: DVT and PE Immunologic History: Reports: Other (See Below) Other Immunologic History: lupus Oncologic (Cancer) History: Reports: Breast Other Oncologic History: left breast removed Dermatologic History: Reports: None - Infectious Disease History Infectious Disease History: Reports: Chicken Pox, Measles, Mumps - Past Surgical History Female Surgical History: Reports: Breast Biopsy, D&C, Hysterectomy, Mastectomy, Other (See Below), Tubal Ligation Social & Family History - Family History Family Medical History: Noncontributory - Caffeine Use Caffeine Use: Reports: Coffee, Tea Caffeine Use Comment: 3cups/day ED ROS GENERAL - Review of Systems Review Of Systems: See Below ED EXAM, GENERAL - Physical Exam Exam: See Below EKG INTERPRETATION EKG Interpretation Comments: EKG read interpreted by me is an SVT at 172 bpm no obvious ischemic changes Course - Vital Signs Text/Narrative:: Patient was initially noted to be in SVT and as we prepared to chemically cardiovert her with Identicard she spontaneously converted to sinus rhythm. Rate was in the upper 80s to lower 90s. Patient was empirically treated for sepsis she had a one-view portable chest which was read and interpreted by me as a left lower lobe pneumonia. Compared to a study approximately 1 year ago this is a new finding. At 6:45 PM I discussed case with Dr. Whelan he will accept the patient to [facility] telemetry for admission. Departure - Departure Disposition: Refer to Observation Clinical Impression: SVT (supraventricular tachycardia), Elevated troponin Pneumonia Qualifiers: Pneumonia type: due to unspecified organism Laterality: bilateral Lung location: lower lobe of lung Qualified Code(s): J18.9 - Pneumonia, unspecified organism - Discharge Information Sepsis Event Note (ED) - Evaluation Sepsis Screening Result: No Definite Risk <Tamiko Kumari - Last Filed: 08/24/19 04:33> Course - Vital Signs Text/Narrative:: Patient received in signout at [address] Adams. The patient had a pneumonia, possible UTI, and episode of SVT here in the emergency department with spontaneously self converted. Patient had an initial troponin which came back positive. This was discussed with the admitting physician, Dr. Whelan, who requested second, 2-hour troponin in case of the need for possible transfer. The second troponin was slightly more elevated than the first. This was discussed with the patient's daughter who reports that she would not want any intervention and that her mother is DNR and therefore no invasive measures are requested, therefore case was discussed w lida Whelan to avoid transfer as no intervention would be wanted anyway. He agrees with this plan therefore the patient will be admitted here. This would be the patient and the patient's daughters preference as well as the patient's daughter does not want her to be transferred to another facility Last Recorded V/S: Last Vital Signs Temp 97.1 F 08/23/19 23:50 Pulse 87 08/23/19 23:50 Resp 18 08/23/19 23:50 BP 134/65 08/23/19 23:50 Pulse Ox 97 08/23/19 23:50 - Orders/Labs/Meds Orders: Active Orders 24 hr Category Date Time Status Patient Status [ADT] Routine ADT 08/23/19 18:44 Active Cardiac Monitoring [RC] CONTINUOUS Care 08/23/19 17:45 Active Overnight Pulse Oximetry [RC] Click to Edit Care 08/23/19 17:45 Active CULTURE BLOOD [BC] Stat Lab 08/23/19 17:56 Results CULTURE BLOOD [BC] Stat Lab 08/23/19 18:05 Results Sodium Chloride 0.9% [Saline Flush] Med 08/23/19 17:44 Active 10 ml FLUSH ASDIRECTED PRN Sodium Chloride 0.9% [Saline Flush] Med 08/23/19 17:44 Active 2.5 ml FLUSH ASDIRECTED PRN Blood Culture x2 Reflex Set [OM.PC] Stat Oth 08/23/19 17:44 Ordered Pulse Oximetry Continuous Monitoring [OM.PC] Routine Ot 08/23/19 17:44 Ordered Saline Lock Insert [OM.PC] Stat Ot 08/23/19 17:44 Ordered Severe Sepsis Onset Time [OM.PC] Stat Ot 08/23/19 17:44 Ordered Medication Orders Albuterol (Ventolin Hfa) 0 gm INH Q4H PRN PRN Reason: Wheezing Aspirin (Aspirin) 300 mg RECTAL BEDTIME [facility] Last Admin: 08/23/19 19:28 Dose: 300 mg Documented by: SEAN Diltiazem HCl (Diltiazem) 20 mg IVPUSH Q3H PRN PRN Reason: Heart rate >130 Last Admin: 08/24/19 00:31 Dose: 20 mg Documented by: KATIA Heparin Sodium (Porcine) (Heparin Sodium) 5,000 units SUBCUT Q8H [facility] Last Admin: 08/23/19 23:32 Dose: 5,000 units Documented by: KATIA Levofloxacin/Dextrose 750 mg/ (Premix) 150 mls @ 100 mls/hr IV Q48H [facility] Last Admin: 08/23/19 23:22 Dose: 100 mls/hr Documented by: KATIA Meropenem 1 gm/ Sodium (Chloride) 100 mls @ 200 mls/hr IV Q12H [facility] Last Admin: 08/24/19 00:47 Dose: Not Given Documented by: KATIA Vancomycin HCl 0.75 gm/ Sodium (Chloride) 250 mls @ 166.667 mls/hr IV Q24H [facility] Sodium Chloride (Normal Saline) 1,000 mls @ 125 mls/hr IV ASDIRECTED [facility] Last Admin: 08/24/19 00:27 Dose: 125 mls/hr Documented by: KATIA Isosorbide Mononitrate (Imdur) 30 mg PO DAILY [facility] Levothyroxine Sodium (Synthroid) 100 mcg PO ACBREAKFAST [facility] Metoprolol Tartrate (Lopressor) 12.5 mg PO BID [facility] Sodium Chloride (Saline Flush) 10 ml FLUSH ASDIRECTED PRN PRN Reason: Keep Vein Open Sodium Chloride (Saline Flush) 2.5 ml FLUSH ASDIRECTED PRN PRN Reason: Keep Vein Open Vancomycin HCl (Pharmacy To Dose - Vancomycin) 1 dose .XX ASDIRECTED [facility] Labs: Laboratory Tests 08/23/19 08/23/19 08/23/19 Range/Units 18:14 18:14 18:14 WBC 15.24 H (4.0-11.0) K/uL RBC 3.09 L (4.30-5.90) M/uL Hgb 9.2 L (12.0-16.0) g/dL Hct 29.0 L (36.0-46.0) % MCV 93.9 (80.0-98.0) fL MCH 29.8 (27.0-32.0) pg MCHC 31.7 (31.0-37.0) g/dL RDW Std Deviation 58.1 (28.0-62.0) fl RDW Coeff of Avinash 17 H (11.0-15.0) % Plt Count 200 (150-400) K/uL MPV 9.10 (7.40-12.00) fL Neut % (Auto) 85.9 H (48.0-80.0) % Lymph % (Auto) 4.1 L (16.0-40.0) % [place] % (Auto) 8.4 (0.0-15.0) % Eos % (Auto) 1.5 (0.0-7.0) % Baso % (Auto) 0.1 (0.0-1.5) % Neut # (Auto) 13.1 H (1.4-5.7) K/uL Lymph # (Auto) 0.6 (0.6-2.4) K/uL [place] # (Auto) 1.3 H (0.0-0.8) K/uL Eos # (Auto) 0.2 (0.0-0.7) K/uL Baso # (Auto) 0.0 (0.0-0.1) K/uL Nucleated RBC % 0.5 /100WBC Nucleated RBCs # 0 K/uL INR 1.02 Lactate 1.1 (0.20-2.00) mmol/L Sodium (136-145) mmol/L Potassium (3.5-5.1) mmol/L Chloride (98-107) mmol/L Carbon Dioxide (21.0-32.0) mmol/L BUN (7.0-18.0) mg/dL Creatinine (0.6-1.0) mg/dL Est Cr Clr Drug Dosing mL/min Estimated GFR (MDRD) ml/min Glucose (74-106) mg/dL Calcium (8.5-10.1) mg/dL Total Bilirubin (0.2-1.0) mg/dL AST (15-37) IU/L ALT (14-63) IU/L Alkaline Phosphatase (46-116) U/L Troponin I (0.000-0.056) ng/mL Total Protein (6.4-8.2) g/dL Albumin (3.4-5.0) g/dL Globulin (2.6-4.0) g/dL Albumin/Globulin Ratio (0.9-1.6) Urine Color Urine Appearance Urine pH (5.0-8.0) Ur Specific [place] (1.001-1.035) Urine Protein (NEGATIVE) mg/dL Urine Glucose (UA) (NEGATIVE) mg/dL Urine Ketones (NEGATIVE) mg/dL Urine Occult Blood (NEGATIVE) Urine Nitrite (NEGATIVE) Urine Bilirubin (NEGATIVE) Urine Urobilinogen (<2.0) EU/dL Ur Leukocyte Esterase (NEGATIVE) Urine RBC (0-2/HPF) Urine WBC (0-5/HPF) Ur Epithelial Cells (NONE-FEW) Urine Bacteria (NEGATIVE) Urine Mucus (NONE-MOD) 08/23/19 08/23/19 Range/Units 18:14 18:20 WBC (4.0-11.0) K/uL RBC (4.30-5.90) M/uL Hgb (12.0-16.0) g/dL Hct (36.0-46.0) % MCV (80.0-98.0) fL MCH (27.0-32.0) pg MCHC (31.0-37.0) g/dL RDW Std Deviation (28.0-62.0) fl RDW Coeff of Avinash (11.0-15.0) % Plt Count (150-400) K/uL MPV (7.40-12.00) fL Neut % (Auto) (48.0-80.0) % Lymph % (Auto) (16.0-40.0) % [place] % (Auto) (0.0-15.0) % Eos % (Auto) (0.0-7.0) % Baso % (Auto) (0.0-1.5) % Neut # (Auto) (1.4-5.7) K/uL Lymph # (Auto) (0.6-2.4) K/uL [place] # (Auto) (0.0-0.8) K/uL Eos # (Auto) (0.0-0.7) K/uL Baso # (Auto) (0.0-0.1) K/uL Nucleated RBC % /100WBC Nucleated RBCs # K/uL INR Lactate (0.20-2.00) mmol/L Sodium 138 (136-145) mmol/L Potassium 4.5 (3.5-5.1) mmol/L Chloride 103 (98-107) mmol/L Carbon Dioxide 24.2 (21.0-32.0) mmol/L BUN 18 (7.0-18.0) mg/dL Creatinine 0.9 (0.6-1.0) mg/dL Est Cr Clr Drug Dosing 31.63 mL/min Estimated GFR (MDRD) 59.2 ml/min Glucose 128 H (74-106) mg/dL Calcium 8.2 L (8.5-10.1) mg/dL Total Bilirubin 0.1 L (0.2-1.0) mg/dL AST 165 H (15-37) IU/L ALT 160 H (14-63) IU/L Alkaline Phosphatase 118 H (46-116) U/L Troponin I 0.543 H* (0.000-0.056) ng/mL Total Protein 6.2 L (6.4-8.2) g/dL Albumin 1.2 L (3.4-5.0) g/dL Globulin 5.0 H (2.6-4.0) g/dL Albumin/Globulin Ratio 0.2 L (0.9-1.6) Urine Color YELLOW Urine Appearance SLT CLOUDY Urine pH 6.0 (5.0-8.0) Ur Specific [place] >= 1.030 (1.001-1.035) Urine Protein >=300 H (NEGATIVE) mg/dL Urine Glucose (UA) NEGATIVE (NEGATIVE) mg/dL Urine Ketones NEGATIVE (NEGATIVE) mg/dL Urine Occult Blood SMALL H (NEGATIVE) Urine Nitrite NEGATIVE (NEGATIVE) Urine Bilirubin NEGATIVE (NEGATIVE) Urine Urobilinogen 0.2 (<2.0) EU/dL Ur Leukocyte Esterase TRACE H (NEGATIVE) Urine RBC 0-2 (0-2/HPF) Urine WBC 110-120 (0-5/HPF) Ur Epithelial Cells FEW (NONE-FEW) Urine Bacteria 1+ H (NEGATIVE) Urine Mucus LIGHT (NONE-MOD) Meds: Medications Generic Name Dose Route Start Last Admin Trade Name Freq PRN Reason Stop Dose Admin Albuterol 0 gm 08/23/19 22:23 Ventolin Hfa INH Q4H PRN Wheezing Aspirin 300 mg 08/23/19 21:00 08/23/19 19:28 Aspirin RECTAL 300 mg BEDTIME AYESHA Administration Diltiazem HCl 20 mg 08/24/19 00:17 08/24/19 00:31 Diltiazem IVPUSH 20 mg Q3H PRN Administration Heart rate >130 Heparin Sodium (Porcine) 5,000 units 08/23/19 23:00 08/23/19 23:32 Heparin Sodium SUBCUT 5,000 units Q8H AYESHA Administration Levofloxacin/Dextrose 750 mg/ 150 mls @ 100 mls/hr 08/23/19 22:30 08/23/19 23:22 Premix IV 100 mls/hr Q48H AYESHA Administration Meropenem 1 gm/ Sodium 100 mls @ 200 mls/hr 08/23/19 22:30 08/24/19 00:47 Chloride IV Not Given Q12H AYESHA Vancomycin HCl 0.75 gm/ Sodium 250 mls @ 166.667 mls/hr 08/24/19 19:30 Chloride IV Q24H AYESHA Sodium Chloride 1,000 mls @ 125 mls/hr 08/24/19 00:30 08/24/19 00:27 Normal Saline IV 125 mls/hr ASDIRECTED AYESHA Administration Isosorbide Mononitrate 30 mg 08/24/19 09:00 Imdur PO DAILY AYESHA Levothyroxine Sodium 100 mcg 08/24/19 07:30 Synthroid PO ACBREAKFAST AYESHA Metoprolol Tartrate 12.5 mg 08/24/19 09:00 Lopressor PO BID AYESHA Sodium Chloride 10 ml 08/23/19 17:44 Saline Flush FLUSH ASDIRECTED PRN Keep Vein Open Sodium Chloride 2.5 ml 08/23/19 17:44 Saline Flush FLUSH ASDIRECTED PRN Keep Vein Open Vancomycin HCl 1 dose 08/23/19 22:30 Pharmacy To Dose - Vancomycin .XX ASDIRECTED AYESHA Discontinued Medications Generic Name Dose Route Start Last Admin Trade Name Sukhwinder PRN Reason Stop Dose Admin Adenosine 6 mg 08/23/19 17:47 08/23/19 18:40 Adenocard IVPUSH 08/23/19 17:48 Not Given NOW ONE Aspirin Confirm 08/23/19 18:58 08/23/19 19:45 Aspirin Administered 08/23/19 18:59 Not Given Dose 324 mg .ROUTE .STK-MED ONE Vancomycin HCl 1 gm/ Dextrose/ 250 mls @ 167 mls/hr 08/23/19 17:44 08/23/19 19:28 Water IV 08/23/19 19:13 Not Given ONETIME ONE Sodium Chloride 1,000 mls @ 999 mls/hr 08/23/19 17:44 08/23/19 17:54 Normal Saline IV 08/23/19 18:44 999 mls/hr .Bolus ONE Administration Ceftriaxone Sodium/Dextrose Confirm 08/23/19 18:00 08/23/19 18:47 Rocephin In Dextrose,Iso-Osm 1 Gm/50 Ml Administered 08/23/19 18:01 Not Given Dose 50 mls @ as directed .ROUTE .STK-MED ONE Ceftriaxone Sodium/Dextrose 1 50 mls @ 100 mls/hr 08/23/19 18:03 08/23/19 18:08 gm/ Premix IV 08/23/19 18:32 100 mls/hr ONETIME ONE Administration Vancomycin HCl 1 gm/ Sodium 250 mls @ 166 mls/hr 08/23/19 19:12 08/23/19 19:28 Chloride IV 08/23/19 20:42 166 mls/hr ONETIME ONE Administration Cefepime HCl 1 gm/ Premix 50 mls @ 100 mls/hr 08/23/19 22:30 IV Q8H [facility] Meropenem/Sodium Chloride Confirm 08/23/19 22:58 08/24/19 00:26 Meropenem Administered 08/23/19 22:59 100 mls/hr Dose Administration 50 mls @ as directed IV .STK-MED ONE Metoprolol Tartrate 5 mg 08/23/19 19:08 08/23/19 19:41 Lopressor IVPUSH 08/23/19 19:09 5 mg ONETIME ONE Administration Vancomycin HCl Confirm 08/23/19 19:03 08/23/19 19:39 Vancocin Administered 08/23/19 19:04 Not Given Dose 1 gm .ROUTE .STK-MED ONE - Re-Assessments/Exams Free Text/Narrative Re-Assessment/Exam: 08/23/19 20:15 Patient's daughterCarmela called in for an update. I discussed the patient's results and the possibility of transfer given the slightly increased troponin level. She reports that while they were admitted to [place] 2 days ago she discussed cardiac intervention with the hospitalist at that time and the 2 of them had come to an agreement/decision that they did not think the patient would do well with any intervention and as she is so frail and has such severe Alzheimer's they did not want to put her through any further invasive treatments. Transfer to [place] at that time because of the elevated troponin as well. Though the troponin today is elevated and slightly higher on the second than the first, the daughter prefers that the patient be admitted here to this hospital as she would not want any cardiac intervention for the patient in any case anyway, which is why the patient would be transferred to [place] as we do not have the capability for cardiac intervention at this hospital. Her daughter will come visit her now. I will discuss the case with Dr. Whelan, the admitting hospitalist. I also reassessed the patient, who is resting comfortably and does not respond well to questions, however according to her daughter this is her normal baseline. 08/23/19 20:33 Dr. Whelan called back. I discussed the patient's lab and the troponin which has gone from 0.546-0.560, as well as the daughter's preference to avoid intervention and to have the patient stay here. He is in agreement and accepts the patient to be admitted here at this time. Departure - Departure Time of Disposition: 20:34 Sepsis Event Note (ED) - Focused Exam Vital Signs: Vital Signs Temp Pulse Resp BP Pulse Ox 08/23/19 18:10 94 22 H 131/78 96 08/23/19 17:55 164 H 22 H 123/82 96 08/23/19 17:40 166 H 22 H 119/80 96 08/23/19 17:28 100.6 F 170 H 28 H 120/70 95
[2019-08-23] MEDS: Adenosine 6 MG/2 ML SDV IVPUSH ONE ×2 (17:54→18:40)
[2019-08-23] MEDS ORDERED: cefTRIAXone 1 GM in Premix Bag 1 BAG IV ONE (18:03)
[2019-08-23 18:39] LABS: CARBON DIOXIDE,CO2 24.2 mmol/L (21.0-32.0); POTASSIUM,K 4.5 mmol/L (3.5-5.1)
--- NOTE | 2019-08-23 18:47 | CR ---
Chest: Portable view of the chest was obtained. Comparison: Prior chest x-ray of 08/23/18. Diffuse increased lung markings are noted. Some of this appears chronic but findings of increased from prior study within the left base and right upper lung. Heart size is not enlarged. Tortuous thoracic aorta is seen. Impression: 1. Chronic increased lung markings. Increase change within the right upper and left lower lung are noted. Findings raise the possibility of superimposed areas of pneumonia. Please correlate if patient has infectious symptoms. Diagnostic code #3 This report was dictated in MDT
[2019-08-23] MEDS ORDERED: Aspirin 81 MG Tab.Chew ONE (18:58)
[2019-08-23] MEDS ORDERED: Vancomycin 1 GM AdvVial ONE (19:03)
[2019-08-23] MEDS ORDERED: Metoprolol Tartrate 5 MG/5 ML SDV IVPUSH ONE (19:08)
[2019-08-23] MEDS: Aspirin 300 MG Supp RECTAL SCH (19:28)
[2019-08-23] MEDS ORDERED: Meropenem 1 GM in Sodium Chloride 0.9% 100 ML IV SCH (22:30)
[2019-08-23] MEDS ORDERED: Cefepime 1 GM in Premix Bag 1 BAG IV SCH (22:30)
--- NOTE | 2019-08-23 22:56 | PCM.HP.2 ---
H&P History of Present Illness - General Date of Service: 08/23/19 Admit Problem/Dx: Admission Diagnosis/Problem Admission Diagnosis/Problem Pneumonia - History of Present Illness Initial Comments - Free Text/Narative: 88 yo female with pmh of ND, HTN, hypothyroidism, Stroke, PE, paroxysmal afib, and RA who was recently hospitalized in [place] for UTI. Today at [facility] she was noted to have fever and tachycardia. IN the ED she had SVT at rate of 170 which converted spontaneously. She was noted to have a pneumonia on CXR and positive UA. Daughter does not want transfer to [place] or aggressive/invasive care. She is agreeable to admitting here and treating with antibiotics. - Related Data Allergies/Adverse Reactions: Allergies Allergy/AdvReac Type Severity Reaction Status Date / Time hydromorphone HCl Allergy Other Verified 08/24/19 01:17 [From Dilaudid] Iodinated Contrast Media Allergy Cannot Verified 08/24/19 01:17 [Iodinated Contrast Media - Remember IV Dye] meperidine Allergy Other Verified 08/24/19 01:17 meperidine HCl [From Demerol] Allergy Hallucinati Verified 08/24/19 01:17 ons metoclopramide Allergy Cannot Verified 08/24/19 01:17 Remember Penicillins Allergy Swelling Verified 08/24/19 01:17 propoxyphene HCl Allergy Hallucinati Verified 08/24/19 01:17 [From Darvon] ons Home Medications: Home Meds Iron Polysaccharide Complex [Poly-Iron] 150 mg PO DAILY 05/05/16 [History] Isosorbide Mononitrate [Imdur] 30 mg PO DAILY 05/05/16 [History] Potassium Chloride 40 meq PO DAILY 10/27/16 [History] Folic Acid 1 mg PO DAILY 06/01/18 [History] Levothyroxine [Synthroid] 200 mcg PO ACBREAKFAST 06/02/18 [History] Acetaminophen 500 mg PO TID 08/23/18 [History] Multivitamin [Daily Multiple Vitamin] 1 each PO DAILY 08/23/18 [History] Docusate Sodium [Colace] 100 mg PO BID 08/20/19 [History] Magnesium Hydroxide [Milk of Magnesia] 30 ml PO DAILY PRN 08/20/19 [History] polyethylene glycoL 3350 [MiraLAX] 17 gm PO BID 08/20/19 [History] Albuterol Sulfate 1 inh IH Q4H PRN 08/24/19 [History] Bisacodyl [Laxative Suppository] 1 supp.rect RC DAILY PRN 08/24/19 [History] Cefpodoxime Proxetil 5 ml PO BID 08/24/19 [History] Diphenhyd/Lidocaine/MagAl/Daniel [First-Mouthwash BLM Susp] 1 swab PO Q8H PRN 08/24/19 [History] Metoprolol Tartrate 25 mg PO BID 08/24/19 [History] atorvaSTATin [Lipitor] 40 mg PO BEDTIME 08/24/19 [History] Past Medical History - Past Health History Medical/Surgical History: Denies Medical/Surgical History HEENT History: Reports: Other (See Below) Other HEENT History: dysphagia Cardiovascular History: Reports: Hypertension, ND Other Cardiovascular History: lung nodule followed by CT Respiratory History: Reports: Bronchitis, Recurrent, Other (See Below) Other Respiratory History: On 07/16/[address] scan identified 6 mm nodule plural base. History of PE. 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 OB/BYN History: Of breast cancer left side/left mastectomy Other Musculoskeletal History: repeated falls, abnormal gait and mobility, lack of coordination, generalized weakness, Neurological History: Reports: CVA Other Neuro History: stroke 1991 Psychiatric History: Reports: None Endocrine/Metabolic History: Reports: Hypothyroidism, Other (See Below) Other Endocrine/Metabolic History: none Hematologic History: Reports: Anemia, Anticoagulation Therapy Other Hematologic History: DVT and PE Immunologic History: Reports: Other (See Below) Other Immunologic History: lupus Oncologic (Cancer) History: Reports: Breast Other Oncologic History: left breast removed Dermatologic History: Reports: None - Infectious Disease History Infectious Disease History: Reports: Chicken Pox, Measles, Mumps - Past Surgical History Female Surgical History: Reports: Breast Biopsy, D&C, Hysterectomy, Mastectomy, Other (See Below), Tubal Ligation Social & Family History - Family History Family Medical History: Noncontributory - Tobacco Use Smoking Status *Q: Unknown Ever Smoked - Caffeine Use Caffeine Use: Reports: Other Caffeine Use Comment: pt is nonverbal. H&P Review of Systems - Review of Systems: Review Of Systems: Comprehensive ROS is negative, except as noted in HPI. Exam - Exam Exam: See Below - Vital Signs Vital Signs: Last Vital Signs Temp 36.4 C 08/23/19 21:40 Pulse 82 08/23/19 21:40 Resp 18 08/23/19 21:40 BP 135/66 08/23/19 21:40 Pulse Ox 95 08/23/19 21:40 Weight: 50.621 kg - Exam General: Sedated, Other (nonverbal) HEENT: Mucosa Moist & Griffin Lungs: Clear to Auscultation, Normal Respiratory Effort Cardiovascular: Regular Rate, Regular Rhythm GI/Abdominal Exam: Normal Bowel Sounds, Soft, Non-Tender Extremities: Non-Tender, No Pedal Edema Skin: Warm, Dry, Intact Neurological: No: Focal Deficit - Patient Data Lab Results Last 24 hrs: Laboratory Results - last 24 hr 08/23/19 08/23/19 08/23/19 Range/Units 18:14 18:14 18:14 WBC 15.24 H (4.0-11.0) K/uL RBC 3.09 L (4.30-5.90) M/uL Hgb 9.2 L (12.0-16.0) g/dL Hct 29.0 L (36.0-46.0) % MCV 93.9 (80.0-98.0) fL MCH 29.8 (27.0-32.0) pg MCHC 31.7 (31.0-37.0) g/dL RDW Std Deviation 58.1 (28.0-62.0) fl RDW Coeff of Avinash 17 H (11.0-15.0) % Plt Count 200 (150-400) K/uL MPV 9.10 (7.40-12.00) fL Neut % (Auto) 85.9 H (48.0-80.0) % Lymph % (Auto) 4.1 L (16.0-40.0) % Hud[place]eth % (Auto) 8.4 (0.0-15.0) % Eos % (Auto) 1.5 (0.0-7.0) % Baso % (Auto) 0.1 (0.0-1.5) % Neut # (Auto) 13.1 H (1.4-5.7) K/uL Lymph # (Auto) 0.6 (0.6-2.4) K/uL Hudspeth # (Auto) 1.3 H (0.0-0.8) K/uL Eos # (Auto) 0.2 (0.0-0.7) K/uL Baso # (Auto) 0.0 (0.0-0.1) K/uL Nucleated RBC % 0.5 /100WBC Nucleated RBCs # 0 K/uL INR 1.02 Lactate 1.1 (0.20-2.00) mmol/L Sodium (136-145) mmol/L Potassium (3.5-5.1) mmol/L Chloride (98-107) mmol/L Carbon Dioxide (21.0-32.0) mmol/L BUN (7.0-18.0) mg/dL Creatinine (0.6-1.0) mg/dL Est Cr Clr Drug Dosing mL/min Estimated GFR (MDRD) ml/min Glucose (74-106) mg/dL Calcium (8.5-10.1) mg/dL Total Bilirubin (0.2-1.0) mg/dL AST (15-37) IU/L ALT (14-63) IU/L Alkaline Phosphatase (46-116) U/L Troponin I (0.000-0.056) ng/mL Total Protein (6.4-8.2) g/dL Albumin (3.4-5.0) g/dL Globulin (2.6-4.0) g/dL Albumin/Globulin Ratio (0.9-1.6) Urine Color Urine Appearance Urine pH (5.0-8.0) Ur Specific Warren (1.001-1.035) Urine Protein (NEGATIVE) mg/dL Urine Glucose (UA) (NEGATIVE) mg/dL Urine Ketones (NEGATIVE) mg/dL Urine Occult Blood (NEGATIVE) Urine Nitrite (NEGATIVE) Urine Bilirubin (NEGATIVE) Urine Urobilinogen (<2.0) EU/dL Ur Leukocyte Esterase (NEGATIVE) Urine RBC (0-2/HPF) Urine WBC (0-5/HPF) Ur Epithelial Cells (NONE-FEW) Urine Bacteria (NEGATIVE) Urine Mucus (NONE-MOD) SARS Virus RNA (PCR) (NEGATIVE) 08/23/19 08/23/19 08/23/19 Range/Units 18:14 18:20 18:54 WBC (4.0-11.0) K/uL RBC (4.30-5.90) M/uL Hgb (12.0-16.0) g/dL Hct (36.0-46.0) % MCV (80.0-98.0) fL MCH (27.0-32.0) pg MCHC (31.0-37.0) g/dL RDW Std Deviation (28.0-62.0) fl RDW Coeff of Avinash (11.0-15.0) % Plt Count (150-400) K/uL MPV (7.40-12.00) fL Neut % (Auto) (48.0-80.0) % Lymph % (Auto) (16.0-40.0) % Hudspeth % (Auto) (0.0-15.0) % Eos % (Auto) (0.0-7.0) % Baso % (Auto) (0.0-1.5) % Neut # (Auto) (1.4-5.7) K/uL Lymph # (Auto) (0.6-2.4) K/uL Hudspeth # (Auto) (0.0-0.8) K/uL Eos # (Auto) (0.0-0.7) K/uL Baso # (Auto) (0.0-0.1) K/uL Nucleated RBC % /100WBC Nucleated RBCs # K/uL INR Lactate (0.20-2.00) mmol/L Sodium 138 (136-145) mmol/L Potassium 4.5 (3.5-5.1) mmol/L Chloride 103 (98-107) mmol/L Carbon Dioxide 24.2 (21.0-32.0) mmol/L BUN 18 (7.0-18.0) mg/dL Creatinine 0.9 (0.6-1.0) mg/dL Est Cr Clr Drug Dosing 31.63 mL/min Estimated GFR (MDRD) 59.2 ml/min Glucose 128 H (74-106) mg/dL Calcium 8.2 L (8.5-10.1) mg/dL Total Bilirubin 0.1 L (0.2-1.0) mg/dL AST 165 H (15-37) IU/L ALT 160 H (14-63) IU/L Alkaline Phosphatase 118 H (46-116) U/L Troponin I 0.543 H* (0.000-0.056) ng/mL Total Protein 6.2 L (6.4-8.2) g/dL Albumin 1.2 L (3.4-5.0) g/dL Globulin 5.0 H (2.6-4.0) g/dL Albumin/Globulin Ratio 0.2 L (0.9-1.6) Urine Color YELLOW Urine Appearance SLT CLOUDY Urine pH 6.0 (5.0-8.0) Ur Specific Warren >= 1.030 (1.001-1.035) Urine Protein >=300 H (NEGATIVE) mg/dL Urine Glucose (UA) NEGATIVE (NEGATIVE) mg/dL Urine Ketones NEGATIVE (NEGATIVE) mg/dL Urine Occult Blood SMALL H (NEGATIVE) Urine Nitrite NEGATIVE (NEGATIVE) Urine Bilirubin NEGATIVE (NEGATIVE) Urine Urobilinogen 0.2 (<2.0) EU/dL Ur Leukocyte Esterase TRACE H (NEGATIVE) Urine RBC 0-2 (0-2/HPF) Urine WBC 110-120 (0-5/HPF) Ur Epithelial Cells FEW (NONE-FEW) Urine Bacteria 1+ H (NEGATIVE) Urine Mucus LIGHT (NONE-MOD) SARS Virus RNA (PCR) NEGATIVE (NEGATIVE) 08/23/19 Range/Units 19:27 WBC (4.0-11.0) K/uL RBC (4.30-5.90) M/uL Hgb (12.0-16.0) g/dL Hct (36.0-46.0) % MCV (80.0-98.0) fL MCH (27.0-32.0) pg MCHC (31.0-37.0) g/dL RDW Std Deviation (28.0-62.0) fl RDW Coeff of Avinash (11.0-15.0) % Plt Count (150-400) K/uL MPV (7.40-12.00) fL Neut % (Auto) (48.0-80.0) % Lymph % (Auto) (16.0-40.0) % Hudspeth % (Auto) (0.0-15.0) % Eos % (Auto) (0.0-7.0) % Baso % (Auto) (0.0-1.5) % Neut # (Auto) (1.4-5.7) K/uL Lymph # (Auto) (0.6-2.4) K/uL Hudspeth # (Auto) (0.0-0.8) K/uL Eos # (Auto) (0.0-0.7) K/uL Baso # (Auto) (0.0-0.1) K/uL Nucleated RBC % /100WBC Nucleated RBCs # K/uL INR Lactate (0.20-2.00) mmol/L Sodium (136-145) mmol/L Potassium (3.5-5.1) mmol/L Chloride (98-107) mmol/L Carbon Dioxide (21.0-32.0) mmol/L BUN (7.0-18.0) mg/dL Creatinine (0.6-1.0) mg/dL Est Cr Clr Drug Dosing mL/min Estimated GFR (MDRD) ml/min Glucose (74-106) mg/dL Calcium (8.5-10.1) mg/dL Total Bilirubin (0.2-1.0) mg/dL AST (15-37) IU/L ALT (14-63) IU/L Alkaline Phosphatase (46-116) U/L Troponin I 0.560 H* (0.000-0.056) ng/mL Total Protein (6.4-8.2) g/dL Albumin (3.4-5.0) g/dL Globulin (2.6-4.0) g/dL Albumin/Globulin Ratio (0.9-1.6) Urine Color Urine Appearance Urine pH (5.0-8.0) Ur Specific Warren (1.001-1.035) Urine Protein (NEGATIVE) mg/dL Urine Glucose (UA) (NEGATIVE) mg/dL Urine Ketones (NEGATIVE) mg/dL Urine Occult Blood (NEGATIVE) Urine Nitrite (NEGATIVE) Urine Bilirubin (NEGATIVE) Urine Urobilinogen (<2.0) EU/dL Ur Leukocyte Esterase (NEGATIVE) Urine RBC (0-2/HPF) Urine WBC (0-5/HPF) Ur Epithelial Cells (NONE-FEW) Urine Bacteria (NEGATIVE) Urine Mucus (NONE-MOD) SARS Virus RNA (PCR) (NEGATIVE) Result Diagrams: 08/24/19 06:06 08/24/19 06:06 Artis Results Last 24 hrs: Microbiology 08/23/19 18:05 Anaerobic Blood Culture - Final Blood - Venous - Lab Draw 08/23/19 17:56 Anaerobic Blood Culture - Final Blood - Venous Sepsis Event Note - Evaluation Sepsis Screening Result: No Definite Risk - Focused Exam Vital Signs: Vital Signs Temp Temp Pulse Pulse Resp BP BP 08/23/19 21:40 36.4 C 82 18 135/66 08/23/19 20:25 79 19 136/76 08/23/19 20:05 37.7 C 78 19 132/76 08/23/19 19:50 77 19 127/70 08/23/19 19:41 92 140/70 08/23/19 19:38 92 19 140/70 08/23/19 18:10 94 22 H 131/78 08/23/19 17:55 164 H 22 H 123/82 08/23/19 17:40 166 H 22 H 119/80 08/23/19 17:28 38.1 C 170 H 28 H 120/70 Pulse Ox 08/23/19 21:40 95 08/23/19 20:25 96 08/23/19 20:05 96 08/23/19 19:50 95 08/23/19 19:41 08/23/19 19:38 97 08/23/19 18:10 96 08/23/19 17:55 96 08/23/19 17:40 96 08/23/19 17:28 95 Date Exam was Performed: 08/24/19 Time Exam was Performed: 12:49 Problem List Initiated/Reviewed/Updated: Yes Orders Last 24hrs: Active Orders 24 hr Category Date Time Status Patient Status [ADT] Routine ADT 08/23/19 18:44 Active Antiembolic Devices [RC] PER UNIT ROUTINE Care 08/23/19 22:47 Active Cardiac Monitoring [RC] CONTINUOUS Care 08/23/19 17:45 Active EKG 12 Lead [EKG Documentation Completion] [RC] STAT Care 08/23/19 18:22 Active Overnight Pulse Oximetry [RC] Click to Edit Care 08/23/19 17:45 Active Oxygen Therapy [RC] PRN Care 08/23/19 22:45 Active Telemetry Monitoring [Cardiac Monitoring] [RC] Q8H Care 08/23/19 19:38 Active Up ad Tessa [RC] ASDIRECTED Care 08/23/19 22:45 Active VTE/DVT Education [RC] PER UNIT ROUTINE Care 08/23/19 22:45 Active Vital Signs [RC] Q4H Care 08/23/19 22:45 Active Regular Diet [DIET] Diet 08/23/19 Breakfast Active BASIC METABOLIC PANEL,BMP [CHEM] AM Lab 08/24/19 05:11 Ordered CBC WITH AUTO DIFF [HEME] AM Lab 08/24/19 05:11 Ordered CULTURE BLOOD [BC] Stat Lab 08/23/19 17:56 Results CULTURE BLOOD [BC] Stat Lab 08/23/19 18:05 Results CULTURE URINE [RM] Routine Lab 08/23/19 18:20 Received MAGNESIUM [CHEM] AM Lab 08/24/19 05:11 Ordered PHOSPHORUS [CHEM] AM Lab 08/24/19 05:11 Ordered TROPONIN I [CHEM] AM Lab 08/24/19 05:11 Ordered TSH [CHEM] AM Lab 08/24/19 05:11 Ordered VANCOMYCIN TROUGH [CHEM] Timed Lab 08/27/19 18:30 Ordered Albuterol [Ventolin HFA] Med 08/23/19 22:23 Active 0 gm INH Q4H PRN Aspirin Med 08/23/19 21:00 Active 300 mg RECTAL BEDTIME Heparin Sodium Med 08/23/19 23:00 Ordered 5,000 units SUBCUT Q8H Isosorbide Mononitrate [Imdur] Med 08/24/19 09:00 Active 30 mg PO DAILY Levofloxacin/Dextrose 5%-Water [Levaquin in D5W 750 MG/ Med 08/23/19 22:30 Active 150 ML] 750 mg Premix Bag 1 bag IV Q48H Levothyroxine [Synthroid] Med 08/24/19 07:30 Active 100 mcg PO ACBREAKFAST Meropenem [Merrem] 1 gm Med 08/23/19 22:30 Active Sodium Chloride 0.9% [Normal Saline] 100 ml IV Q12H Metoprolol Tartrate [Lopressor] Med 08/24/19 09:00 Active 12.5 mg PO BID Pharmacy to Dose - Vancomycin Med 08/23/19 22:30 Pending 1 dose .XX ASDIRECTED Sodium Chloride 0.9% [Saline Flush] Med 08/23/19 17:44 Active 10 ml FLUSH ASDIRECTED PRN Sodium Chloride 0.9% [Saline Flush] Med 08/23/19 17:44 Active 2.5 ml FLUSH ASDIRECTED PRN Vancomycin 0.75 gm Med 08/24/19 19:30 Active Sodium Chloride 0.9% [Normal Saline] 250 ml IV Q24H Blood Culture x2 Reflex Set [OM.PC] Stat Ot 08/23/19 17:44 Ordered Obtain Past Medical Record [OM.PC] Routine Ot 08/23/19 22:45 Active Pulse Oximetry Continuous Monitoring [OM.PC] Routine Ot 08/23/19 17:44 Ordered Saline Lock Insert [OM.PC] Stat Ot 08/23/19 17:44 Ordered Sequential Compression Device [OM.PC] Per Unit Routine Ot 08/23/19 22:45 Ordered Severe Sepsis Onset Time [OM.PC] Stat Ot 08/23/19 17:44 Ordered Resuscitation Status Routine Resus Stat 08/23/19 22:45 Ordered Medication Orders Albuterol (Ventolin Hfa) 0 gm INH Q4H PRN PRN Reason: Wheezing Aspirin (Aspirin) 300 mg RECTAL BEDTIME AYESHA Last Admin: 08/23/19 19:28 Dose: 300 mg Documented by: SEAN Heparin Sodium (Porcine) (Heparin Sodium) 5,000 units SUBCUT Q8H [facility] Levofloxacin/Dextrose 750 mg/ (Premix) 150 mls @ 100 mls/hr IV Q48H AYESHA Meropenem 1 gm/ Sodium (Chloride) 100 mls @ 200 mls/hr IV Q12H AYESHA Vancomycin HCl 0.75 gm/ Sodium (Chloride) 250 mls @ 166.667 mls/hr IV Q24H [facility] Isosorbide Mononitrate (Imdur) 30 mg PO DAILY [facility] Levothyroxine Sodium (Synthroid) 100 mcg PO ACBREAKFAST [facility] Metoprolol Tartrate (Lopressor) 12.5 mg PO BID [facility] Sodium Chloride (Saline Flush) 10 ml FLUSH ASDIRECTED PRN PRN Reason: Keep Vein Open Sodium Chloride (Saline Flush) 2.5 ml FLUSH ASDIRECTED PRN PRN Reason: Keep Vein Open Vancomycin HCl (Pharmacy To Dose - Vancomycin) 1 dose .XX ASDIRECTED [facility] Assessment/Plan Comment:: 88 yo female admitted for sepsis 2/2 to pneumonia and UTI. 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
[2019-08-23] MEDS ORDERED: Meropenem Premix 50 ML IV ONE (22:58)
[2019-08-23] MEDS: Levofloxacin/Dextrose 5%-Water 750 MG in Premix Bag 1 BAG IV SCH (23:22)
[2019-08-23] MEDS: Heparin Sodium 5,000 Units/ML Vial SUBCUT SCH (23:32)
[2019-08-24] MEDS ORDERED: Diltiazem 25 MG/5 ML SDV IVPUSH PRN (00:17)
[2019-08-24] MEDS: Sodium Chloride 0.9% 1,000 ML IV SCH ×3 (00:27→22:13)
[2019-08-24 06:42] LABS: CARBON DIOXIDE,CO2 23.7 mmol/L (21.0-32.0); POTASSIUM,K 3.7 mmol/L (3.5-5.1)
[2019-08-24] MEDS: Heparin Sodium 5,000 Units/ML Vial SUBCUT SCH ×3 (06:44→23:32)
[2019-08-24] MEDS: Levothyroxine 100 MCG Tab PO SCH (06:44)
[2019-08-24] MEDS: Isosorbide Mononitrate 30 MG Tab.ER PO SCH (09:17)
[2019-08-24] MEDS: Metoprolol Tartrate 25 MG Tab PO SCH ×3 (09:17→22:13)
[2019-08-24] MEDS: Albuterol 8 GM Inhaler INH PRN ×2 (09:40→13:40)
[2019-08-24] MEDS: Meropenem Premix 1 GM in Premix Bag 1 BAG IV SCH ×2 (12:13→23:32)
[2019-08-24] MEDS ORDERED: Magnesium Sulfate/Water 2 GM in Premix Bag 1 BAG IV ONE (12:50)
--- NOTE | 2019-08-24 12:53 | PCM.PN ---
- General Info Date of Service: 08/24/19 - Review of Systems Systems Review Comment:: denies pain, denies shortness of breath. - Patient Data Vitals - Most Recent: Last Vital Signs Temp 38.2 C H 08/24/19 12:25 Pulse 100 08/24/19 12:25 Resp 18 08/24/19 12:25 BP 124/61 08/24/19 12:25 Pulse Ox 95 08/24/19 12:25 Weight - Most Recent: 50.621 kg I&O - Last 24 Hours: Intake & Output 08/23/19 08/24/19 08/24/19 22:59 06:59 14:59 Intake Total 550 Balance 550 Lab Results Last 24 Hours: Laboratory Results - last 24 hr 08/23/19 08/23/19 08/23/19 Range/Units 18:14 18:14 18:14 WBC 15.24 H (4.0-11.0) K/uL RBC 3.09 L (4.30-5.90) M/uL Hgb 9.2 L (12.0-16.0) g/dL Hct 29.0 L (36.0-46.0) % MCV 93.9 (80.0-98.0) fL MCH 29.8 (27.0-32.0) pg MCHC 31.7 (31.0-37.0) g/dL RDW Std Deviation 58.1 (28.0-62.0) fl RDW Coeff of Avinash 17 H (11.0-15.0) % Plt Count 200 (150-400) K/uL MPV 9.10 (7.40-12.00) fL Neut % (Auto) 85.9 H (48.0-80.0) % Lymph % (Auto) 4.1 L (16.0-40.0) % [place] % (Auto) 8.4 (0.0-15.0) % Eos % (Auto) 1.5 (0.0-7.0) % Baso % (Auto) 0.1 (0.0-1.5) % Neut # (Auto) 13.1 H (1.4-5.7) K/uL Lymph # (Auto) 0.6 (0.6-2.4) K/uL [place] # (Auto) 1.3 H (0.0-0.8) K/uL Eos # (Auto) 0.2 (0.0-0.7) K/uL Baso # (Auto) 0.0 (0.0-0.1) K/uL Nucleated RBC % 0.5 /100WBC Nucleated RBCs # 0 K/uL INR 1.02 Lactate 1.1 (0.20-2.00) mmol/L Sodium (136-145) mmol/L Potassium (3.5-5.1) mmol/L Chloride (98-107) mmol/L Carbon Dioxide (21.0-32.0) mmol/L BUN (7.0-18.0) mg/dL Creatinine (0.6-1.0) mg/dL Est Cr Clr Drug Dosing mL/min Estimated GFR (MDRD) ml/min Glucose (74-106) mg/dL Calcium (8.5-10.1) mg/dL Phosphorus (2.6-4.7) mg/dL Magnesium (1.8-2.4) mg/dL Total Bilirubin (0.2-1.0) mg/dL AST (15-37) IU/L ALT (14-63) IU/L Alkaline Phosphatase (46-116) U/L Troponin I (0.000-0.056) ng/mL Total Protein (6.4-8.2) g/dL Albumin (3.4-5.0) g/dL Globulin (2.6-4.0) g/dL Albumin/Globulin Ratio (0.9-1.6) TSH 3rd Generation (0.36-3.74) uIU/mL Urine Color Urine Appearance Urine pH (5.0-8.0) Ur Specific Mountain (1.001-1.035) Urine Protein (NEGATIVE) mg/dL Urine Glucose (UA) (NEGATIVE) mg/dL Urine Ketones (NEGATIVE) mg/dL Urine Occult Blood (NEGATIVE) Urine Nitrite (NEGATIVE) Urine Bilirubin (NEGATIVE) Urine Urobilinogen (<2.0) EU/dL Ur Leukocyte Esterase (NEGATIVE) Urine RBC (0-2/HPF) Urine WBC (0-5/HPF) Ur Epithelial Cells (NONE-FEW) Urine Bacteria (NEGATIVE) Urine Mucus (NONE-MOD) SARS Virus RNA (PCR) (NEGATIVE) 08/23/19 08/23/1908/22/20 Range/Units 18:14 18:20 18:54 WBC (4.0-11.0) K/uL RBC (4.30-5.90) M/uL Hgb (12.0-16.0) g/dL Hct (36.0-46.0) % MCV (80.0-98.0) fL MCH (27.0-32.0) pg MCHC (31.0-37.0) g/dL RDW Std Deviation (28.0-62.0) fl RDW Coeff of Avinash (11.0-15.0) % Plt Count (150-400) K/uL MPV (7.40-12.00) fL Neut % (Auto) (48.0-80.0) % Lymph % (Auto) (16.0-40.0) % [place] % (Auto) (0.0-15.0) % Eos % (Auto) (0.0-7.0) % Baso % (Auto) (0.0-1.5) % Neut # (Auto) (1.4-5.7) K/uL Lymph # (Auto) (0.6-2.4) K/uL [place] # (Auto) (0.0-0.8) K/uL Eos # (Auto) (0.0-0.7) K/uL Baso # (Auto) (0.0-0.1) K/uL Nucleated RBC % /100WBC Nucleated RBCs # K/uL INR Lactate (0.20-2.00) mmol/L Sodium 138 (136-145) mmol/L Potassium 4.5 (3.5-5.1) mmol/L Chloride 103 (98-107) mmol/L Carbon Dioxide 24.2 (21.0-32.0) mmol/L BUN 18 (7.0-18.0) mg/dL Creatinine 0.9 (0.6-1.0) mg/dL Est Cr Clr Drug Dosing 31.63 mL/min Estimated GFR (MDRD) 59.2 ml/min Glucose 128 H (74-106) mg/dL Calcium 8.2 L (8.5-10.1) mg/dL Phosphorus (2.6-4.7) mg/dL Magnesium (1.8-2.4) mg/dL Total Bilirubin 0.1 L (0.2-1.0) mg/dL AST 165 H (15-37) IU/L ALT 160 H (14-63) IU/L Alkaline Phosphatase 118 H (46-116) U/L Troponin I 0.543 H* (0.000-0.056) ng/mL Total Protein 6.2 L (6.4-8.2) g/dL Albumin 1.2 L (3.4-5.0) g/dL Globulin 5.0 H (2.6-4.0) g/dL Albumin/Globulin Ratio 0.2 L (0.9-1.6) TSH 3rd Generation (0.36-3.74) uIU/mL Urine Color YELLOW Urine Appearance SLT CLOUDY Urine pH 6.0 (5.0-8.0) Ur Specific [place] >= 1.030 (1.001-1.035) Urine Protein >=300 H (NEGATIVE) mg/dL Urine Glucose (UA) NEGATIVE (NEGATIVE) mg/dL Urine Ketones NEGATIVE (NEGATIVE) mg/dL Urine Occult Blood SMALL H (NEGATIVE) Urine Nitrite NEGATIVE (NEGATIVE) Urine Bilirubin NEGATIVE (NEGATIVE) Urine Urobilinogen 0.2 (<2.0) EU/dL Ur Leukocyte Esterase TRACE H (NEGATIVE) Urine RBC 0-2 (0-2/HPF) Urine WBC 110-120 (0-5/HPF) Ur Epithelial Cells FEW (NONE-FEW) Urine Bacteria 1+ H (NEGATIVE) Urine Mucus LIGHT (NONE-MOD) SARS Virus RNA (PCR) NEGATIVE (NEGATIVE) 08/23/19 08/24/19 08/24/19 Range/Units 19:27 06:06 06:06 WBC 15.04 H (4.0-11.0) K/uL RBC 3.16 L (4.30-5.90) M/uL Hgb 9.2 L (12.0-16.0) g/dL Hct 29.4 L (36.0-46.0) % MCV 93.0 (80.0-98.0) fL MCH 29.1 (27.0-32.0) pg MCHC 31.3 (31.0-37.0) g/dL RDW Std Deviation 56.7 (28.0-62.0) fl RDW Coeff of Avinash 17 H (11.0-15.0) % Plt Count 207 (150-400) K/uL MPV 9.00 (7.40-12.00) fL Neut % (Auto) 86.2 H (48.0-80.0) % Lymph % (Auto) 2.4 L (16.0-40.0) % [place] % (Auto) 10.2 (0.0-15.0) % Eos % (Auto) 1.1 (0.0-7.0) % Baso % (Auto) 0.1 (0.0-1.5) % Neut # (Auto) 13.0 H (1.4-5.7) K/uL Lymph # (Auto) 0.4 L (0.6-2.4) K/uL [place] # (Auto) 1.5 H (0.0-0.8) K/uL Eos # (Auto) 0.2 (0.0-0.7) K/uL Baso # (Auto) 0.0 (0.0-0.1) K/uL Nucleated RBC % 0.3 /100WBC Nucleated RBCs # 0 K/uL INR Lactate (0.20-2.00) mmol/L Sodium 138 (136-145) mmol/L Potassium 3.7 (3.5-5.1) mmol/L Chloride 105 (98-107) mmol/L Carbon Dioxide 23.7 (21.0-32.0) mmol/L BUN 16 (7.0-18.0) mg/dL Creatinine 0.9 (0.6-1.0) mg/dL Est Cr Clr Drug Dosing 31.63 mL/min Estimated GFR (MDRD) 59.2 ml/min Glucose 81 (74-106) mg/dL Calcium 7.5 L (8.5-10.1) mg/dL Phosphorus 2.7 (2.6-4.7) mg/dL Magnesium 1.7 L (1.8-2.4) mg/dL Total Bilirubin (0.2-1.0) mg/dL AST (15-37) IU/L ALT (14-63) IU/L Alkaline Phosphatase (46-116) U/L Troponin I 0.560 H* 0.534 H* (0.000-0.056) ng/mL Total Protein (6.4-8.2) g/dL Albumin (3.4-5.0) g/dL Globulin (2.6-4.0) g/dL Albumin/Globulin Ratio (0.9-1.6) TSH 3rd Generation 12.29 H (0.36-3.74) uIU/mL Urine Color Urine Appearance Urine pH (5.0-8.0) Ur Specific [place] (1.001-1.035) Urine Protein (NEGATIVE) mg/dL Urine Glucose (UA) (NEGATIVE) mg/dL Urine Ketones (NEGATIVE) mg/dL Urine Occult Blood (NEGATIVE) Urine Nitrite (NEGATIVE) Urine Bilirubin (NEGATIVE) Urine Urobilinogen (<2.0) EU/dL Ur Leukocyte Esterase (NEGATIVE) Urine RBC (0-2/HPF) Urine WBC (0-5/HPF) Ur Epithelial Cells (NONE-FEW) Urine Bacteria (NEGATIVE) Urine Mucus (NONE-MOD) SARS Virus RNA (PCR) (NEGATIVE) Artis Results Last 24 Hours: Microbiology 08/23/19 18:05 Anaerobic Blood Culture - Final Blood - Venous - Lab Draw 08/23/19 17:56 Anaerobic Blood Culture - Final Blood - Venous Med Orders - Current: Current Medications Albuterol (Ventolin Hfa) 0 gm INH Q4H PRN PRN Reason: Wheezing Last Admin: 08/24/19 09:40 Dose: 1 puff Documented by: Aspirin (Aspirin) 300 mg RECTAL BEDTIME [facility] Last Admin: 08/23/19 19:28 Dose: 300 mg Documented by: Diltiazem HCl (Diltiazem) 20 mg IVPUSH Q3H PRN PRN Reason: Heart rate >130 Last Admin: 08/24/19 00:31 Dose: 20 mg Documented by: Heparin Sodium (Porcine) (Heparin Sodium) 5,000 units SUBCUT Q8H [facility] Last Admin: 08/24/19 06:44 Dose: 5,000 units Documented by: Levofloxacin/Dextrose 750 mg/ (Premix) 150 mls @ 100 mls/hr IV Q48H [facility] Last Admin: 08/23/19 23:22 Dose: 100 mls/hr Documented by: Vancomycin HCl 0.75 gm/ Sodium (Chloride) 250 mls @ 166.667 mls/hr IV Q24H [facility] Sodium Chloride (Normal Saline) 1,000 mls @ 75 mls/hr IV ASDIRECTED [facility] Last Admin: 08/24/19 09:28 Dose: 125 mls/hr Documented by: Meropenem/Sodium Chloride 1 gm (/ Premix) 50 mls @ 100 mls/hr IV Q12H [facility] Last Admin: 08/24/19 12:13 Dose: 100 mls/hr Documented by: Magnesium Sulfate 2 gm/ Premix 50 mls @ 50 mls/hr IV ONETIME ONE Stop: 08/24/19 13:49 Isosorbide Mononitrate (Imdur) 30 mg PO DAILY [facility] Last Admin: 08/24/19 09:17 Dose: 30 mg Documented by: Levothyroxine Sodium (Synthroid) 100 mcg PO ACBREAKFAST [facility] Last Admin: 08/24/19 06:44 Dose: 100 mcg Documented by: Metoprolol Tartrate (Lopressor) 12.5 mg PO BID [facility] Last Admin: 08/24/19 09:17 Dose: 12.5 mg Documented by: Sodium Chloride (Saline Flush) 10 ml FLUSH ASDIRECTED PRN PRN Reason: Keep Vein Open Sodium Chloride (Saline Flush) 2.5 ml FLUSH ASDIRECTED PRN PRN Reason: Keep Vein Open Vancomycin HCl (Pharmacy To Dose - Vancomycin) 1 dose .XX ASDIRECTED [facility] Discontinued Medications Adenosine (Adenocard) 6 mg IVPUSH NOW ONE Stop: 08/23/19 17:48 Last Admin: 08/23/19 18:40 Dose: Not Given Documented by: Aspirin (Aspirin) Confirm Administered Dose 324 mg .ROUTE .STK-MED ONE Stop: 08/23/19 18:59 Last Admin: 08/23/19 19:45 Dose: Not Given Documented by: Vancomycin HCl 1 gm/ Dextrose/ (Water) 250 mls @ 167 mls/hr IV ONETIME ONE Stop: 08/23/19 19:13 Last Admin: 08/23/19 19:28 Dose: Not Given Documented by: Sodium Chloride (Normal Saline) 1,000 mls @ 999 mls/hr IV .Bolus ONE Stop: 08/23/19 18:44 Last Admin: 08/23/19 17:54 Dose: 999 mls/hr Documented by: Ceftriaxone Sodium/Dextrose (Rocephin In Dextrose,Iso-Osm 1 Gm/50 Ml) Confirm Administered Dose 50 mls @ as directed .ROUTE .STK-MED ONE Stop: 08/23/19 18:01 Last Admin: 08/23/19 18:47 Dose: Not Given Documented by: Ceftriaxone Sodium/Dextrose 1 (gm/ Premix) 50 mls @ 100 mls/hr IV ONETIME ONE Stop: 08/23/19 18:32 Last Admin: 08/23/19 18:08 Dose: 100 mls/hr Documented by: Vancomycin HCl 1 gm/ Sodium (Chloride) 250 mls @ 166 mls/hr IV ONETIME ONE Stop: 08/23/19 20:42 Last Admin: 08/23/19 19:28 Dose: 166 mls/hr Documented by: Cefepime HCl 1 gm/ Premix 50 mls @ 100 mls/hr IV Q8H [facility] Meropenem 1 gm/ Sodium (Chloride) 100 mls @ 200 mls/hr IV Q12H [facility] Last Admin: 08/24/19 00:47 Dose: Not Given Documented by: Meropenem/Sodium Chloride (Meropenem) Confirm Administered Dose 50 mls @ as directed IV .STK-MED ONE Stop: 08/23/19 22:59 Last Admin: 08/24/19 00:26 Dose: 100 mls/hr Documented by: Metoprolol Tartrate (Lopressor) 5 mg IVPUSH ONETIME ONE Stop: 08/23/19 19:09 Last Admin: 08/23/19 19:41 Dose: 5 mg Documented by: Vancomycin HCl (Vancocin) Confirm Administered Dose 1 gm .ROUTE .STK-MED ONE Stop: 08/23/19 19:04 Last Admin: 08/23/19 19:39 Dose: Not Given Documented by: - Exam General: No Acute Distress Lungs: Clear to Auscultation, Normal Respiratory Effort Cardiovascular: Regular Rate, Regular Rhythm GI/Abdominal Exam: Soft, No Distention Extremities: Non-Tender, No Pedal Edema Skin: Warm, Dry, Intact Neurological: No New Focal Deficit Sepsis Event Note - Evaluation Sepsis Screening Result: No Definite Risk - Focused Exam Vital Signs: Vital Signs Temp Pulse Pulse Resp BP BP Pulse Ox 08/24/19 12:25 38.2 C H 100 18 124/61 95 08/24/19 09:17 94 121/57 L 08/24/19 07:10 37.3 C 94 17 121/57 L 97 08/24/19 04:00 37.0 C 94 17 129/75 95 Date Exam was Performed: 08/24/19 Time Exam was Performed: 12:51 - Problem List Review Problem List Initiated/Reviewed/Updated: Yes - My Orders Last 24 Hours: My Active Orders 08/23/19 18:20 CULTURE URINE [RM] Routine 08/23/19 19:38 Telemetry Monitoring [Cardiac Monitoring] [RC] Q8H 08/23/19 22:23 Albuterol [Ventolin HFA] 0 gm INH Q4H PRN 08/23/19 22:30 Levofloxacin/Dextrose 5%-Water [Levaquin in D5W 750 MG/150 ML] 750 mg Premix Bag 1 bag IV Q48H Pharmacy to Dose - Vancomycin 1 dose .XX ASDIRECTED 08/23/19 22:45 Oxygen Therapy [RC] PRN Up ad Tessa [RC] ASDIRECTED VTE/DVT Education [RC] PER UNIT ROUTINE Vital Signs [RC] Q4H Obtain Past Medical Record [OM.PC] Routine Sequential Compression Device [OM.PC] Per Unit Routine Resuscitation Status Routine 08/23/19 22:47 Antiembolic Devices [RC] PER UNIT ROUTINE 08/23/19 23:00 Heparin Sodium 5,000 units SUBCUT Q8H 08/24/19 00:17 Diltiazem 20 mg IVPUSH Q3H PRN 08/24/19 00:30 Sodium Chloride 0.9% [Normal Saline] 1,000 ml IV ASDIRECTED 08/24/19 07:30 Levothyroxine [Synthroid] 100 mcg PO ACBREAKFAST 08/24/19 09:00 Isosorbide Mononitrate [Imdur] 30 mg PO DAILY Metoprolol Tartrate [Lopressor] 12.5 mg PO BID 08/24/19 12:30 Meropenem Premix [Meropenem] 1 gm Premix Bag 1 bag IV Q12H 08/24/19 12:50 Magnesium Sulfate/Water [Magnesium Sulfate in Water Premix] 2 gm Premix Bag 1 bag IV ONETIME 08/24/19 19:30 Vancomycin 0.75 gm Sodium Chloride 0.9% [Normal Saline] 250 ml IV Q24H - Plan Plan:: 88 yo female admitted for sepsis 2/2 to pneumonia and UTI. 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 patient is more alert today.
[2019-08-24] MEDS: Aspirin 300 MG Supp RECTAL SCH (22:13)
[2019-08-25] MEDS: Diltiazem 25 MG/5 ML SDV IVPUSH PRN ×4 (05:08→22:28)
[2019-08-25] MEDS: Heparin Sodium 5,000 Units/ML Vial SUBCUT SCH ×3 (06:01→23:07)
[2019-08-25] MEDS: Albuterol 8 GM Inhaler INH PRN ×3 (08:00→17:00)
[2019-08-25] MEDS: Levothyroxine 100 MCG Tab PO SCH (08:00)
[2019-08-25] MEDS: Isosorbide Mononitrate 30 MG Tab.ER PO SCH (08:34)
[2019-08-25] MEDS: Metoprolol Tartrate 25 MG Tab PO SCH ×2 (08:35→20:46)
[2019-08-25] MEDS: Sodium Chloride 0.9% 1,000 ML IV SCH (12:25)
--- NOTE | 2019-08-25 12:36 | PCM.PN ---
- General Info Date of Service: 08/25/19 - Review of Systems Systems Review Comment:: patient feels "okay" - Patient Data Vitals - Most Recent: Last Vital Signs Temp 37.2 C 08/25/19 12:00 Pulse 79 08/25/19 12:00 Resp 16 08/25/19 12:00 BP 101/56 L 08/25/19 12:00 Pulse Ox 95 08/25/19 12:00 Weight - Most Recent: 50.621 kg I&O - Last 24 Hours: Intake & Output 08/24/19 08/25/19 08/25/19 22:59 06:59 14:59 Intake Total 1475 742 Output Total 0 258 Balance 1475 484 Artis Results Last 24 Hours: Microbiology 08/23/19 18:20 Urine Culture - Final Urine, Clean Catch No Growth 08/23/19 18:05 Aerobic Blood Culture - Preliminary Blood - Venous - Lab Draw NO GROWTH AFTER 1 DAY Anaerobic Blood Culture - Final 08/23/19 17:56 Aerobic Blood Culture - Preliminary Blood - Venous NO GROWTH AFTER 1 DAY Anaerobic Blood Culture - Final Med Orders - Current: Current Medications Albuterol (Ventolin Hfa) 0 gm INH Q4H PRN PRN Reason: Wheezing Last Admin: 08/25/19 08:00 Dose: 1 puff Documented by: Aspirin (Aspirin) 300 mg RECTAL BEDTIME [facility] Last Admin: 08/24/19 22:13 Dose: 300 mg Documented by: Diltiazem HCl (Diltiazem) 10 mg IVPUSH Q3H PRN PRN Reason: Heart rate greater than 130 Last Admin: 08/25/19 08:22 Dose: 10 mg Documented by: Heparin Sodium (Porcine) (Heparin Sodium) 5,000 units SUBCUT Q8H [facility] Last Admin: 08/25/19 06:01 Dose: 5,000 units Documented by: Levofloxacin/Dextrose 750 mg/ (Premix) 150 mls @ 100 mls/hr IV Q48H [facility] Last Admin: 08/23/19 23:22 Dose: 100 mls/hr Documented by: Vancomycin HCl 0.75 gm/ Sodium (Chloride) 250 mls @ 166.667 mls/hr IV Q24H [facility] Last Admin: 08/24/19 18:47 Dose: 166.667 mls/hr Documented by: Sodium Chloride (Normal Saline) 1,000 mls @ 75 mls/hr IV ASDIRECTED [facility] Last Admin: 08/25/19 12:25 Dose: 75 mls/hr Documented by: Meropenem/Sodium Chloride 1 gm (/ Premix) 50 mls @ 100 mls/hr IV Q12H [facility] Last Admin: 08/24/19 23:32 Dose: 100 mls/hr Documented by: Isosorbide Mononitrate (Imdur) 30 mg PO DAILY [facility] Last Admin: 08/25/19 08:34 Dose: 30 mg Documented by: Levothyroxine Sodium (Synthroid) 100 mcg PO ACBREAKFAST [facility] Last Admin: 08/25/19 08:00 Dose: 100 mcg Documented by: Metoprolol Tartrate (Lopressor) 25 mg PO BID [facility] Last Admin: 08/25/19 08:35 Dose: 25 mg Documented by: Sodium Chloride (Saline Flush) 10 ml FLUSH ASDIRECTED PRN PRN Reason: Keep Vein Open Sodium Chloride (Saline Flush) 2.5 ml FLUSH ASDIRECTED PRN PRN Reason: Keep Vein Open Vancomycin HCl (Pharmacy To Dose - Vancomycin) 1 dose .XX ASDIRECTED [facility] Discontinued Medications Adenosine (Adenocard) 6 mg IVPUSH NOW ONE Stop: 08/23/19 17:48 Last Admin: 08/23/19 18:40 Dose: Not Given Documented by: Aspirin (Aspirin) Confirm Administered Dose 324 mg .ROUTE .STK-MED ONE Stop: 08/23/19 18:59 Last Admin: 08/23/19 19:45 Dose: Not Given Documented by: Diltiazem HCl (Diltiazem) 20 mg IVPUSH Q3H PRN PRN Reason: Heart rate >130 Stop: 08/25/19 00:10 Last Admin: 08/24/19 00:31 Dose: 20 mg Documented by: Vancomycin HCl 1 gm/ Dextrose/ (Water) 250 mls @ 167 mls/hr IV ONETIME ONE Stop: 08/23/19 19:13 Last Admin: 08/23/19 19:28 Dose: Not Given Documented by: Sodium Chloride (Normal Saline) 1,000 mls @ 999 mls/hr IV .Bolus ONE Stop: 08/23/19 18:44 Last Admin: 08/23/19 17:54 Dose: 999 mls/hr Documented by: Ceftriaxone Sodium/Dextrose (Rocephin In Dextrose,Iso-Osm 1 Gm/50 Ml) Confirm Administered Dose 50 mls @ as directed .ROUTE .STK-MED ONE Stop: 08/23/19 18:01 Last Admin: 08/23/19 18:47 Dose: Not Given Documented by: Ceftriaxone Sodium/Dextrose 1 (gm/ Premix) 50 mls @ 100 mls/hr IV ONETIME ONE Stop: 08/23/19 18:32 Last Admin: 08/23/19 18:08 Dose: 100 mls/hr Documented by: Vancomycin HCl 1 gm/ Sodium (Chloride) 250 mls @ 166 mls/hr IV ONETIME ONE Stop: 08/23/19 20:42 Last Admin: 08/23/19 19:28 Dose: 166 mls/hr Documented by: Cefepime HCl 1 gm/ Premix 50 mls @ 100 mls/hr IV Q8H [facility] Meropenem 1 gm/ Sodium (Chloride) 100 mls @ 200 mls/hr IV Q12H [facility] Last Admin: 08/24/19 00:47 Dose: Not Given Documented by: Meropenem/Sodium Chloride (Meropenem) Confirm Administered Dose 50 mls @ as directed IV .STK-MED ONE Stop: 08/23/19 22:59 Last Admin: 08/24/19 00:26 Dose: 100 mls/hr Documented by: Magnesium Sulfate 2 gm/ Premix 50 mls @ 50 mls/hr IV ONETIME ONE Stop: 08/24/19 13:49 Last Admin: 08/24/19 13:16 Dose: 50 mls/hr Documented by: Metoprolol Tartrate (Lopressor) 5 mg IVPUSH ONETIME ONE Stop: 08/23/19 19:09 Last Admin: 08/23/19 19:41 Dose: 5 mg Documented by: Metoprolol Tartrate (Lopressor) 12.5 mg PO BID [facility] Last Admin: 08/24/19 22:03 Dose: Not Given Documented by: Vancomycin HCl (Vancocin) Confirm Administered Dose 1 gm .ROUTE .STK-MED ONE Stop: 08/23/19 19:04 Last Admin: 08/23/19 19:39 Dose: Not Given Documented by: - Exam General: Cooperative, No Acute Distress Neck: Supple Lungs: Clear to Auscultation, Normal Respiratory Effort Cardiovascular: Regular Rate, Regular Rhythm Extremities: Non-Tender, No Pedal Edema Skin: Warm, Dry, Intact Neurological: No New Focal Deficit Sepsis Event Note - Evaluation Sepsis Screening Result: No Definite Risk - Focused Exam Vital Signs: Vital Signs Temp Pulse Pulse Resp BP BP Pulse Ox 08/25/19 12:00 37.2 C 79 16 101/56 L 95 08/25/19 08:35 86 116/60 08/25/19 08:34 116/60 08/25/19 08:30 81 16 96 08/25/19 08:20 142 H 16 116/60 97 08/25/19 07:50 36.8 C 87 16 113/48 L 96 08/25/19 06:01 81 108/48 L 08/25/19 05:13 85 115/61 08/25/19 04:07 37.2 C 80 14 123/65 95 Date Exam was Performed: 08/25/19 Time Exam was Performed: 12:35 - Problem List Review Problem List Initiated/Reviewed/Updated: Yes - My Orders Last 24 Hours: My Active Orders 08/24/19 12:30 Meropenem Premix [Meropenem] 1 gm Premix Bag 1 bag IV Q12H 08/24/19 19:30 Vancomycin 0.75 gm Sodium Chloride 0.9% [Normal Saline] 250 ml IV Q24H 08/24/19 22:15 Metoprolol Tartrate [Lopressor] 25 mg PO BID 08/25/19 00:09 Diltiazem 10 mg IVPUSH Q3H PRN 08/25/19 12:26 Admission Status [Patient Status] [ADT] Routine 08/25/19 12:34 BASIC METABOLIC PANEL,BMP [CHEM] Routine CBC WITH AUTO DIFF [HEME] Routine 08/26/19 05:11 BASIC METABOLIC PANEL,BMP [CHEM] AM CBC WITH AUTO DIFF [HEME] AM - Plan Plan:: 88 yo female admitted for sepsis 2/2 to pneumonia and UTI. 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
[2019-08-25 13:13] LABS: BLOOD UREA NITROGEN,BUN 15 mg/dL (7.0-18.0); CARBON DIOXIDE,CO2 22.7 mmol/L (21.0-32.0); CHLORIDE,CL 106 mmol/L (98-107); GLUCOSE RANDOM 154 mg/dL (74-106); POTASSIUM,K 3.2 mmol/L (3.5-5.1); SODIUM,NA 138 mmol/L (136-145)
[2019-08-25] MEDS: Meropenem Premix 1 GM in Premix Bag 1 BAG IV SCH (13:25)
[2019-08-25] MEDS: Pantoprazole 40 MG in Sodium Chloride 0.9% 10 ML IV SCH (20:45)
[2019-08-25] MEDS: Aspirin 300 MG Supp RECTAL SCH (20:47)
[2019-08-25] MEDS: Levofloxacin/Dextrose 5%-Water 750 MG in Premix Bag 1 BAG IV SCH (23:08)
[2019-08-26] MEDS: Meropenem Premix 1 GM in Premix Bag 1 BAG IV SCH (01:04)
[2019-08-26] MEDS: Albuterol 8 GM Inhaler INH PRN (05:55)
[2019-08-26] MEDS: Heparin Sodium 5,000 Units/ML Vial SUBCUT SCH ×3 (06:21→22:02)
[2019-08-26] MEDS: Albuterol/Ipratropium 3.0-0.5 MG/3 ML Neb Soln NEB PRN ×3 (06:29→21:59)
[2019-08-26 06:38] LABS: BLOOD UREA NITROGEN,BUN 13 mg/dL (7.0-18.0); CARBON DIOXIDE,CO2 21.7 mmol/L (21.0-32.0); CHLORIDE,CL 106 mmol/L (98-107); GLUCOSE RANDOM 87 mg/dL (74-106); POTASSIUM,K 3.4 mmol/L (3.5-5.1); SODIUM,NA 138 mmol/L (136-145)
[2019-08-26] MEDS: Diltiazem 25 MG/5 ML SDV IVPUSH PRN ×2 (07:04→11:24)
[2019-08-26] MEDS: Levothyroxine 100 MCG Tab PO SCH (07:49)
[2019-08-26] MEDS: Pantoprazole 40 MG in Sodium Chloride 0.9% 10 ML IV SCH ×2 (08:20→20:38)
[2019-08-26] MEDS: Metoprolol Tartrate 25 MG Tab PO SCH ×2 (08:22→20:52)
[2019-08-26] MEDS: Isosorbide Mononitrate 30 MG Tab.ER PO SCH (08:23)
[2019-08-26] MEDS: Sodium Chloride 0.9% 1,000 ML IV SCH ×2 (10:19→16:43)
[2019-08-26] MEDS ORDERED: Sodium Chloride 0.9% 500 ML IV SCH (11:45)
[2019-08-26] MEDS: Diltiazem IR 30 MG Tab PO SCH ×3 (12:23→23:43)
--- NOTE | 2019-08-26 12:34 | PCM.PN ---
- General Info Date of Service: 08/26/19 Admission Dx/Problem (Free Text): Admission Diagnosis/Problem Admission Diagnosis/Problem Pneumonia Subjective Update: severe dementia limits ROS. Appears non toxic and alert. - Patient Data Vitals - Most Recent: Last Vital Signs Temp 99.7 F 08/26/19 07:54 Pulse 148 H 08/26/19 08:22 Resp 18 08/26/19 07:54 BP 119/70 08/26/19 08:23 Pulse Ox 95 08/26/19 07:54 Weight - Most Recent: 50.621 kg I&O - Last 24 Hours: Intake & Output 08/25/19 08/26/19 08/26/19 22:59 06:59 14:59 Intake Total 1421 100 Output Total 0 Balance 1421 100 Lab Results Last 24 Hours: Laboratory Results - last 24 hr 08/25/19 08/25/19 08/25/19 Range/Units 12:45 12:45 13:50 WBC 12.12 H (4.0-11.0) K/uL RBC 2.66 L (4.30-5.90) M/uL Hgb 7.8 L (12.0-16.0) g/dL Hct 24.8 L (36.0-46.0) % MCV 93.2 (80.0-98.0) fL MCH 29.3 (27.0-32.0) pg MCHC 31.5 (31.0-37.0) g/dL RDW Std Deviation 58.4 (28.0-62.0) fl RDW Coeff of Avinash 17 H (11.0-15.0) % Plt Count 263 (150-400) K/uL MPV 9.30 (7.40-12.00) fL Neut % (Auto) 87.9 H (48.0-80.0) % Lymph % (Auto) 3.2 L (16.0-40.0) % Candler % (Auto) 7.1 (0.0-15.0) % Eos % (Auto) 1.7 (0.0-7.0) % Baso % (Auto) 0.1 (0.0-1.5) % Neut # (Auto) 10.7 H (1.4-5.7) K/uL Lymph # (Auto) 0.4 L (0.6-2.4) K/uL Candler # (Auto) 0.9 H (0.0-0.8) K/uL Eos # (Auto) 0.2 (0.0-0.7) K/uL Baso # (Auto) 0.0 (0.0-0.1) K/uL Nucleated RBC % 0.4 /100WBC Nucleated RBCs # 0 K/uL Sodium 138 (136-145) mmol/L Potassium 3.2 L (3.5-5.1) mmol/L Chloride 106 (98-107) mmol/L Carbon Dioxide 22.7 (21.0-32.0) mmol/L BUN 15 (7.0-18.0) mg/dL Creatinine 0.8 (0.6-1.0) mg/dL Est Cr Clr Drug Dosing 35.59 mL/min Estimated GFR (MDRD) > 60.0 ml/min Glucose 154 H (74-106) mg/dL Calcium 7.2 L (8.5-10.1) mg/dL Magnesium (1.8-2.4) mg/dL Blood Type A POSITIVE Antibody Screen NEGATIVE Crossmatch See Detail 08/25/19 08/26/19 08/26/19 Range/Units 20:30 06:07 06:07 WBC 9.29 (4.0-11.0) K/uL RBC 3.80 L (4.30-5.90) M/uL Hgb 9.6 L 10.7 L (12.0-16.0) g/dL Hct 29.7 L 33.8 L (36.0-46.0) % MCV 88.9 (80.0-98.0) fL MCH 28.2 (27.0-32.0) pg MCHC 31.7 (31.0-37.0) g/dL RDW Std Deviation 62.1 H (28.0-62.0) fl RDW Coeff of Avinash 19 H (11.0-15.0) % Plt Count 280 (150-400) K/uL MPV 8.80 (7.40-12.00) fL Neut % (Auto) 82.6 H (48.0-80.0) % Lymph % (Auto) 4.6 L (16.0-40.0) % Candler % (Auto) 10.4 (0.0-15.0) % Eos % (Auto) 2.3 (0.0-7.0) % Baso % (Auto) 0.1 (0.0-1.5) % Neut # (Auto) 7.7 H (1.4-5.7) K/uL Lymph # (Auto) 0.4 L (0.6-2.4) K/uL Candler # (Auto) 1.0 H (0.0-0.8) K/uL Eos # (Auto) 0.2 (0.0-0.7) K/uL Baso # (Auto) 0.0 (0.0-0.1) K/uL Nucleated RBC % 0.4 /100WBC Nucleated RBCs # 0 K/uL Sodium 138 (136-145) mmol/L Potassium 3.4 L (3.5-5.1) mmol/L Chloride 106 (98-107) mmol/L Carbon Dioxide 21.7 (21.0-32.0) mmol/L BUN 13 (7.0-18.0) mg/dL Creatinine 0.7 (0.6-1.0) mg/dL Est Cr Clr Drug Dosing 40.67 mL/min Estimated GFR (MDRD) > 60.0 ml/min Glucose 87 (74-106) mg/dL Calcium 7.5 L (8.5-10.1) mg/dL Magnesium (1.8-2.4) mg/dL Blood Type Antibody Screen Crossmatch 08/26/19 Range/Units 06:07 WBC (4.0-11.0) K/uL RBC (4.30-5.90) M/uL Hgb (12.0-16.0) g/dL Hct (36.0-46.0) % MCV (80.0-98.0) fL MCH (27.0-32.0) pg MCHC (31.0-37.0) g/dL RDW Std Deviation (28.0-62.0) fl RDW Coeff of Avinash (11.0-15.0) % Plt Count (150-400) K/uL MPV (7.40-12.00) fL Neut % (Auto) (48.0-80.0) % Lymph % (Auto) (16.0-40.0) % Candler % (Auto) (0.0-15.0) % Eos % (Auto) (0.0-7.0) % Baso % (Auto) (0.0-1.5) % Neut # (Auto) (1.4-5.7) K/uL Lymph # (Auto) (0.6-2.4) K/uL Candler # (Auto) (0.0-0.8) K/uL Eos # (Auto) (0.0-0.7) K/uL Baso # (Auto) (0.0-0.1) K/uL Nucleated RBC % /100WBC Nucleated RBCs # K/uL Sodium (136-145) mmol/L Potassium (3.5-5.1) mmol/L Chloride (98-107) mmol/L Carbon Dioxide (21.0-32.0) mmol/L BUN (7.0-18.0) mg/dL Creatinine (0.6-1.0) mg/dL Est Cr Clr Drug Dosing mL/min Estimated GFR (MDRD) ml/min Glucose (74-106) mg/dL Calcium (8.5-10.1) mg/dL Magnesium 2.0 (1.8-2.4) mg/dL Blood Type Antibody Screen Crossmatch Artis Results Last 24 Hours: Microbiology 08/26/19 00:35 Stool Occult Blood (ARTIS) - Final Stool / Feces 08/23/19 18:05 Aerobic Blood Culture - Preliminary Blood - Venous - Lab Draw NO GROWTH AFTER 2 DAYS Anaerobic Blood Culture - Final 08/23/19 17:56 Aerobic Blood Culture - Preliminary Blood - Venous NO GROWTH AFTER 2 DAYS Anaerobic Blood Culture - Final 08/23/19 18:20 Urine Culture - Final Urine, Clean Catch No Growth Med Orders - Current: Current Medications Albuterol (Ventolin Hfa) 0 gm INH Q4H PRN PRN Reason: Wheezing Last Admin: 08/26/19 05:55 Dose: 1 puff Documented by: Albuterol/Ipratropium (Duoneb 3.0-0.5 Mg/3 Ml) 3 ml NEB Q4HRRT PRN PRN Reason: Wheezing Last Admin: 08/26/19 06:29 Dose: 3 ml Documented by: Aspirin (Aspirin) 300 mg RECTAL BEDTIME AYESHA Last Admin: 08/25/19 20:47 Dose: 300 mg Documented by: Diltiazem HCl (Diltiazem) 10 mg IVPUSH Q3H PRN PRN Reason: Heart rate greater than 130 Last Admin: 08/26/19 11:24 Dose: 10 mg Documented by: Diltiazem HCl (Cardizem) 30 mg PO Q6HR [facility], [facility] Last Admin: 08/26/19 12:23 Dose: 30 mg Documented by: Heparin Sodium (Porcine) (Heparin Sodium) 5,000 units SUBCUT Q8H [facility], [facility]1983 Last Admin: 08/26/19 06:21 Dose: 5,000 units Documented by: Levofloxacin/Dextrose 750 mg/ (Premix) 150 mls @ 100 mls/hr IV Q48H [facility], [facility]1983 Last Admin: 08/25/19 23:08 Dose: 100 mls/hr Documented by: Vancomycin HCl 0.75 gm/ Sodium (Chloride) 250 mls @ 166.667 mls/hr IV Q24H [facility]1983 Last Admin: 08/25/19 20:08 Dose: 166.667 mls/hr Documented by: Sodium Chloride (Normal Saline) 1,000 mls @ 75 mls/hr IV ASDIRECTED [facility], [facility]1983 Last Admin: 08/26/19 10:19 Dose: 75 mls/hr Documented by: Pantoprazole Sodium 40 mg/ (Sodium Chloride) 10 mls @ 300 mls/hr IV Q12H [facility] Last Admin: 08/26/19 08:20 Dose: 300 mls/hr Documented by: Sodium Chloride (Normal Saline) 500 mls @ 999 mls/hr IV .BOLUS [facility], [facility]1983 Isosorbide Mononitrate (Imdur) 30 mg PO DAILY [facility] Last Admin: 08/26/19 08:23 Dose: 30 mg Documented by: Levothyroxine Sodium (Synthroid) 200 mcg PO ACBREAKFAST [facility] Last Admin: 08/26/19 07:49 Dose: 200 mcg Documented by: Metoprolol Tartrate (Lopressor) 25 mg PO BID [facility] Last Admin: 08/26/19 08:22 Dose: 25 mg Documented by: Sodium Chloride (Saline Flush) 10 ml FLUSH ASDIRECTED PRN PRN Reason: Keep Vein Open Sodium Chloride (Saline Flush) 2.5 ml FLUSH ASDIRECTED PRN PRN Reason: Keep Vein Open Vancomycin HCl (Pharmacy To Dose - Vancomycin) 1 dose .XX ASDIRECTED AYESHA Discontinued Medications Adenosine (Adenocard) 6 mg IVPUSH NOW ONE Stop: 08/23/19 17:48 Last Admin: 08/23/19 18:40 Dose: Not Given Documented by: Aspirin (Aspirin) Confirm Administered Dose 324 mg .ROUTE .STK-MED ONE Stop: 08/23/19 18:59 Last Admin: 08/23/19 19:45 Dose: Not Given Documented by: Diltiazem HCl (Diltiazem) 20 mg IVPUSH Q3H PRN PRN Reason: Heart rate >130 Stop: 08/25/19 00:10 Last Admin: 08/24/19 00:31 Dose: 20 mg Documented by: Vancomycin HCl 1 gm/ Dextrose/ (Water) 250 mls @ 167 mls/hr IV ONETIME ONE Stop: 08/23/19 19:13 Last Admin: 08/23/19 19:28 Dose: Not Given Documented by: Sodium Chloride (Normal Saline) 1,000 mls @ 999 mls/hr IV .Bolus ONE Stop: 08/23/19 18:44 Last Admin: 08/23/19 17:54 Dose: 999 mls/hr Documented by: Ceftriaxone Sodium/Dextrose (Rocephin In Dextrose,Iso-Osm 1 Gm/50 Ml) Confirm Administered Dose 50 mls @ as directed .ROUTE .STK-MED ONE Stop: 08/23/19 18:01 Last Admin: 08/23/19 18:47 Dose: Not Given Documented by: Ceftriaxone Sodium/Dextrose 1 (gm/ Premix) 50 mls @ 100 mls/hr IV ONETIME ONE Stop: 08/23/19 18:32 Last Admin: 08/23/19 18:08 Dose: 100 mls/hr Documented by: Vancomycin HCl 1 gm/ Sodium (Chloride) 250 mls @ 166 mls/hr IV ONETIME ONE Stop: 08/23/19 20:42 Last Admin: 08/23/19 19:28 Dose: 166 mls/hr Documented by: Cefepime HCl 1 gm/ Premix 50 mls @ 100 mls/hr IV Q8H AYESHA Meropenem 1 gm/ Sodium (Chloride) 100 mls @ 200 mls/hr IV Q12H AYESHA Last Admin: 08/24/19 00:47 Dose: Not Given Documented by: Meropenem/Sodium Chloride (Meropenem) Confirm Administered Dose 50 mls @ as directed IV .STK-MED ONE Stop: 08/23/19 22:59 Last Admin: 08/24/19 00:26 Dose: 100 mls/hr Documented by: Meropenem/Sodium Chloride 1 gm (/ Premix) 50 mls @ 100 mls/hr IV Q12H [facility] Last Admin: 08/26/19 01:04 Dose: 100 mls/hr Documented by: Magnesium Sulfate 2 gm/ Premix 50 mls @ 50 mls/hr IV ONETIME ONE Stop: 08/24/19 13:49 Last Admin: 08/24/19 13:16 Dose: 50 mls/hr Documented by: Levothyroxine Sodium (Synthroid) 100 mcg PO ACBREAKFAST [facility] Last Admin: 08/25/19 08:00 Dose: 100 mcg Documented by: Metoprolol Tartrate (Lopressor) 5 mg IVPUSH ONETIME ONE Stop: 08/23/19 19:09 Last Admin: 08/23/19 19:41 Dose: 5 mg Documented by: Metoprolol Tartrate (Lopressor) 12.5 mg PO BID [facility] Last Admin: 08/24/19 22:03 Dose: Not Given Documented by: Vancomycin HCl (Vancocin) Confirm Administered Dose 1 gm .ROUTE .STK-MED ONE Stop: 08/23/19 19:04 Last Admin: 08/23/19 19:39 Dose: Not Given Documented by: - Exam General: Alert, Cooperative, No Acute Distress. No: Oriented Lungs: Clear to Auscultation, Normal Respiratory Effort Cardiovascular: Tachycardia GI/Abdominal Exam: Normal Bowel Sounds, Soft, Non-Tender Extremities: Normal Inspection, Normal Range of Motion, Non-Tender, No Pedal Edema Wound/Incisions: Other (picking at chest, with open sores and all different stages of healing.) Psy/Mental Status: Alert, Normal Affect, Normal Mood Sepsis Event Note - Evaluation Sepsis Screening Result: No Definite Risk - Focused Exam Vital Signs: Vital Signs Temp Pulse Pulse Resp BP BP Pulse Ox 08/26/19 08:23 119/70 08/26/19 08:22 148 H 119/70 08/26/19 07:54 99.7 F 148 H 18 119/70 95 08/26/19 04:00 100.4 F 87 20 124/82 94 L 06/29/20 00:37 98.1 F 86 20 121/71 93 L Date Exam was Performed: 08/26/19 Time Exam was Performed: 13:11 - Problem List & Annotations (1) Elevated troponin SNOMED Code(s): 085865527, 639814796, 020698144 Code(s): R79.89 - OTHER SPECIFIED ABNORMAL FINDINGS OF BLOOD CHEMISTRY Status: Acute Current Visit: Yes (2) Pneumonia SNOMED Code(s): 817540134 Code(s): J18.9 - PNEUMONIA, UNSPECIFIED ORGANISM Status: Acute Current Visit: Yes Qualifiers: Pneumonia type: due to unspecified organism Laterality: bilateral Lung location: lower lobe of lung Qualified Code(s): J18.9 - Pneumonia, unspecified organism (3) SVT (supraventricular tachycardia) SNOMED Code(s): 0099056 Code(s): I47.1 - SUPRAVENTRICULAR TACHYCARDIA Status: Acute Current Visit: Yes (4) Acute cystitis with hematuria SNOMED Code(s): 34810034, 98753477 Code(s): N30.01 - ACUTE CYSTITIS WITH HEMATURIA Status: Acute Current Visit: No (5) Dementia SNOMED Code(s): 96005362 Code(s): F03.90 - UNSPECIFIED DEMENTIA WITHOUT BEHAVIORAL DISTURBANCE Status: Chronic Priority: High Current Visit: No Qualifiers: Dementia type: vascular dementia Dementia behavioral disturbance: without behavioral disturbance Qualified Code(s): F01.50 - Vascular dementia without behavioral disturbance - Problem List Review Problem List Initiated/Reviewed/Updated: Yes - My Orders Last 24 Hours: My Active Orders 08/26/19 11:45 Sodium Chloride 0.9% [Normal Saline] 500 ml IV .BOLUS 08/26/19 12:00 Diltiazem IR [Cardizem] 30 mg PO Q6HR - Plan Plan:: 88 yo female admitted for sepsis 2/2 to pneumonia and UTI. 1. Severe community acquired with risk factors for MRSA and pseudomonas - Will stop Meropenem. Continue Levaquin and Vancomycin for now - BC negative x 1 day - No oxygen needed - Nebs PRN - No aggressive treatment as family requests - UC returned negative for growth. No UTI 2. SVT possible aflutter: - Start Diltiazem 30 mg Q6 hours and monitor - Continue metoprolol, may need to increase to 50 BID - Monitor on telemetry 3. Elevated troponin: - likely demand ischemia - Family does not want aggressive management. VTE prophylaxis: Heparin Dispo: 2-3 days
[2019-08-26] MEDS: Aspirin 300 MG Supp RECTAL SCH (20:53)
[2019-08-27] MEDS: Albuterol/Ipratropium 3.0-0.5 MG/3 ML Neb Soln NEB PRN ×2 (05:56→11:49)
[2019-08-27 06:16] LABS: BLOOD UREA NITROGEN,BUN 9 mg/dL (7.0-18.0); CARBON DIOXIDE,CO2 21.8 mmol/L (21.0-32.0); CHLORIDE,CL 106 mmol/L (98-107); GLUCOSE RANDOM 81 mg/dL (74-106); POTASSIUM,K 3.4 mmol/L (3.5-5.1); SODIUM,NA 138 mmol/L (136-145)
[2019-08-27] MEDS: Diltiazem IR 30 MG Tab PO SCH (06:16)
[2019-08-27] MEDS: Heparin Sodium 5,000 Units/ML Vial SUBCUT SCH (06:17)
[2019-08-27] MEDS: Sodium Chloride 0.9% 1,000 ML IV SCH (06:27)
[2019-08-27] MEDS: Levothyroxine 100 MCG Tab PO SCH (06:29)
[2019-08-27] MEDS ORDERED: Magnesium Sulfate/Water 2 GM in Premix Bag 1 BAG IV ONE (08:03)
[2019-08-27] MEDS ORDERED: Potassium Chloride 20 MEQ Tab.ER PO ONE (08:03)
[2019-08-27] MEDS: Pantoprazole 40 MG in Sodium Chloride 0.9% 10 ML IV SCH (08:30)
[2019-08-27] MEDS: Metoprolol Tartrate 25 MG Tab PO SCH (08:31)
[2019-08-27] MEDS: Isosorbide Mononitrate 30 MG Tab.ER PO SCH (08:32)
[2019-08-27] MEDS ORDERED: Diltiazem 120 MG Cap.CD PO SCH (09:45)
--- NOTE | 2019-08-27 10:28 | PCM.DCSUM1 ---
Discharge Summary - Hospital Course Brief History: 88 yo female with pmh of [place], HTN, hypothyroidism, Stroke, PE, paroxysmal afib, and RA who was recently hospitalized in [place] for UTI. Today at [place] she was noted to have fever and tachycardia. In the ED she had SVT at rate of 170 which converted spontaneously. She was noted to have a pneumonia on CXR and positive UA. Daughter does not want transfer to [place] or aggressive/invasive care. She is agreeable to admitting here and treating with antibiotics. Diagnosis: Stroke: No Modified Dain Scale: No Symptoms at All Modified Hendry Scale Score: 0 - Discharge Data Discharge Date: 08/27/19 Discharge Disposition: DC/Tfer to SNF 03 Condition: Stable - Referral to Home Health Primary Care Physician: Chris Herzog MD - Discharge Diagnosis/Problem(s) (1) Elevated troponin SNOMED Code(s): 167099920, 597978592, 823621586 ICD Code: R79.89 - OTHER SPECIFIED ABNORMAL FINDINGS OF BLOOD CHEMISTRY Status: Acute Current Visit: Yes (2) Pneumonia SNOMED Code(s): 272259988 ICD Code: J18.9 - PNEUMONIA, UNSPECIFIED ORGANISM Status: Acute Current Visit: Yes Qualifiers: Pneumonia type: due to unspecified organism Laterality: bilateral Lung location: lower lobe of lung Qualified Code(s): J18.9 - Pneumonia, unspecified organism (3) SVT (supraventricular tachycardia) SNOMED Code(s): 3429471 ICD Code: I47.1 - SUPRAVENTRICULAR TACHYCARDIA Status: Acute Current Visit: Yes (4) Acute cystitis with hematuria SNOMED Code(s): 55076046, 28034207 ICD Code: N30.01 - ACUTE CYSTITIS WITH HEMATURIA Status: Acute Current Visit: No (5) Dementia SNOMED Code(s): 61990920 ICD Code: F03.90 - UNSPECIFIED DEMENTIA WITHOUT BEHAVIORAL DISTURBANCE Status: Chronic Priority: High Current Visit: No Qualifiers: Dementia type: vascular dementia Dementia behavioral disturbance: without behavioral disturbance Qualified Code(s): F01.50 - Vascular dementia without behavioral disturbance (6) Dysphagia SNOMED Code(s): 39103103, 372344577 ICD Code: R13.10 - DYSPHAGIA, UNSPECIFIED Status: Chronic Current Visit: Yes (7) Paroxysmal A-fib SNOMED Code(s): 280335160 ICD Code: I48.0 - PAROXYSMAL ATRIAL FIBRILLATION Status: Chronic Current Visit: Yes (8) CVA (cerebral vascular accident) SNOMED Code(s): 629369590 ICD Code: I63.9 - CEREBRAL INFARCTION, UNSPECIFIED Status: Chronic Priority: High Current Visit: No Qualifiers: CVA mechanism: thrombosis Precerebral and cerebral artery: posterior cerebral artery Laterality of affected vessel: left Qualified Code(s): 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 She was treated with Vancomycin, Levaquin and Meropenem. She was given IVFs and blood during her stay as well. No source of bleeding found. hemoccult was negative. Sara, daughter, wanted no agressive treatments or transfers. She was ok with antibiotics. Slowly Yulia has improved and is very alert today. Leukocytosis improved today and hgb has remained stable. UC returned with no growth. She was maintained on Lvaquin for possible aspiration pneumonia. She was stated on Diltiazem 30 mg Q6hrs, Aflutter/.afib improved. She was transitioned to Diltiazem 120 CD daily. She would need anticoagulation, but previously family had declined this and continue to. I did speak with Sara today regarding discharge. She is in agreement. We also discussed at length our recommendation for palliative measures due to end stage dementia and dysphagia. Aspiration pneumonia will contnue to be a concern and palliative measures may be the best option. She was receptive to information, but did not want to make decision right now. Will continue Levaquin for 2 more doses at [place]. She will be transferred back to [place] today. Return to ED or clinic if concerns should arise. - Patient Instructions Diet: Mechanical Soft, Pureed Diet, Other: nectar thick liquids Activity: As Tolerated Driving: Do Not Drive Showering/Bathing: May Shower Notify Provider of: Fever, Increased Pain, Swelling and Redness, Drainage, Nausea and/or Vomiting Other/Special Instructions: PT/OT to evaluate and treat - Discharge Plan *PRESCRIPTION DRUG MONITORING PROGRAM REVIEWED*: Not Applicable *COPY OF PRESCRIPTION DRUG MONITORING REPORT IN PATIENT DAREN: Not Applicable Prescriptions/Med Rec: Diltiazem [Cardizem CD] 120 mg PO DAILY #30 cap.cd levoFLOXacin [Levaquin] 750 mg PO Q48H #2 tab Home Medications: Home Meds Iron Polysaccharide Complex [Poly-Iron] 150 mg PO DAILY 05/05/16 [History] Isosorbide Mononitrate [Imdur] 30 mg PO DAILY 05/05/16 [History] Potassium Chloride 40 meq PO DAILY 10/27/16 [History] Levothyroxine [Synthroid] 200 mcg PO ACBREAKFAST 06/02/18 [History] Acetaminophen 500 mg PO TID 08/23/18 [History] Magnesium Hydroxide [Milk of Magnesia] 30 ml PO DAILY PRN 08/20/19 [History] Albuterol Sulfate 1 inh IH Q4H PRN 08/24/19 [History] Bisacodyl [Laxative Suppository] 10 mg RC DAILY PRN 08/24/19 [History] Cefpodoxime Proxetil 5 ml PO BID 08/24/19 [History] Diphenhyd/Lidocaine/MagAl/Daniel [First-Mouthwash BLM Susp] 1 swab PO Q8H PRN 08/24/19 [History] Metoprolol Tartrate 25 mg PO BID 08/24/19 [History] atorvaSTATin [Lipitor] 40 mg PO BEDTIME 08/24/19 [History] Diltiazem [Cardizem CD] 120 mg PO DAILY #30 cap.cd 08/27/19 [Rx] levoFLOXacin [Levaquin] 750 mg PO Q48H #2 tab 08/27/19 [Rx] Oxygen Therapy Mode: Room Air Referrals: Chris Herzog MD [Primary Care Provider] - (arrange follow up on [place] rounds) - Discharge Summary/Plan Comment DC Time >30 min.: Yes (discussing care with daughter prior to discharge.) - Patient Data Vitals - Most Recent: Last Vital Signs Temp 98.7 F 08/27/19 08:00 Pulse 83 08/27/19 08:31 Resp 17 08/27/19 08:00 BP 129/61 08/27/19 08:32 Pulse Ox 95 08/27/19 08:00 Weight - Most Recent: 50.621 kg I&O - Last 24 hours: Intake & Output 08/26/19 08/27/19 08/27/19 22:59 06:59 14:59 Intake Total 1846 710 Output Total 453 Balance 1393 710 Lab Results - Last 24 hrs: Laboratory Results - last 24 hr 08/27/19 08/27/19 Range/Units 05:52 05:52 WBC 6.69 (4.0-11.0) K/uL RBC 3.45 L (4.30-5.90) M/uL Hgb 9.9 L (12.0-16.0) g/dL Hct 30.6 L (36.0-46.0) % MCV 88.7 (80.0-98.0) fL MCH 28.7 (27.0-32.0) pg MCHC 32.4 (31.0-37.0) g/dL RDW Std Deviation 59.8 (28.0-62.0) fl RDW Coeff of Avinash 18 H (11.0-15.0) % Plt Count 289 (150-400) K/uL MPV 8.70 (7.40-12.00) fL Add Manual Diff YES Neutrophils % (Manual) 71 (48.0-80.0) % Band Neutrophils % 11 % Lymphocytes % (Manual) 6 L (16.0-40.0) % Monocytes % (Manual) 12 (0.0-15.0) % Nucleated RBC % 0.0 /100WBC Absolute Seg Neuts 4.7 (1.4-5.7) Band Neutrophils # 0.7 Lymphocytes # (Manual) 0.4 L (0.6-2.4) Monocytes # (Manual) 0.8 (0.0-0.8) Nucleated RBCs # 0 K/uL Sodium 138 (136-145) mmol/L Potassium 3.4 L (3.5-5.1) mmol/L Chloride 106 (98-107) mmol/L Carbon Dioxide 21.8 (21.0-32.0) mmol/L BUN 9 (7.0-18.0) mg/dL Creatinine 0.6 (0.6-1.0) mg/dL Est Cr Clr Drug Dosing 47.45 mL/min Estimated GFR (MDRD) > 60.0 ml/min Glucose 81 (74-106) mg/dL Calcium 7.4 L (8.5-10.1) mg/dL Magnesium 1.8 (1.8-2.4) mg/dL CHELSEY Results - Last 24 hrs: Microbiology 08/23/19 18:05 Aerobic Blood Culture - Preliminary Blood - Venous - Lab Draw NO GROWTH AFTER 3 DAYS Anaerobic Blood Culture - Final 08/23/19 17:56 Aerobic Blood Culture - Preliminary Blood - Venous NO GROWTH AFTER 3 DAYS Anaerobic Blood Culture - Final Med Orders - Current: Current Medications Albuterol (Ventolin Hfa) 0 gm INH Q4H PRN PRN Reason: Wheezing Last Admin: 08/26/19 05:55 Dose: 1 puff Documented by: Albuterol/Ipratropium (Duoneb 3.0-0.5 Mg/3 Ml) 3 ml NEB Q4HRRT PRN PRN Reason: Wheezing Last Admin: 08/27/19 05:56 Dose: 3 ml Documented by: Aspirin (Aspirin) 300 mg RECTAL BEDTIME [facility] Last Admin: 08/26/19 20:53 Dose: 300 mg Documented by: Diltiazem HCl (Diltiazem) 10 mg IVPUSH Q3H PRN PRN Reason: Heart rate greater than 130 Last Admin: 08/26/19 11:24 Dose: 10 mg Documented by: Diltiazem HCl (Cardizem Cd) 120 mg PO DAILY [facility] Heparin Sodium (Porcine) (Heparin Sodium) 5,000 units SUBCUT Q8H [facility] Last Admin: 08/27/19 06:17 Dose: 5,000 units Documented by: Pantoprazole Sodium 40 mg/ (Sodium Chloride) 10 mls @ 300 mls/hr IV Q12H [facility] Last Admin: 08/27/19 08:30 Dose: 300 mls/hr Documented by: Isosorbide Mononitrate (Imdur) 30 mg PO DAILY [facility] Last Admin: 08/27/19 08:32 Dose: 30 mg Documented by: Levofloxacin (Levaquin) 750 mg PO Q48H [facility] Levothyroxine Sodium (Synthroid) 200 mcg PO ACBREAKFAST [facility] Last Admin: 08/27/19 06:29 Dose: 200 mcg Documented by: Metoprolol Tartrate (Lopressor) 25 mg PO BID [facility] Last Admin: 08/27/19 08:31 Dose: 25 mg Documented by: Sodium Chloride (Saline Flush) 2.5 ml FLUSH ASDIRECTED PRN PRN Reason: Keep Vein Open Discontinued Medications Adenosine (Adenocard) 6 mg IVPUSH NOW ONE Stop: 08/23/19 17:48 Last Admin: 08/23/19 18:40 Dose: Not Given Documented by: Aspirin (Aspirin) Confirm Administered Dose 324 mg .ROUTE .STK-MED ONE Stop: 08/23/19 18:59 Last Admin: 08/23/19 19:45 Dose: Not Given Documented by: Diltiazem HCl (Diltiazem) 20 mg IVPUSH Q3H PRN PRN Reason: Heart rate >130 Stop: 08/25/19 00:10 Last Admin: 08/24/19 00:31 Dose: 20 mg Documented by: Diltiazem HCl (Cardizem) 30 mg PO Q6HR AYESHA Last Admin: 08/27/19 06:16 Dose: 30 mg Documented by: Vancomycin HCl 1 gm/ Dextrose/ (Water) 250 mls @ 167 mls/hr IV ONETIME ONE Stop: 08/23/19 19:13 Last Admin: 08/23/19 19:28 Dose: Not Given Documented by: Sodium Chloride (Normal Saline) 1,000 mls @ 999 mls/hr IV .Bolus ONE Stop: 08/23/19 18:44 Last Admin: 08/23/19 17:54 Dose: 999 mls/hr Documented by: Ceftriaxone Sodium/Dextrose (Rocephin In Dextrose,Iso-Osm 1 Gm/50 Ml) Confirm Administered Dose 50 mls @ as directed .ROUTE .STK-MED ONE Stop: 08/23/19 18:01 Last Admin: 08/23/19 18:47 Dose: Not Given Documented by: Ceftriaxone Sodium/Dextrose 1 (gm/ Premix) 50 mls @ 100 mls/hr IV ONETIME ONE Stop: 08/23/19 18:32 Last Admin: 08/23/19 18:08 Dose: 100 mls/hr Documented by: Vancomycin HCl 1 gm/ Sodium (Chloride) 250 mls @ 166 mls/hr IV ONETIME ONE Stop: 08/23/19 20:42 Last Admin: 08/23/19 19:28 Dose: 166 mls/hr Documented by: Cefepime HCl 1 gm/ Premix 50 mls @ 100 mls/hr IV Q8H AYESHA Levofloxacin/Dextrose 750 mg/ (Premix) 150 mls @ 100 mls/hr IV Q48H [facility] Last Admin: 08/25/19 23:08 Dose: 100 mls/hr Documented by: Meropenem 1 gm/ Sodium (Chloride) 100 mls @ 200 mls/hr IV Q12H [facility] Last Admin: 08/24/19 00:47 Dose: Not Given Documented by: Vancomycin HCl 0.75 gm/ Sodium (Chloride) 250 mls @ 166.667 mls/hr IV Q24H [facility] Last Admin: 08/26/19 19:20 Dose: 166.667 mls/hr Documented by: Meropenem/Sodium Chloride (Meropenem) Confirm Administered Dose 50 mls @ as directed IV .STK-MED ONE Stop: 08/23/19 22:59 Last Admin: 08/24/19 00:26 Dose: 100 mls/hr Documented by: Sodium Chloride (Normal Saline) 1,000 mls @ 75 mls/hr IV ASDIRECTED [facility] Last Admin: 08/27/19 06:27 Dose: 75 mls/hr Documented by: Meropenem/Sodium Chloride 1 gm (/ Premix) 50 mls @ 100 mls/hr IV Q12H [facility] Last Admin: 08/26/19 01:04 Dose: 100 mls/hr Documented by: Magnesium Sulfate 2 gm/ Premix 50 mls @ 50 mls/hr IV ONETIME ONE Stop: 08/24/19 13:49 Last Admin: 08/24/19 13:16 Dose: 50 mls/hr Documented by: Sodium Chloride (Normal Saline) 500 mls @ 999 mls/hr IV .BOLUS [facility] Magnesium Sulfate 2 gm/ Premix 50 mls @ 50 mls/hr IV ONETIME ONE Stop: 08/27/19 09:02 Last Admin: 08/27/19 08:33 Dose: 50 mls/hr Documented by: Levothyroxine Sodium (Synthroid) 100 mcg PO ACBREAKFAST [facility] Last Admin: 08/25/19 08:00 Dose: 100 mcg Documented by: Metoprolol Tartrate (Lopressor) 5 mg IVPUSH ONETIME ONE Stop: 08/23/19 19:09 Last Admin: 08/23/19 19:41 Dose: 5 mg Documented by: Metoprolol Tartrate (Lopressor) 12.5 mg PO BID [facility] Last Admin: 08/24/19 22:03 Dose: Not Given Documented by: Potassium Chloride (Klor-Con M20) 40 meq PO ONETIME ONE Stop: 08/27/19 08:04 Last Admin: 08/27/19 08:31 Dose: 40 meq Documented by: Sodium Chloride (Saline Flush) 10 ml FLUSH ASDIRECTED PRN PRN Reason: Keep Vein Open Vancomycin HCl (Vancocin) Confirm Administered Dose 1 gm .ROUTE .STK-MED ONE Stop: 08/23/19 19:04 Last Admin: 08/23/19 19:39 Dose: Not Given Documented by: Vancomycin HCl (Pharmacy To Dose - Vancomycin) 1 dose .XX ASDIRECTED AYESHA - Exam General: Reports: Alert, Cooperative, No Acute Distress. Denies: Oriented Lungs: Reports: Clear to Auscultation, Normal Respiratory Effort Cardiovascular: Reports: Regular Rate, Regular Rhythm GI/Abdominal Exam: Normal Bowel Sounds, Soft, Non-Tender Extremities: Normal Inspection, Normal Range of Motion, Non-Tender, No Pedal Edema Psy/Mental Status: Reports: Alert
[2019-08-27 10:30] VITALS: BP 124/69; PULSE 80
[2019-08-27] MEDS ORDERED: Levofloxacin 250 MG Tab PO SCH (21:00)
== END 2019-08-27 13:30 | DRG 871 ==
LOC: MW.ED 17:09 → MW.MS 18:44 → OBSVTOIN 08-25 12:26
PROVIDERS: ADMIT Internal Medicine; ATTEND Internal Medicine
DX: A41.9 Sepsis, unspecified organism (principal); J18.9 Pneumonia, unspecified organism; N39.0 Urinary tract infection, site not specified; I63.332 Cerebral infarction due to thrombosis of left posterior cerebral artery; R79.89 Other specified abnormal findings of blood chemistry; J69.0 Pneumonitis due to inhalation of food and vomit; I47.1 Supraventricular tachycardia; N30.01 Acute cystitis with hematuria; R91.1 Solitary pulmonary nodule; R74.8 Abnormal levels of other serum enzymes; F01.50 Vascular dementia, unspecified severity, without behavioral disturbance, psychotic disturbance, mood disturbance, and anxiety; R29.6 Repeated falls; R13.10 Dysphagia, unspecified; I48.0 Paroxysmal atrial fibrillation; I10 Essential (primary) hypertension; M06.9 Rheumatoid arthritis, unspecified; E03.9 Hypothyroidism, unspecified; I48.91 Unspecified atrial fibrillation; Y95 Nosocomial condition; K21.9 Gastro-esophageal reflux disease without esophagitis; D64.9 Anemia, unspecified; Z88.6 Allergy status to analgesic agent; Z86.718 Personal history of other venous thrombosis and embolism; Z86.711 Personal history of pulmonary embolism; Z79.01 Long term (current) use of anticoagulants; Z90.12 Acquired absence of left breast and nipple; I25.2 Old myocardial infarction; Z90.710 Acquired absence of both cervix and uterus; Z79.899 Other long term (current) drug therapy; Z79.890 Hormone replacement therapy; Z88.5 Allergy status to narcotic agent; Z88.0 Allergy status to penicillin; Z91.041 Radiographic dye allergy status; Z88.8 Allergy status to other drugs, medicaments and biological substances; Z85.3 Personal history of malignant neoplasm of breast; Z86.73 Personal history of transient ischemic attack (TIA), and cerebral infarction without residual deficits
CPT/HCPCS: 36415 ×2; 71045; 80048; 80053; 81001; 83605; 83735; 84100; 84443; 84484 ×3; 85025 ×2; 85610; 87040 ×2; 87086; 93005; 96365; 96366; 96367; 96375; 99285; A9270 ×10; J0696; J1644 ×5; J1956; J2185 ×3; J3370 ×2; J3475; J3490 ×4; J7030 ×5; J7050 ×2; U0002; 36430; 82272; 85014; 85018; 86850; 86900; 86901; 86920; 86921; 86922; 94640; 96361; 96372; 96376; 99283; C9113; G0378; J0153; J7620-GY; P9016